=== PATIENT | female | born 1940 | race Caucasian/White ===

== ENCOUNTER → 2016-09-16 | Outpatient (CLI) | payer MEDICARE, OTHER ==
[~2016-09-16] MED LIST: AC500T PO; AGM875T PO; FLUC200T45 PO; PRD20T PO; SULF1TAB38 PO
--- OUTSIDE RECORDS SUMMARY | 2016-09-16 07:17 | XMS REPORT | Continuity of Care Document ---
Author Author [facility] Organization [facility] Address Unknown Phone Unavailable Care Team Providers Care Obgyn Hospitalist Physician Name Role Phone DIETER JACKSON MD PP Insurance Providers Payer Name Policy Number Subscriber Name Relationship s Medicare [id number] Brigid Toro Self / Same As Patient [employer] [id number] Brigid Toro Self / Same As Patient Advance Directives Directive Response Recorded Date Advance Directives N 03/24/13 3:13pm Problems No Known Problems or Medical conditions. Social History History Response Recorded Date/Time Alcohol Use Denies Use 03/24/13 3:13pm Recreational Drug Use N 03/24/13 3:13pm Recent Foreign Travel N 03/24/13 3:13pm Recent Infectious Disease Exposure N 3:13pm Hospitalization with Isolation Denies 3:13pm Allergies, Adverse Reactions, Alerts Allergen Type Severity Reaction Last Updated diphenhydramine HCl Adverse Reaction Mild HYPERACTIVITY 04/15/11 Medications Medication Dose Units Route Sig Qty Days Fluconazole (Diflucan 200 Mg Tab) 1 Each PO DAILY 10 Amoxicillin/Clavulanate Potassium (Augmentin 875-125 Tablet) 1 Tab PO BID 20 Acetaminophen (Tylenol) 500 Mg PO PRN Prednisone 40 Mg PO DAILY 6 Trimethoprim/Sulfamethoxazole (Bactrim Ds) 1 Ea PO BID 20 Response Recorded Date/Time Status not known Unknown Results No Known Relevant Diagnostic Tests, Laboratory Data and/or Discharge Summary. Encounters Encounter Location Date/Time Departed Emergency Room [facility] 3:03pm
--- NOTE | 2016-09-16 11:49 | Diagnostic Imaging Report ---
PROCEDURE: US Abdomen, limited. TECHNIQUE: Multiple realtime grayscale images were obtained over the abdomen in various projections. INDICATION: Ultrasound of the abdomen. INDICATION: Left lower quadrant mass. FINDINGS: The palpable area appears to correspond with a hernia with an abdominal wall defect measuring 9.7 x 6.6 cm that is accentuated with Valsalva maneuver. It probably contains abdominal fat and possibly small bowel loops. IMPRESSION: Findings suggestive of a relatively large ventral hernia in the left lower quadrant. Correlate clinically and with CT scan if needed. Dictated by: Dictated on workstation # [id number]
== END ==
LOC: RAD 07:14
PROVIDERS: ATTEND Nurse Practitioner Family
DX: R19.04 Left lower quadrant abdominal swelling, mass and lump (principal)
CPT/HCPCS: 76705

== ENCOUNTER → 2017-03-23 | Outpatient (CLI) | payer MEDICARE, OTHER ==
--- NOTE | 2017-03-23 13:26 | Diagnostic Imaging Report ---
CLINICAL INDICATION: Patient with sinus pressure and headache. EXAM: Axial maxillofacial CT scan performed without IV contrast with coronal reformations. COMPARISON: CT scan sinuses dated 04/30/2013. FINDINGS: PARANASAL SINUSES: FRONTAL: Unremarkable. ETHMOID: Unremarkable. MAXILLARY: Unremarkable. SPHENOID: There is mucosal thickening. 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 NASAL SEPTUM: Stable rightward nasal septal deviation. VISUALIZED TEMPORAL BONE STRUCTURES: Unremarkable. BONY STRUCTURES: Unremarkable. EXTRACRANIAL SOFT TISSUE/ ORBITS: Unremarkable. IMPRESSION: 1: There is minimal sphenoid sinus disease. 2: There is stable rightward nasal septal deviation. 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 Dictated by: Dictated on workstation # [id number]
== END ==
LOC: RAD 11:51
PROVIDERS: ATTEND Otolaryngology Otolaryngology/Facial Plastic Surgery
DX: J34.2 Deviated nasal septum (principal); J34.9 Unspecified disorder of nose and nasal sinuses
CPT/HCPCS: 70486

== ENCOUNTER → 2018-02-22 | Outpatient (CLI) | payer MEDICARE, OTHER ==
--- NOTE | 2018-02-22 18:28 | Diagnostic Imaging Report ---
INDICATION: Left ankle pain. FINDINGS: Three views of the left ankle show no fracture, dislocation or other acute abnormalities. IMPRESSION: Negative left ankle. Dictated by: Dictated on workstation # [id number]
== END ==
LOC: RAD 10:21
PROVIDERS: ATTEND Nurse Practitioner Family
DX: M25.572 Pain in left ankle and joints of left foot (principal)
CPT/HCPCS: 73610

== ENCOUNTER 2018-05-15 22:24 | Emergency (ER) | payer MEDICARE, OTHER ==
[~2018-05-15] VITALS: Ht 152.4 cm; Wt 89.4 kg
--- OUTSIDE RECORDS SUMMARY | 2018-05-15 22:28 | XMS REPORT | Clinical Summary ---
Author Author [facility] Organization [facility] Address Unknown Phone Unavailable Care Team Providers Care Excel Vba Developer Name Role Phone PCP Unavailable Source Comments Some departments are not documenting in the electronic medical record. If you do not see the information that you expected, contact Release of Information in the Health Information Management department at [phone] for further assistance in locating additional records.[facility] Allergies Not on File Current Medications Not on file Active Problems Not on file Encounters Date Type Specialty Care Team Description 04/20/2018 Ancillary Radiology Outpatient, Radiologist Diagnosis unknown Orders 02/22/2018 Hospital Radiology Encounter from Last 3 Months Social History Tobacco Use Types Packs/Day Years Used Date Never Assessed Sex Assigned at Date Recorded Not on file Last Filed Vital Signs Not on file Plan of Treatment Health Maintenance Due Date Last Done Comments PHYSICAL (COMPREHENSIVE) 1947 EXAM PERTUSSIS VACCINE 1952 TETANUS VACCINE 1958 SHINGLES RECOMBINANT 1991 VACCINE (1 of 2) OSTEOPOROSIS SCREENING 2006 PNEUMONIA (PCV13/PPSV23) 2006 VACCINES (1 of 2 - PCV13) INFLUENZA VACCINE 06/05/2018 Results * GENERAL RAD LOWER EXT EXTERNAL IMAGING (02/22/2018) Narrative Performed At This order has been auto finalized and does not contain a result. from Last 3 Months
--- OUTSIDE RECORDS SUMMARY | 2018-05-15 22:28 | XMS REPORT | Encounter Summary ---
Author Author [facility] Organization [facility] Address Unknown Phone Unavailable Care Team Providers Care Credit Risk Specialist Name Role Phone PCP Unavailable Encounter Details Date Type Department Care Team Description 02/22/2018 Hospital [facility] Encounter Hospital Radiology [facility] [address] [place] [address] Social History Tobacco Use Types Packs/Day Years Used Date Never Assessed Sex Assigned at Date Recorded Not on file as of this encounter Plan of Treatment Not on fileas of this encounter Results * GENERAL RAD LOWER EXT EXTERNAL IMAGING (02/22/2018) Narrative Performed At This order has been auto finalized and does not contain a result. in this encounter Visit Diagnoses Diagnosis Diagnosis unknown Other unknown and unspecified cause of morbidity or mortality
--- OUTSIDE RECORDS SUMMARY | 2018-05-15 22:28 | XMS REPORT | Continuity of Care Document ---
Author Author [facility] Organization [facility] Address Unknown Phone Unavailable Allergies Active Description Code Type Severity Reaction Onset Reported/Identified Relationship to Patient Clinical Status Yes diphenhydramine HCl [id number] Drug Allergy Mild HYPERACTIVITY 2010 Medications There is no data. 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 03/25/2013 CATHIE WEBSTER MD Ot 784.7 EPISTAXIS 03/25/2013 CATHIE WEBSTER MD Ot V58.69 OTH MED,LT,CURRENT USE 09/17/2016 EMERITA FARRIS ACUTE CARE ASSISTANT Ot R19.04 LEFT LOWER QUADRANT ABDOMINAL SWELLING, 10/06/2016 EMERITA FARRIS ACUTE CARE ASSISTANT Ot R19.04 LEFT LOWER QUADRANT ABDOMINAL SWELLING, 10/08/2016 EMERITA FARRIS ACUTE CARE ASSISTANT Ot R19.04 LEFT LOWER QUADRANT ABDOMINAL SWELLING, 04/14/2017 CLAUDIO FABIAN MD Ot 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 04/14/2017 CLAUDIO FABIAN MD Ot J34.9 UNSPECIFIED DISORDER OF NOSE AND NASAL S 04/30/2017 CLAUDIO FABIAN MD Ot 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 04/30/2017 CLAUDIO FABIAN MD Ot J34.9 UNSPECIFIED DISORDER OF NOSE AND NASAL S 02/23/2018 EMERITA FARRIS ACUTE CARE ASSISTANT Ot M25.572 PAIN IN LEFT ANKLE AND JOINTS OF LEFT FO 03/14/2018 EMERITA FARRIS ACUTE CARE ASSISTANT Ot M25.572 PAIN IN LEFT ANKLE AND JOINTS OF LEFT FO 03/17/2018 EMERITA FARRIS ACUTE CARE ASSISTANT Ot M25.572 PAIN IN LEFT ANKLE AND JOINTS OF LEFT FO 04/24/2018 KERRIE MORE Ot 473.9 CHRONIC SINUSITIS NOS 04/24/2018 EMERITA FARRISP Ot R19.04 LEFT LOWER QUADRANT ABDOMINAL SWELLING, 04/24/2018 RUI BENDER, CLAUDIO Wiseman Ot 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 Results There is no data. Encounters ACCT No. Visit Date/Time Discharge Status Pt. Type Provider Facility Loc./Unit Complaint [id number] 04/26/2018 08:59:00 04/26/2018 23:59:59 CLS Outpatient CLAUDIO GALLEGOS MD [facility] RAD LACERATION OF MUSCLES AND TENDONS LT LEG [id number] 02/22/2018 10:21:00 02/22/2018 23:59:59 CLS Outpatient EMERITA FARRIS [facility] RAD LEFT ANKLE PAIN [id number] 03/23/2017 11:51:00 03/23/2017 23:59:59 CLS Outpatient CLAUDIO FABIAN MD [facility] RAD CHRONIC SINUSITIS [id number] 09/16/2016 07:14:00 09/16/2016 23:59:59 CLS Outpatient EMERITA FARRISP [facility] RAD LLQ MASS [id number] 04/30/2013 08:33:00 04/30/2013 23:59:59 CLS Outpatient KERRIE MORE [facility] RAD RECURRENT SINUSITIS [id number] 03/25/2013 09:13:00 03/25/2013 12:00:00 DIS Emergency DARIN BENDER, CATHIE Shin [facility] ER BLOODY NOSE [id number] 03/24/2013 15:03:00 03/24/2013 17:45:00 DIS Emergency ANDREINA KEANE DO [facility] ER NOSE BLEED
--- OUTSIDE RECORDS SUMMARY | 2018-05-15 22:28 | XMS REPORT | Continuity of Care Document ---
Author Author [facility] Organization [facility] Address Unknown Phone Unavailable Care Team Providers Care Passenger Relations Representative Name Role Phone DIETER JACKSON MD PP Insurance Providers Payer Name Policy Number Subscriber Name Relationship s Medicare [id number] Brigid Toro Self / Same As Patient [employer] [id number] Brigid Toro Self / Same As Patient Advance Directives Directive Response Recorded Date Advance Directives N 03/25/13 9:18am Problems No Known Problems or Medical conditions. Social History History Response Recorded Date/Time Alcohol Use Denies Use 03/25/13 9:18am Recreational Drug Use N 03/25/13 9:18am Recent Foreign Travel N 03/25/13 9:18am Recent Infectious Disease Exposure N 9:18am Hospitalization with Isolation Denies 9:18am Allergies, Adverse Reactions, Alerts Allergen Type Severity [...] Encounters Encounter Location Date/Time Departed Emergency Room [facility] 9:13am
--- OUTSIDE RECORDS SUMMARY | 2018-05-15 22:28 | XMS REPORT | Encounter Summary ---
Author Author [facility] Organization [facility] Address Unknown Phone Unavailable Care Team Providers Care Hedis Review Nurse Name Role Phone PCP Unavailable Encounter Details Date Type Department Care Team Description 04/20/2018 Ancillary Rad Outpatient, Radiologist Diagnosis unknown Orders [address] [place] [address] Social History Tobacco Use Types Packs/Day Years [...]
[2018-05-15] MEDS ORDERED: LACTATED RINGERS 1,000 ML IV ONE (22:41)
[2018-05-15] MEDS ORDERED: THYR65TA5 (22:44)
[2018-05-15] MEDS ORDERED: ONDANSETRON 4 MG/2 ML (SDV) Z0FRAN IVP ONE (22:45)
[2018-05-15 22:58] LABS: BASOPHILS % (AUTO) 0 % (0-10); EOSINOPHILS % (AUTO) 0 % (0-10); HEMATOCRIT 43 % (35-52); HEMOGLOBIN 14.6 G/DL (11.5-16.0); LYMPHOCYTES # (AUTO) 0.8 X 10^3 (1.0-4.0); LYMPHOCYTES % (AUTO) 9 % (12-44); MEAN CORPUSCULAR HEMOGLOBIN 29 PG (25-34); MEAN CORPUSCULAR HGB CONC 34 G/DL (32-36); MEAN CORPUSCULAR VOLUME 85 FL (80-99); MEAN PLATELET VOLUME 9.5 FL (7.4-10.4); MONOCYTES # (AUTO) 0.4 X 10^3 (0.0-1.0); MONOCYTES % (AUTO) 4 % (0-12); NEUTROPHILS # (AUTO) 7.6 X 10^3 (1.8-7.8); NEUTROPHILS % (AUTO) 86 % (42-75); PLATELET COUNT 161 10^3/uL (130-400); RED BLOOD COUNT 5.13 10^6/uL (4.35-5.85); WHITE BLOOD COUNT 8.8 10^3/uL (4.3-11.0)
--- NOTE | 2018-05-15 23:01 | ED General ---
General Chief Complaint: Abdominal/GI Problems Stated Complaint: SOB/WEAKNESS Nursing Triage Note: pt reports starting this am she woke up with dizziness and walters. Pt reports as the day progressed she became more nauseated and weak and starting vomiting. Nursing Sepsis Screen: No Definite Risk Source of Information: Patient History of Present Illness Date Seen by Provider: May 15, 2018 Time Seen by Provider: 22:25 Initial Comments PT ARRIVES VIA POV FROM HOME STATES SHE CAME TO ER BECAUSE SHE HAS BEEN SHAKEY AND NAUSEATED ALL DAY STATES SHE WOKE UP THIS MORNING AND STATES HER "HEAD FELT TWICE BIG NORMAL " BUT NO PAIN / NO HEADACHE STATES LATER IN THE MORNING SHE STARTED FEELING A LITTLE DIZZY WAS OUTSIDE THIS AFTERNOON AND STARTED TO GET NAUSEATED HAS VOMITED X 3 THIS EVENING, IS STILL NAUSEATED, BUT HAS CONTINUED TO EAT AND DRINK TODAY NO ABDOMINAL PAIN NO DIARRHEA OR CONSTIPATION--HAD 3 SOFT BM'S TODAY NO FEVER PT STATES "I SHAKE AND I THROW UP" STATES HER EARS ARE RINGING NO CHEST PAIN SLIGHT SHORTNESS OF BREATH NO SWELLING IN LEGS/ FEET OR PAIN IN CALVES NO VISION CHANGES NO PARESTHESIAS OR MOTOR DEFICITS FEELS WEAK ALL OVER NO KNOWN SICK CONTACTS OR SUSPICIOUS FOODS NO HISTORY OF SIMILAR PCP: 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 Allergies and Home Medications Allergies Coded Allergies: diphenhydramine HCl (Unverified Adverse Reaction, Mild, HYPERACTIVITY, 07/16) Home Medications Acetaminophen 500 Mg Tablet, 500 MG PO PRN, (Reported) Amoxicillin/Clavulanate K 1 Tab Tablet, 1 TAB PO BID FOR INFECTION Prescribed by: ANDREINA KEANE on 03/24/131719 Fluconazole 200 Mg Tablet, 1 EACH PO DAILY FOR YEAST Prescribed by: ANDREINA KEANE on 03/24/131719 Ondansetron 4 Mg Tab.rapdis, 4 MG PO Q4H Prescribed by: ANDREINA KEANE on 05/16/18 0048 Patient Home Medication List Home Medication List Reviewed: Yes Review of Systems Review of Systems Constitutional: see HPI; No chills, No diaphoresis; dizziness; No fever; malaise, weakness, other (SHAKEY) EENTM: no symptoms reported Respiratory: see HPI, short of breath Cardiovascular: no symptoms reported; No edema, No palpitations, No syncope, No vascular heart diseas Gastrointestinal: see HPI; No abdominal pain, No constipation, No diarrhea, No loss of appetite; nausea, vomiting Genitourinary: no symptoms reported Musculoskeletal: no symptoms reported Skin: no symptoms reported Psychiatric/Neurological: See HPI; Denies Numbness, Denies Paresthesia, Denies Seizure, Denies Tingling, Denies Tremors, Denies Weakness Hematologic/Lymphatic: No Symptoms Reported Immunological/Allergic: no symptoms reported Past Cysxjhm-Gsetxj-Gfneur Hx Patient Social History Alcohol Use: Denies Use Recreational Drug Use: No Smoking Status: Never a Smoker Recent Foreign Travel: No Contact w/Someone Who Travel: No Recent Infectious Disease Expo: No Seasonal Allergies Seasonal Allergies: Yes Past Medical History Surgeries: Yes (HYST/BSO; THUMB SURGERY) Gallbladder, Hysterectomy, Oophorectomy, Orthopedic Respiratory: No Cardiac: No Neurological: 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 oz. 89.821405hb; BMI Method:Stated General Appearance: No Apparent Distress, Obese, Other (TALKS AT LENGTH, WITHOUT DIFFICULTY) HEENT: PERRL/EOMI Neck: Full Range of Motion, Normal Inspection, Non Tender, Supple Respiratory: Normal Breath Sounds, No Accessory Muscle Use, No Respiratory Distress Cardiovascular: Regular Rate, Rhythm, No Edema, No JVD, No Murmur, Normal Peripheral Pulses Gastrointestinal: Normal Bowel Sounds, No Organomegaly, No Pulsatile Mass, Non Tender, Soft, Hernia (VENTRAL HERNIA) Back: No CVA Tenderness Extremity: Normal Capillary Refill, Normal Inspection, Normal Range of Motion, Non Tender, No Calf Tenderness, No Pedal Edema Neurologic/Psychiatric: Alert, Oriented x3, No Motor/Sensory Deficits, Normal Mood/Affect, 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0 10^3/uL Red Blood Count 5.13 4.35-5.85 10^6/uL Hemoglobin 14.6 11.5-16.0 G/DL Hematocrit 43 35-52 % Mean Corpuscular Volume 85 80-99 FL Mean Corpuscular Hemoglobin 29 25-34 PG Mean Corpuscular Hemoglobin Concent 34 32-36 G/DL Red Cell Distribution Width 15.0 H 10.0-14.5 % Platelet Count 161 130-400 10^3/uL Mean Platelet Volume 9.5 7.4-10.4 FL Neutrophils (%) (Auto) 86 H 42-75 % Lymphocytes (%) (Auto) 9 L 12-44 % Monocytes (%) (Auto) 4 0-12 % Eosinophils (%) (Auto) 0 0-10 % Basophils (%) (Auto) 0 0-10 % Neutrophils # (Auto) 7.6 1.8-7.8 X 10^3 Lymphocytes # (Auto) 0.8 L 1.0-4.0 X 10^3 Monocytes # (Auto) 0.4 0.0-1.0 X 10^3 Eosinophils # (Auto) 0.0 0.0-0.3 10^3/uL Basophils # (Auto) 0.0 0.0-0.1 10^3/uL Prothrombin Time 13.4 12.2-14.7 SEC INR Comment 1.0 0.8-1.4 Activated Partial Thromboplast Time 28 24-35 SEC Sodium Level 136 135-145 MMOL/L Potassium Level 4.1 3.6-5.0 MMOL/L Chloride Level 104 98-107 MMOL/L Carbon Dioxide Level 17 L 21-32 MMOL/L Anion Gap 15 H 5-14 MMOL/L Blood Urea Nitrogen 18 7-18 MG/DL Creatinine 0.87 0.60-1.30 MG/DL Estimat Glomerular Filtration Rate > 60 BUN/Creatinine Ratio 21 Glucose Level 122 H 70-105 MG/DL Calcium Level 9.3 8.5-10.1 MG/DL Corrected Calcium 9.3 8.5-10.1 MG/DL Magnesium Level 1.9 1.8-2.4 MG/DL Total Bilirubin 0.4 0.1-1.0 MG/DL Aspartate Amino Transf (AST/SGOT) 28 5-34 U/L Alanine Aminotransferase (ALT/SGPT) 28 0-55 U/L Alkaline Phosphatase 88 40-136 U/L Troponin I < 0.30 <0.30 NG/ML B-Type Natriuretic Peptide 97.7 <100.0 PG/ML Total Protein 7.4 6.4-8.2 GM/DL Albumin 4.0 3.2-4.5 GM/DL Amylase Level 91 25-125 U/L Lipase 52 8-78 U/L Urine Color YELLOW Urine Clarity CLEAR Urine pH 7 5-9 Urine Specific [place] 1.010 L 1.016-1.022 Urine Protein 1+ H NEGATIVE Urine Glucose (UA) NEGATIVE NEGATIVE Urine Ketones NEGATIVE NEGATIVE Urine Nitrite NEGATIVE NEGATIVE Urine Bilirubin NEGATIVE NEGATIVE Urine Urobilinogen NORMAL NORMAL MG/DL Urine Leukocyte Esterase 1+ H NEGATIVE Urine RBC (Auto) NEGATIVE NEGATIVE Urine RBC NONE /HPF Urine WBC 0-2 /HPF Urine Squamous Epithelial Cells 10-25 H /HPF Urine Crystals NONE /LPF Urine Bacteria TRACE /HPF Urine Casts NONE /LPF Urine Mucus NEGATIVE /LPF Urine Culture Indicated NO My Orders Orders - ANDREINA KEANE DO Saline Lock/Iv-Start (05/15/18 22:41) Ekg Tracing (05/15/18 22:41) Monitor-Rhythm Ecg Trace Only (05/15/18 22:41) Ct Head Wo (05/15/18 22:41) Amylase (05/15/18 22:41) BNP (05/15/18 22:41) Cbc With Automated Diff (05/15/18 22:41) Comprehensive Metabolic Panel (05/15/18 22:41) Lipase (05/15/18 22:41) Magnesium (05/15/18 22:41) Protime With Inr (05/15/18 22:41) Partial Thromboplastin Time (05/15/18 22:41) Troponin I (05/15/18 22:41) Ua Culture If Indicated (05/15/18 22:41) Acute Abd Series (05/15/18 22:41) Saline Lock/Iv-Start (05/15/18 22:41) Lactated Ringers (Lr 1000 Ml Iv Solution (05/15/18 22:41) Ondansetron Injection (Zofran Injectio (05/15/18 22:45) Medications Given in ED Current Medications Medications Dose Ordered Sig/Hector Route Start Time Stop Time Status Last Admin Dose Admin Lactated Ringer's 1,000 ml @ 0 mls/hr Q0M ONCE IV 05/15/18 22:41 05/15/18 22:43 DC 05/15/18 23:03 0 MLS/HR Ondansetron HCl 4 mg ONCE ONCE IVP 05/15/18 22:45 05/15/18 22:46 DC 05/15/18 23:03 4 MG Vital Signs/I&O 05/15/18 05/16/18 22:31 01:03 Temp 98.5 98.5 Pulse 73 73 Resp 16 16 B/P (MAP) 186/78 (114) 163/93 (114) Pulse Ox 92 92 05/16/18 00:00 Intake Total 1000 ml Balance 1000 ml Capillary Refill : Less Than 3 Seconds Blood Pressure Mean: 114 Progress Note : Progress Note NAUSEA IMPROVED AND NO VOMITING DURING ER STAY NO SHAKING/TREMORS DURING ER STAY STATES SHE FEELS BETTER AT DISMISSAL ECG Initial ECG Impression Date: May 15, 2018 Initial ECG Impression Time: 22:59 Initial ECG Rate: 2259 Initial ECG Rhythm: Normal Sinus Diagnostic Imaging Comments ACUTE ABDOMEN XRAYS--NO ACUTE PROCESS, PENDING RADIOLOGIST REVIEW CT HEAD--NO ACUTE PROCESS, PER STAT RAD VIA FAX @ 6720 Reviewed: Reviewed by Me Departure Impression Primary Impression: Nausea & vomiting Additional Impression: POSSIBLE VIRAL SYNDROME Disposition: 01 HOME, SELF-CARE Condition: Stable Departure-Patient Inst. Referrals: EMERITA FARRIS DNP (PCP) Primary Care Physician GHANSHYAM FARRIS DO (Family) Primary Care Physician Patient Instructions: Nausea and Vomiting, Adult (DC), Viral Gastroenteritis, Adult (DC) Add. Discharge Instructions: LOTS OF CLEAR LIQUIDS--WATER, BROTH, JELLO, GATORADE BRATS DIET--BANANAS, RICE, APPLESAUCE, TOAST, SALTINES FOLLOW UP WITH YOUR DR IN 2-3 DAYS IF NO BETTER All discharge instructions reviewed with patient and/or family. Voiced understanding. Scripts Ondansetron (Zofran Odt) 4 Mg Tab.rapdis 4 MG PO Q4H for Nausea/Vomiting, #10 TAB Prov: ANDREINA KEANE DO 05/16/18 ANDREINA KEANE DO May 15, 2018 23:01
[2018-05-15 23:07] LABS: PROTHROMBIN TIME PATIENT 13.4 SEC (12.2-14.7)
[2018-05-15 23:15] LABS: ALANINE AMINOTRANSFERASE 28 U/L (0-55); ALKALINE PHOSPHATASE 88 U/L (40-136); AMYLASE 91 U/L (25-125); BILIRUBIN,TOTAL 0.4 MG/DL (0.1-1.0); BUN/CREATININE RATIO 21; CALCIUM 9.3 MG/DL (8.5-10.1); CARBON DIOXIDE 17 MMOL/L (21-32); CHLORIDE 104 MMOL/L (98-107); CREATININE SERUM 0.87 MG/DL (0.60-1.30); GFR ESTIMATED > 60; GLUCOSE 122 MG/DL (70-105); LIPASE 52 U/L (8-78); MAGNESIUM 1.9 MG/DL (1.8-2.4); POTASSIUM 4.1 MMOL/L (3.6-5.0); SODIUM 136 MMOL/L (135-145); TOTAL PROTEIN 7.4 GM/DL (6.4-8.2)
[2018-05-15 23:59] LABS: BILIRUBIN,URINE NEGATIVE (NEGATIVE); CLARITY,URINE CLEAR; COLOR,URINE YELLOW; GLUCOSE, URINE (UA) NEGATIVE (NEGATIVE); KETONES,URINE NEGATIVE (NEGATIVE); LEUKOCYTE ESTERASE ,URINE 1+ (NEGATIVE); NITRITE,URINE NEGATIVE (NEGATIVE); PH,URINE 7 (5-9); PROTEIN,URINE 1+ (NEGATIVE); UROBILINOGEN,URINE NORMAL (NORMAL)
[2018-05-16 00:07] LABS: WBC,URINE 0-2 /HPF
[2018-05-16 00:08] LABS: BACTERIA,URINE TRACE /HPF
[2018-05-16] MEDS ORDERED: ONDA4TAB8 PO (00:48)
[2018-05-16 01:03] VITALS: BP 163/93
--- NOTE | 2018-05-16 07:25 | Diagnostic Imaging Report ---
INDICATION: Fall with injury to head. Noncontrast brain CT is performed. FINDINGS: There are diffuse atrophic changes. There are low-density changes in the deep white matter compatible with chronic ischemic change. There is no acute hemorrhage or subdural or epidural collection. There is no acute appearing process. Calvarial windows were unremarkable. IMPRESSION: Atrophy and chronic changes in deep white matter. No acute intracranial abnormality. Dictated by: Dictated on workstation # [id number]
--- NOTE | 2018-05-16 07:36 | Diagnostic Imaging Report ---
INDICATION: Nausea TECHNIQUE: Single view chest with supine and upright radiographs of the abdomen. 11:51 PM CORRELATION STUDY: None FINDINGS: Heart size enlarged. Vasculature overall within normal limits. Lungs demonstrate no infiltrate. Mild severity fecal retention. No evidence for large fecal impaction. No abnormally dilated loops of bowel or findings to suggest high degree bowel obstruction. Cholecystectomy clips in the right upper quadrant. No definitive pathologic intra-abdominal calcifications. IMPRESSION: 1. Negative for acute cardiopulmonary abnormality. 2. Unremarkable appearing bowel gas pattern. Dictated by: Dictated on workstation # [id number]
== END 2018-05-16 01:03 | disposition home or self-care (01) ==
LOC: EDUNIT# 22:24 → ER 22:25
DX: R11.2 Nausea with vomiting, unspecified (principal); S09.90XA Unspecified injury of head, initial encounter; M10.9 Gout, unspecified; E66.9 Obesity, unspecified; F41.9 Anxiety disorder, unspecified; F32.9 Major depressive disorder, single episode, unspecified; K21.9 Gastro-esophageal reflux disease without esophagitis; Z88.8 Allergy status to other drugs, medicaments and biological substances; Z68.38 Body mass index [BMI] 38.0-38.9, adult; Z90.710 Acquired absence of both cervix and uterus; Z87.19 Personal history of other diseases of the digestive system; W19.XXXA Unspecified fall, initial encounter
CPT/HCPCS: 36415; 70450; 74022; 80053; 81000; 82150; 83690; 83735; 83880; 84484; 85025; 85610; 85730; 93005; 93041; 96361; 96374

== ENCOUNTER → 2020-10-31 | Outpatient (CLI) | payer MEDICARE, OTHER ==
[~2020-10-31] MED LIST changes: +ONDA4TAB8 PO; +THYR65TA5
--- NOTE | 2020-10-31 13:08 | Diagnostic Imaging Report ---
CLINICAL INDICATIONS: Patient with thoracic facet joint pain. Patient with lumbar pain and paresthesias in lower extremity. EXAM: X-ray of the lumbar spine, 3 views. COMPARISON: X-ray of the lumbar spine dated 04/02/2009. FINDINGS: There is no acute lumbar spine fracture or dislocation. There are hypertrophic spurs involving the thoracolumbar spine which has slightly progressed in the interim. The lumbar spine intervertebral disk heights are maintained. There is progression of hypertrophic spurs and facet arthropathy involving the lumbar spine. There is sclerosis of the bilateral sacroiliac joints. Surgical clips are seen overlying the right upper quadrant which could be related to cholecystectomy changes. IMPRESSION: 1: There is no acute fracture or dislocation. 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 Dictated by: Dictated on workstation # [id number]
--- NOTE | 2020-10-31 16:32 | Diagnostic Imaging Report ---
CLINICAL INDICATION: Patient with thoracic facet joint pain. Patient has lumbar pain and paresthesia in the lower extremities. EXAM: X-ray of the thoracic spine, 3 views including swimmer's view. COMPARISON: X-ray of the thoracic spine dated 04/02/2009. FINDINGS: Visualized portions of the upper thoracic spinal lateral view are partially obscured by overlapping anatomical structures. There is slight progression of hypertrophic spurs throughout the thoracic spine. There is also slight progression of loss of disc space height at multiple levels involving the mid to upper thoracic spine. There is no acute thoracic spine fracture or dislocation. Surgical clips are seen overlying the right upper quadrant which could be related to cholecystectomy changes. There are hypertrophic spurs involving the cervical spine. IMPRESSION: There is progression of thoracic spine degenerative disease with no acute fracture or dislocation. Dictated by: Dictated on workstation # [id number]
== END ==
LOC: RAD 11:55
PROVIDERS: ATTEND Nurse Practitioner Family
DX: M47.815 Spondylosis without myelopathy or radiculopathy, thoracolumbar region (principal); R20.2 Paresthesia of skin
CPT/HCPCS: 72072; 72110

== ENCOUNTER → 2022-12-02 | Outpatient (CLI) | payer MEDICARE, OTHER ==
--- NOTE | 2022-12-02 15:36 | Diagnostic Imaging Report ---
PROCEDURE: US Bilateral lower extremity arterial. TECHNIQUE: Multiple real-time grayscale images are obtained through both lower extremity arterial systems with color Doppler imaging and color Doppler spectral analysis. 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 No focal elevated velocity suggests significant stenosis. IMPRESSION: Atherosclerotic changes within the lower extremities without hemodynamically significant stenosis or occlusion. Dictated by: Dictated on workstation # [id number]
== END ==
LOC: RAD 12:16
PROVIDERS: ATTEND Nurse Practitioner Family
DX: I73.9 Peripheral vascular disease, unspecified (principal); R09.89 Other specified symptoms and signs involving the circulatory and respiratory systems; K59.09 Other constipation
CPT/HCPCS: 93925

== ENCOUNTER 2023-03-08 12:00 | Emergency (ER) | payer MEDICARE, OTHER ==
[~2023-03-08] VITALS: Ht 152 cm; Wt 86.0 kg
--- NOTE | 2023-03-08 12:30 | ED Integumentary General ---
General Chief Complaint: Bite-Animal/Human/Insect Stated Complaint: BITES OF UNKNOWN ORIGIN Nursing Triage Note: PT AMB TO RM 7 WITH C/O BUG BITES AFTER PULLING WEEDS TUESDAY. PT NOTICED BITES TUESDAY MORNING Source: patient Exam Limitations: no limitations History of Present Illness Date Seen by Provider: Mar 08, 2023 Time Seen by Provider: 12:15 Initial Comments Patient is an 82-year-old female who presents to the emergency room with a rash to her buttocks, posterior legs right forearm and one little spot on her anterior lower abdominal wall. Patient is concerned for "oak mites". She states that she was clearing brush on of last week picking up loads of clark and sticks etc. She then had a fall in the yard on Tuesday and when she stood up she was having pain which caused her to examine herself and she noticed the rash. She states last night she had intense burning over the areas of rash. She states it lasted for about 2 hours. She denies fevers or chills. No shortness of breath. No diarrhea. No other concerns. She is not a diabetic. She has no history of arthritis. She has never had a rash like this before. She has used alcohol on the rash as well as cortisone and noxema skin cream. Timing/Duration: other (5 days) Location: torso (buttocks), extremities Possible Cause: no cause identified Associated Symptoms: denies symptoms Allergies and Home Medications Allergies Coded Allergies: diphenhydramine HCl (Unverified Adverse Reaction, Mild, HYPERACTIVITY, 04/15/11) morphine (Verified Adverse Reaction, Unknown, HEADACHE, 03/08/23) Patient Home Medication List Home Medication List Reviewed: Yes Acetaminophen (Tylenol) 500 Mg Tablet, 500 MG PO PRN, (Reported) Entered as Reported by: MARTINEZ JANG on 03/24/13 1515 Amoxicillin/Clavulanate K (Augmentin 875-125 Tablet) 1 Tab Tablet, 1 TAB PO BID Prescribed by: ANDREINA KEANE on 03/24/13 172 Fluconazole (Diflucan 200 Mg Tab) 200 Mg Tablet, 1 EACH PO DAILY Prescribed by: ANDREINA KEANE on 03/24/13 172 Ondansetron (Zofran Odt) 4 Mg Tab.rapdis, 4 MG PO Q4H Prescribed by: ANDREINA KEANE on 05/16/18 0048 Thyroid,Pork (Nature-Throid) 65 Mg Tablet, (Reported) Entered as Reported by: HENRY ALANIS on 05/15/18 2244 Triamcinolone Acetonide (Triamcinolone Acetonide 0.5% Cream) 0.5 % Cream..g., 1 APPLIC TP BID Prescribed by: BRAYDON PUENTE on 03/08/23 1328 Discontinued Medications Triamcinolone Acetonide (Triamcinolone Acetonide 0.5% Cream) 0.5 % Cream..g., 1 APPLIC TP BID Prescribed by: BRAYDON PUENTE on 03/08/23 1316 Review of Systems Review of Systems Constitutional: see HPI EENTM: no symptoms reported Respiratory: no symptoms reported Cardiovascular: no symptoms reported Gastrointestinal: no symptoms reported Genitourinary: no symptoms reported Musculoskeletal: no symptoms reported Skin: No pruritus; rash All Other Systems Reviewed Negative Unless Noted: Yes Past Vnztxfh-Fikpqs-Nvgnne Hx Patient Social History Tobacco Use?: No Use of E-Cig and/or Vaping dev: No Substance use?: No Alcohol Use?: No Pt feels they are or have been: No Seasonal Allergies Seasonal Allergies: Yes Past Medical History Surgery/Hospitalization HX: HYSTO, SAURABH Surgeries: Yes (HYST/BSO; THUMB SURGERY) Gallbladder, Hysterectomy, Oophorectomy, Orthopedic Respiratory: No Cardiac: No 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, 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 Genitourinary: No Gastrointestinal: Yes Abdominal Hernia, Gastroesophageal Reflux, Hiatal Hernia Musculoskeletal: Yes Gout Endocrine: Yes (OBESITY) Cancer: No Psychosocial: Yes Anxiety, Depression Integumentary: No Blood Disorders: No Adverse Reaction/Blood Tranf: No Physical Exam Vital Signs Vital Signs - First Documented 03/08/23 12:06 Temp 36.7 Pulse 85 Resp 14 B/P (MAP) 135/83 (100) Pulse Ox 96 O2 Delivery Room Air Capillary Refill : General Appearance: WD/WN, no apparent distress, obese HEENT: PERRL/EOMI Cardiovascular: regular rate, rhythm Respiratory: lungs clear, normal breath sounds, no respiratory distress, no accessory muscle use Gastrointestinal: non tender, soft Extremities: normal range of motion, no pedal edema Neurologic/Psychiatric: alert, normal mood/affect, oriented x 3 Skin: normal color, warm/dry, rash Skin Problem Location: generalized (buttocks; back of both legs. right forearm and one area to lower anterior abdominal wall - coin shaped; clearly demarcated; some are slightly raised/eczematous) Skin Problem Character: erythema, macules Progress/Results/Core Measures Results/Orders Lab Results Laboratory Tests Test 03/08/23 12:34 Range/Units White Blood Count 6.8 4.3-11.0 10^3/uL Red Blood Count 4.93 3.80-5.11 10^6/uL Hemoglobin 14.6 11.5-16.0 g/dL Hematocrit 45 35-52 % Mean Corpuscular Volume 92 80-99 fL Mean Corpuscular Hemoglobin 30 25-34 pg Mean Corpuscular Hemoglobin Concent 32 32-36 g/dL Red Cell Distribution Width 14.8 H 10.0-14.5 % Platelet Count 159 130-400 10^3/uL Mean Platelet Volume 9.6 9.0-12.2 fL Immature Granulocyte % (Auto) 1 % Neutrophils (%) (Auto) 71 42-75 % Lymphocytes (%) (Auto) 18 12-44 % Monocytes (%) (Auto) 7 0-12 % Eosinophils (%) (Auto) 3 0-10 % Basophils (%) (Auto) 1 0-10 % Neutrophils # (Auto) 4.9 1.8-7.8 10^3/uL Lymphocytes # (Auto) 1.2 1.0-4.0 10^3/uL Monocytes # (Auto) 0.4 0.0-1.0 10^3/uL Eosinophils # (Auto) 0.2 0.0-0.3 10^3/uL Basophils # (Auto) 0.0 0.0-0.1 10^3/uL Immature Granulocyte # (Auto) 0.1 0.0-0.1 10^3/uL Sodium Level 141 135-145 MMOL/L Potassium Level 4.2 3.6-5.0 MMOL/L Chloride Level 106 98-107 MMOL/L Carbon Dioxide Level 26 21-32 MMOL/L Anion Gap 9 5-14 MMOL/L Blood Urea Nitrogen 16 7-18 MG/DL Creatinine 0.96 0.60-1.30 MG/DL Estimat Glomerular Filtration Rate 59 BUN/Creatinine Ratio 17 Glucose Level 114 H 70-105 MG/DL Calcium Level 9.0 8.5-10.1 MG/DL Corrected Calcium 9.2 8.5-10.1 MG/DL Total Bilirubin 0.5 0.1-1.0 MG/DL Aspartate Amino Transf (AST/SGOT) 29 5-34 U/L Alanine Aminotransferase (ALT/SGPT) 29 0-55 U/L Alkaline Phosphatase 70 40-136 U/L C-Reactive Protein High Sensitivity 0.58 H 0.00-0.50 MG/DL Total Protein 7.0 6.4-8.2 GM/DL Albumin 3.7 3.2-4.5 GM/DL My Orders Orders - BRAYDON PUENTE MD Cbc With Automated Diff (03/08/23 12:25) Comprehensive Metabolic Panel (03/08/23 12:25) Hs C Reactive Protein (03/08/23 12:25) Vital Signs/I&O 03/08/23 03/08/23 12:06 13:33 Temp 36.7 Pulse 85 72 Resp 14 14 B/P (MAP) 135/83 (100) 125/76 Pulse Ox 96 96 O2 Delivery Room Air Room Air Blood Pressure Mean: 100 Progress Progress Note : Time: 13:19 Progress Note Seen and evaluated by me. Evaluation today includes physical exam, CBC, Chem-12 and CRP. Pertinent physical exam findings, diffuse coin shaped macular rash to the buttocks, lower extremities with scattered patches on the right upper ext remity and one lesion on the anterior abdominal wall. Patient's vital signs are stable. She is alert and oriented with no focal neurologic deficits. She is afebrile. Lungs are clear, heart is regular. Differential diagnosis based on history and physical exam contact dermatitis versus nummular eczema Patient's labs independently reviewed and interpreted by me. CBC is normal, Chem-12 is normal, CRP is 0.58. After discussion with the patient and further delineation of history, I believe this is more of a nummular eczema as a result of her work outside. Patient is advised to use steroid cream on the areas affected over the lower body. She will need to use the triamcinolone lotion twice a day for 2 to 4 weeks. I have encouraged her to have close follow-up with her primary care physician. I have advised her that once she has had this type of outbreak she may be more prone to this in the future. Return precautions to include fever, shortness of breath, worsening rash. These return precautions have been provided in both verbal and written format. Patient and her daughter who is at the bedside verbalized understanding and agreement of the plan of care. All questions are sought and answered. Patient is stable for discharge. Departure Impression Primary Impression: Dermatitis, nummular Disposition: 01 HOME, SELF-CARE Condition: Stable Departure-Patient Inst. Decision time for Depature: 13:16 Referrals: NO,LOCAL PHYSICIAN (PCP) Primary Care Physician GHANSHYAM FARRIS DO Patient Instructions: Skin Rash ED Add. Discharge Instructions: Bathe in warm water, not hot. Use a mild/gentle fragrance free soap. Apply the steroid cream where the lesions are twice a day for 1 month. PLease call your primary care physician for a follow up appointment in a week. Return to the Emergency Department for any new, concerning or emergent complaints. Scripts Triamcinolone Acetonide (Triamcinolone Acetonide 0.5% Cream) 0.5 % Cream..g. 1 APPLIC TP BID for 30 Days, #15 GM 1 Refill apply thin layer to affected area twice a day for 1 month Prov: BRAYDON PUENTE MD 03/08/23 Copy Copies To 1: GHANSHYAM FARRIS KATHRYN M MD Mar 08, 2023 12:30
[2023-03-08 12:39] LABS: BASOPHILS % (AUTO) 1 % (0-10); EOSINOPHILS # (AUTO) 0.2 10^3/uL (0.0-0.3); EOSINOPHILS % (AUTO) 3 % (0-10); HEMATOCRIT 45 % (35-52); HEMOGLOBIN 14.6 g/dL (11.5-16.0); LYMPHOCYTES # (AUTO) 1.2 10^3/uL (1.0-4.0); LYMPHOCYTES % (AUTO) 18 % (12-44); MEAN CORPUSCULAR HEMOGLOBIN 30 pg (25-34); MEAN CORPUSCULAR HGB CONC 32 g/dL (32-36); MEAN CORPUSCULAR VOLUME 92 fL (80-99); MEAN PLATELET VOLUME 9.6 fL (9.0-12.2); MONOCYTES # (AUTO) 0.4 10^3/uL (0.0-1.0); MONOCYTES % (AUTO) 7 % (0-12); NEUTROPHILS # (AUTO) 4.9 10^3/uL (1.8-7.8); NEUTROPHILS % (AUTO) 71 % (42-75); PLATELET COUNT 159 10^3/uL (130-400); WHITE BLOOD COUNT 6.8 10^3/uL (4.3-11.0)
[2023-03-08 12:49] LABS: ALBUMIN 3.7 GM/DL (3.2-4.5)
[2023-03-08 12:50] LABS: POTASSIUM 4.2 MMOL/L (3.6-5.0)
[2023-03-08 12:54] LABS: BILIRUBIN,TOTAL 0.5 MG/DL (0.1-1.0)
[2023-03-08 12:56] LABS: CREATININE SERUM 0.96 MG/DL (0.60-1.30)
[2023-03-08] MEDS ORDERED: TRIA15CR TP ×2 (13:16→13:28)
[2023-03-08 13:33] VITALS: BP 125/76
== END 2023-03-08 13:33 | disposition home or self-care (01) ==
LOC: EDUNIT# 12:00 → ER 12:03
DX: L30.0 Nummular dermatitis (principal); E66.9 Obesity, unspecified; Z68.37 Body mass index [BMI] 37.0-37.9, adult
CPT/HCPCS: 36415; 80053; 85025; 86141

== ENCOUNTER 2023-04-19 10:18 | Emergency (ER) | payer MEDICARE, OTHER ==
[~2023-04-19] VITALS: Ht 152 cm; Wt 88.4 kg
[~2023-04-19 10:18] MED LIST changes: +TRIA15CR TP
--- NOTE | 2023-04-19 10:50 | Diagnostic Imaging Report ---
CLINICAL HISTORY: Right arm pain. Injury. COMPARISON: None. TECHNIQUE: 2 views of the right humerus. FINDINGS: Acute spiral fracture seen involving the mid diaphysis of the right humerus with mild displacement. No focal osseous lesion. The right shoulder appears well aligned. IMPRESSION: 1. Acute spiral fracture involving the mid diaphysis of the right humerus. Dictated by: Dictated on workstation # [id number]
--- NOTE | 2023-04-19 11:08 | ED Fall/Injury ---
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 SLING AND SWATH APPLIED BY EMS Source: patient Exam Limitations: no limitations History of Present Illness Date Seen by Provider: Apr 19, 2023 Allergies and Home Medications Allergies Coded Allergies: diphenhydramine HCl (Unverified Adverse Reaction, Mild, HYPERACTIVITY, 04/15/11) morphine (Verified Adverse Reaction, Unknown, HEADACHE, 03/08/23) Patient Home Medication List Acetaminophen (Tylenol) 500 Mg Tablet, 500 MG PO PRN, (Reported) Entered as Reported by: MARTINEZ JANG on 03/24/13 1515 Amoxicillin/Clavulanate K (Augmentin 875-125 Tablet) 1 Tab Tablet, 1 TAB PO BID Prescribed by: ANDREINA KEANE on 03/24/13 1720 Fluconazole (Diflucan 200 Mg Tab) 200 Mg Tablet, 1 EACH PO DAILY Prescribed by: ANDREINA KEANE on 03/24/13 1720 Ondansetron (Zofran Odt) 4 Mg Tab.rapdis, 4 MG PO Q4H Prescribed by: ANDREINA KEANE on 05/16/18 0048 Thyroid,Pork (Nature-Throid) 65 Mg Tablet, (Reported) Entered as Reported by: HENRY ALANIS on 05/15/18 2244 Triamcinolone Acetonide (Triamcinolone Acetonide 0.5% Cream) 0.5 % Cream..g., 1 APPLIC TP BID Prescribed by: BRAYDON PUENTE on 03/08/23 1328 Past Wnhkkdr-Ugtjif-Wgsivw Hx Patient Social History Tobacco Use?: No Substance use?: No Alcohol Use?: No Immunizations Up To Date First/Initial COVID19 Vaccinat: NO Seasonal Allergies Seasonal Allergies: Yes Past Medical History Surgery/Hospitalization HX: HYSTO, SAURABH Surgeries: Yes (HYST/BSO; THUMB SURGERY) Gallbladder, Hysterectomy, Oophorectomy, Orthopedic Respiratory: No Cardiac: No 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 oz. 89.667174qc; 38.00 BMI Method:Stated Progress/Results/Core Measures Results/Orders My Orders Orders - ANNY PEREA MD Humerus, Right, 2 Views (04/19/23 10:30) Hydrocodone/Apap 5/325 Tablet (Hydrocod (04/19/23 12:00) Fentanyl Injection (Fentanyl Injection (04/19/23 12:15) Medications Given in ED Current Medications Medications Dose Ordered Sig/Hector Route Start Time Stop Time Status Last Admin Dose Admin Acetaminophen/ Hydrocodone Bitart 1 ea ONCE ONCE PO 04/19/23 12:00 04/19/23 12:01 DC 04/19/23 12:16 1 EA Fentanyl Citrate 50 mcg ONCE ONCE IM 04/19/23 12:15 04/19/23 12:16 DC 04/19/23 12:17 50 MCG Vital Signs/I&O 04/19/23 04/19/23 04/19/23 10:20 12:16 12:17 Temp 36.6 36.6 36.6 Pulse 62 Resp 20 B/P (MAP) 136/82 (100) Pulse Ox 98 O2 Delivery Room Air Blood Pressure Mean: 100 Departure Impression Primary Impression: Right humeral fracture Qualified Codes: S42.321A - Displaced transverse fracture of shaft of humerus, right arm, initial encounter for closed fracture Additional Impression: Fall on same level from tripping Disposition: 01 HOME, SELF-CARE Condition: Stable Departure-Patient Inst. Decision time for Depature: 13:49 Referrals: NO,LOCAL PHYSICIAN (PCP) Primary Care Physician CLAUDIO MIRELES MD Patient Instructions: Caring for your splint, Upper Arm Fracture Add. Discharge Instructions: Follow-up with Dr. Mireles or the orthopedic provider of your choice is soon as possible. Please call today for an appointment. Dr. Mireles's contact information is below. Use hydrocodone as prescribed for pain. You may use Tylenol (acetaminophen) for more minor pain. Hydrocodone contains acetaminophen. Do not use more than a total of 1000 mg of acetaminophen every 6 hours including the acetaminophen contained in your hydrocodone. Hydrocodone may cause constipation. You may wish to use a stool softener such as Colace while on hydrocodone. Hydrocodone may also cause drowsiness. Do not drive, operate machinery, or make important decisions while taking hydrocodone. You may ice your arm in 20-minute intervals if you can do so without getting the splint wet. Keep the splint and the sling as much as possible. Keep the splint dry. Do not get the splint wet when showering or bathing. If you need your splint adjusted or removed, you may return to the emergency room or contact Dr. Mireles is office to make these adjustments or changes. Return to the ER if you have any worsening of symptoms despite following these instructions. All discharge instructions reviewed with patient and/or family. Voiced underst anding. Scripts Docusate Sodium (Colace) 100 Mg Capsule 100 MG PO DAILY PRN for CONSTIPATION, #30 CAP Prov: ANNY PEREA MD 04/19/23 Hydrocodone/Acetaminophen (Hydrocodone-Acetamin 5-325 mg) 5 Mg-325 Mg Tablet 1 TAB PO Q4H PRN for PAIN-MODERATE (5-7), #20 TAB May use to prevent constipation with hydrocodone use. Prov: ANNY PEREA MD 04/19/23 ANNY PEREA MD Apr 19, 2023 11:08
[2023-04-19] MEDS ORDERED: HYDROcodone/ACETAMINOPHEN 5 MG/325 MG TABLET PO ONE (12:00)
[2023-04-19] MEDS ORDERED: fentaNYL INJECTION 100 MCG/2 ML VIAL IM ONE (12:15)
[2023-04-19] MEDS ORDERED: DOCU-143 PO (13:53)
[2023-04-19] MEDS ORDERED: ACHD5005 PO (13:53)
[2023-04-19 14:12] VITALS: BP 136/82
== END 2023-04-19 14:12 | disposition home or self-care (01) ==
LOC: EDUNIT# 10:18 → ER 10:19
DX: S42.341A Displaced spiral fracture of shaft of humerus, right arm, initial encounter for closed fracture (principal); E66.9 Obesity, unspecified; Z68.38 Body mass index [BMI] 38.0-38.9, adult; Z28.310 Unvaccinated for COVID-19; Z88.5 Allergy status to narcotic agent; W01.0XXA Fall on same level from slipping, tripping and stumbling without subsequent striking against object, initial encounter; Y92.096 Garden or yard of other non-institutional residence as the place of occurrence of the external cause
CPT/HCPCS: 29105; 73060

== ENCOUNTER → 2023-04-27 | Outpatient (CLI) | payer MEDICARE, OTHER ==
[~2023-04-27] MED LIST changes: +ACHD5005 PO; +DOCU-143 PO
--- NOTE | 2023-04-27 16:57 | Diagnostic Imaging Report ---
EXAMINATION: Right hand 3 views. HISTORY: Fracture of the humerus, hand injury. COMPARISON: None available. 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 No acute fracture seen. Alignment is normal. There is a chronic appearing ulnar styloid process fracture. IMPRESSION: No acute fracture is seen in the right hand. Dictated by: Dictated on workstation # [id number]
== END ==
LOC: RAD 11:09
PROVIDERS: ATTEND Nurse Practitioner Family
DX: S42.341D Displaced spiral fracture of shaft of humerus, right arm, subsequent encounter for fracture with routine healing (principal); X58.XXXD Exposure to other specified factors, subsequent encounter
CPT/HCPCS: 73130

== ENCOUNTER 2023-05-02 13:45 | Observation (INO) | payer MEDICARE, OTHER ==
[~2023-05-02] VITALS: Ht 152 cm; Wt 110.0 kg
--- NOTE | 2023-05-02 14:41 | ED General ---
General Chief Complaint: Upper Extremity Stated Complaint: RT ARM INJ | FALL Nursing Triage Note: FX THAT HAS ALREADY BEEN EVALUATED NO NEW INJURY Source of Information: Patient Exam Limitations: No Limitations History of Present Illness Date Seen by Provider: May 02, 2023 Time Seen by Provider: 14:15 Initial Comments Here with complaint of significant right upper arm pain and swelling of her arm and bruising. She had a fall and has known spiral fracture of the mid humerus on the right. She was in a sling and that was very effective early on and then saw Dr. Maya who placed her in an upper arm splinting device. That keeps falling down her arm and then its catching and scraping and turning her quite a bit and she has a fair amount of bruising to her arm and flank now. She is having difficulty in maneuvering in her house because of pain and difficulty with pulling herself up. Not doing well at home because of this and is here for further evaluation. Denies fever, chills, nausea, vomiting, diarrhea or chest pain or breathing problems. Timing/Duration: 1 Week, Getting Worse Severity: Moderate Associated Systoms: No Chest Pain, No Cough, No Fever/Chills, No Nausea/Vomiting, No Shortness of Air, No Weakness Allergies and Home Medications Allergies Coded Allergies: diphenhydramine HCl (Unverified Adverse Reaction, Mild, HYPERACTIVITY, 04/15/11) morphine (Verified Adverse Reaction, Unknown, HEADACHE, 03/08/23) Patient Home Medication List Home Medication List Reviewed: Yes Acetaminophen (Tylenol) 500 Mg Tablet, 500 MG PO PRN, (Reported) Entered as Reported by: MARTINEZ JANG on 03/24/13 1515 Amoxicillin/Clavulanate K (Augmentin 875-125 Tablet) 1 Tab Tablet, 1 TAB PO BID Prescribed by: ANDREINA KEANE on 03/24/13 1720 Docusate Sodium (Colace) 100 Mg Capsule, 100 MG PO DAILY PRN for CONSTIPATION Prescribed by: ANNY GARNETT on 04/19/23 1353 Fluconazole (Diflucan 200 Mg Tab) 200 Mg Tablet, 1 EACH PO DAILY Prescribed by: ANDREINA KEANE on 03/24/13 1720 Hydrocodone/Acetaminophen (Hydrocodone-Acetamin 5-325 mg) 5 Mg-325 Mg Tablet, 1 TAB PO Q4H PRN for PAIN-MODERATE (5-7) Prescribed by: ANNY GARNETT on 04/19/23 1354 Ondansetron (Zofran Odt) 4 Mg Tab.rapdis, 4 MG PO Q4H Prescribed by: ANDREINA KEANE on 05/16/18 0048 Thyroid,Pork (Nature-Throid) 65 Mg Tablet, (Reported) Entered as Reported by: HENRY ALANIS on 05/15/18 2244 Triamcinolone Acetonide (Triamcinolone Acetonide 0.5% Cream) 0.5 % Cream..g., 1 APPLIC TP BID Prescribed by: BRAYDON PUENTE on 03/08/23 1328 Review of Systems Review of Systems Constitutional: No chills, No fever EENTM: no symptoms reported Respiratory: No cough, No short of breath Cardiovascular: No chest pain; edema (Right upper extremity) Gastrointestinal: No nausea, No vomiting Musculoskeletal: No back pain; joint pain, muscle pain Skin: change in color; No lesions Past Zufkvmf-Bgavvo-Frtttq Hx Patient Social History Tobacco Use?: No Use of E-Cig and/or Vaping dev: No Substance use?: No Alcohol Use?: No Pt feels they are or have been: No Immunizations Up To Date First/Initial COVID19 Vaccinat: NO Second COVID19 Vaccination Harjit: NO Third COVID19 Vaccination Date: NO Seasonal Allergies Seasonal Allergies: Yes Past Medical History Surgery/Hospitalization HX: HYSTO, SAURABH Surgeries: Yes (HYST/BSO; THUMB SURGERY) Gallbladder, Hysterectomy, Oophorectomy, Orthopedic Respiratory: No Cardiac: No Neurological: No 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 oz. 89.047006vv; 45.00 BMI Method:Stated General Appearance: No Apparent Distress, WD/WN Neck: Non Tender, Supple Respiratory: Lungs Clear, Normal Breath Sounds Cardiovascular: Regular Rate, Rhythm, No Murmur Gastrointestinal: Non Tender, Soft Extremity: Swelling, Other (Pain to the right upper extremity) Neurologic/Psychiatric: Alert, Oriented x3 Skin: Warm/Dry, Ecchymosis (Right upper extremity from shoulder to fingertips as well as right flank) Progress/Results/Core Measures Suspected Sepsis SIRS Temperature: Pulse: 78 Respiratory Rate: 16 Laboratory Tests 05/02/23 14:37: White Blood Count 7.3 Blood Pressure / Mean: Laboratory Tests 05/02/23 14:37: Creatinine 0.87, Platelet Count 178, Total Bilirubin 1.2H Results/Orders Lab Results Laboratory Tests Test 05/02/23 14:37 Range/Units White Blood Count 7.3 4.3-11.0 10^3/uL Red Blood Count 4.31 3.80-5.11 10^6/uL Hemoglobin 12.7 11.5-16.0 g/dL Hematocrit 39 35-52 % Mean Corpuscular Volume 90 80-99 fL Mean Corpuscular Hemoglobin 30 25-34 pg Mean Corpuscular Hemoglobin Concent 33 32-36 g/dL Red Cell Distribution Width 14.6 H 10.0-14.5 % Platelet Count 178 130-400 10^3/uL Mean Platelet Volume 8.9 L 9.0-12.2 fL Immature Granulocyte % (Auto) 1 % Neutrophils (%) (Auto) 80 H 42-75 % Lymphocytes (%) (Auto) 13 12-44 % Monocytes (%) (Auto) 6 0-12 % Eosinophils (%) (Auto) 1 0-10 % Basophils (%) (Auto) 0 0-10 % Neutrophils # (Auto) 5.8 1.8-7.8 X 10^3 Lymphocytes # (Auto) 0.9 L 1.0-4.0 X 10^3 Monocytes # (Auto) 0.4 0.0-1.0 X 10^3 Eosinophils # (Auto) 0.1 0.0-0.3 10^3/uL Basophils # (Auto) 0.0 0.0-0.1 10^3/uL Immature Granulocyte # (Auto) 0.1 0.0-0.1 10^3/uL Sodium Level 137 135-145 MMOL/L Potassium Level 3.7 3.6-5.0 MMOL/L Chloride Level 106 98-107 MMOL/L Carbon Dioxide Level 20 L 21-32 MMOL/L Anion Gap 11 5-14 MMOL/L Blood Urea Nitrogen 19 H 7-18 MG/DL Creatinine 0.87 0.60-1.30 MG/DL Estimat Glomerular Filtration Rate 67 BUN/Creatinine Ratio 22 Glucose Level 88 70-105 MG/DL Calcium Level 8.7 8.5-10.1 MG/DL Corrected Calcium 9.1 8.5-10.1 MG/DL Total Bilirubin 1.2 H 0.1-1.0 MG/DL Aspartate Amino Transf (AST/SGOT) 43 H 5-34 U/L Alanine Aminotransferase (ALT/SGPT) 38 0-55 U/L Alkaline Phosphatase 161 H 40-136 U/L Total Protein 6.3 L 6.4-8.2 GM/DL Albumin 3.5 3.2-4.5 GM/DL My Orders Orders - CATHIE WEBSTER MD Cbc With Automated Diff (05/02/23 14:31) Comprehensive Metabolic Panel (05/02/23 14:31) Vital Signs/I&O 05/02/23 13:56 Temp 37.0 Pulse 78 Resp 16 B/P (MAP) Pulse Ox 100 Capillary Refill : Less Than 3 Seconds Progress Note : Progress Note Seen and evaluated. I did review x-ray from previous visit for right humerus and do note fracture. She had outpatient x-rays of her right hand and I did review those and do not see any signs of obvious fracture on my interpretation and radiology report indicates the same. I do not have admitting criteria but patient may benefit from inpatient rehab as she is having difficulties with transfers, balance and the ability to ambulate up steps and also with activities of daily living. I did page Dr. Javed. 1429: Dr. Javed has called me back and we did discuss the case to this point and we will evaluate for inpatient rehab. She did asked me to get basic labs including CBC and CMP which were ordered. 1515: I did speak with the inpatient rehab social work and physical therapist who are evaluating the patient now. Labs have returned and CBC is grossly normal and CMP is also grossly normal or close to normal without significant adverse findings. We will see if she qualifies for inpatient rehab. Patient and caregiver very appreciative. Monitor patient. 1530: Dr. Javed has agreed to admit the patient observation status with further evaluation for inpatient rehab after orthopedic consult tomorrow. Discussed with patient and family who agree. Patient request full code. Admission orders to be written by Dr. Solis. Patient to be on MedSurg and observation status. Departure Communication (Admissions) Time/Spoke to Admitting Phy: 15:30 Impression Primary Impression: Right humeral fracture Qualified Codes: S42.341G - Displaced spiral fracture of shaft of humerus, right arm, subsequent encounter for fracture with delayed healing Additional Impression: Intractable pain Disposition: ADMITTED INPATIENT Condition: Stable Admissions Decision to Admit Reason: Admit from ER (General) Decision to Admit/Date: May 02, 2023 Time/Decision to Admit Time: 15:30 Departure-Patient Inst. Referrals: EMERITA FARRIS DNP (PCP/Family) Primary Care Physician CATHIE WEBSTER MD May 02, 2023 14:41
[2023-05-02 14:45] LABS: BASOPHILS % (AUTO) 0 % (0-10); EOSINOPHILS # (AUTO) 0.1 10^3/uL (0.0-0.3); EOSINOPHILS % (AUTO) 1 % (0-10); HEMATOCRIT 39 % (35-52); HEMOGLOBIN 12.7 g/dL (11.5-16.0); LYMPHOCYTES # (AUTO) 0.9 X 10^3 (1.0-4.0); LYMPHOCYTES % (AUTO) 13 % (12-44); MEAN CORPUSCULAR HEMOGLOBIN 30 pg (25-34); MEAN CORPUSCULAR HGB CONC 33 g/dL (32-36); MEAN CORPUSCULAR VOLUME 90 fL (80-99); MEAN PLATELET VOLUME 8.9 fL (9.0-12.2); MONOCYTES # (AUTO) 0.4 X 10^3 (0.0-1.0); MONOCYTES % (AUTO) 6 % (0-12); NEUTROPHILS # (AUTO) 5.8 X 10^3 (1.8-7.8); NEUTROPHILS % (AUTO) 80 % (42-75); PLATELET COUNT 178 10^3/uL (130-400); WHITE BLOOD COUNT 7.3 10^3/uL (4.3-11.0)
[2023-05-02 14:52] LABS: ALBUMIN 3.5 GM/DL (3.2-4.5)
[2023-05-02 14:53] LABS: POTASSIUM 3.7 MMOL/L (3.6-5.0)
[2023-05-02 14:54] LABS: CALCIUM 8.7 MG/DL (8.5-10.1)
[2023-05-02 14:55] LABS: TOTAL PROTEIN 6.3 GM/DL (6.4-8.2)
[2023-05-02 14:57] LABS: BILIRUBIN,TOTAL 1.2 MG/DL (0.1-1.0)
[2023-05-02 14:59] LABS: CREATININE SERUM 0.87 MG/DL (0.60-1.30)
[2023-05-02] MEDS ORDERED: CALCIUM CARBONATE 500 MG CHEW TABLET PO PRN (17:45)
[2023-05-02] MEDS ORDERED: ONDANSETRON 4 MG ORAL DISSOLVE TABLET PO PRN (17:45)
[2023-05-02] MEDS ORDERED: diphenhydrAMINE 25 MG TABLET PO PRN (17:45)
[2023-05-02] MEDS ORDERED: MELATONIN 3 MG TABLET PO PRN (17:45)
[2023-05-02] MEDS ORDERED: LACTULOSE SYRUP 10GM/15ML 30ML UDC PO PRN (17:45)
[2023-05-02] MEDS ORDERED: BISACODYL 10 MG SUPPOSITORY PR PRN (17:45)
[2023-05-02] MEDS ORDERED: ANTACID SUSPENSION 30 ML UDC PO PRN (17:45)
[2023-05-02] MEDS ORDERED: MILK OF MAGNESIA 400 MG/5 ML 30 ML UDC PO PRN (17:45)
[2023-05-02] MEDS ORDERED: oxyCODONE IMMEDIATE RELEASE 5 MG TABLET PO PRN (17:45)
[2023-05-02] MEDS ORDERED: ONDANSETRON INJECTION 4 MG/2 ML (SDV) IV PRN (17:45)
[2023-05-02] MEDS ORDERED: ACETAMINOPHEN 325 MG TABLET PO PRN (17:45)
[2023-05-02] MEDS ORDERED: HYDROmorphone INJECTION 2 MG/ML VIAL IV PRN (17:45)
[2023-05-02] MEDS ORDERED: diphenhydrAMINE INJ 50 MG/ML VIAL IVP PRN (17:45)
[2023-05-02] MEDS: SENNOSIDES 8.6 MG TABLET PO SCH (19:52)
[2023-05-02] MEDS: DOCUSATE SODIUM 100 MG CAPSULE PO SCH (19:52)
[2023-05-02 20:30] VITALS: BP 155/66
[2023-05-02 23:50] VITALS: BP 123/73
[2023-05-03 03:48] VITALS: BP 117/73
[2023-05-03 06:13] LABS: BASOPHILS % (AUTO) 0 % (0-10); EOSINOPHILS # (AUTO) 0.1 10^3/uL (0.0-0.3); EOSINOPHILS % (AUTO) 2 % (0-10); HEMATOCRIT 39 % (35-52); HEMOGLOBIN 12.6 g/dL (11.5-16.0); LYMPHOCYTES % (AUTO) 16 % (12-44); MEAN CORPUSCULAR HEMOGLOBIN 30 pg (25-34); MEAN CORPUSCULAR HGB CONC 33 g/dL (32-36); MEAN CORPUSCULAR VOLUME 90 fL (80-99); MEAN PLATELET VOLUME 9.2 fL (9.0-12.2); MONOCYTES # (AUTO) 0.5 10^3/uL (0.0-1.0); MONOCYTES % (AUTO) 7 % (0-12); NEUTROPHILS # (AUTO) 4.6 10^3/uL (1.8-7.8); NEUTROPHILS % (AUTO) 74 % (42-75); PLATELET COUNT 162 10^3/uL (130-400); WHITE BLOOD COUNT 6.2 10^3/uL (4.3-11.0)
[2023-05-03 06:23] LABS: ALBUMIN 3.2 GM/DL (3.2-4.5); POTASSIUM 3.9 MMOL/L (3.6-5.0)
[2023-05-03 06:24] LABS: CALCIUM 8.7 MG/DL (8.5-10.1)
[2023-05-03 06:26] LABS: TOTAL PROTEIN 5.9 GM/DL (6.4-8.2)
[2023-05-03 06:27] LABS: BILIRUBIN,TOTAL 1.1 MG/DL (0.1-1.0)
[2023-05-03 06:29] LABS: CREATININE SERUM 0.79 MG/DL (0.60-1.30)
[2023-05-03 07:51] VITALS: BP 116/57
--- NOTE | 2023-05-03 08:48 | Diagnostic Imaging Report ---
INDICATION: Right humerus fracture, follow-up TECHNIQUE: 2 views of the right humerus 6:28 AM CORRELATION STUDY: 04/19/2023 FINDINGS: Spiral fracture mid humeral diaphysis again demonstrated. There is medial displacement of the distal fracture fragment approximately the width of the bone. Slight retraction. The visualized portion of the shoulder and elbow unremarkable. Soft tissue swelling over the humerus. IMPRESSION: 1. Mildly displaced mid diaphyseal fracture right humerus. Dictated by: Dictated on workstation # [id number]
[2023-05-03] MEDS: DOCUSATE SODIUM 100 MG CAPSULE PO SCH (09:20)
[2023-05-03] MEDS: SENNOSIDES 8.6 MG TABLET PO SCH (09:20)
[2023-05-03] MEDS ORDERED: ACET-2267 PO (10:07)
--- NOTE | 2023-05-03 10:13 | Short Stay Summary ---
PAULINEGURVINDER 05/03/23 1013: History of Present Illness History of Present Illness Reason for visit/HPI HPI: 82-year-old female with a history of falls presented to the ED with upper right arm pain with bruising and swelling. Patient had a fall and has a known spiral fracture of the right mid humerus. Patient reports that she fell on the and went to the ED where she received a sling and pain medications and was told to follow-up with Dr. Mireles. On patient visit, she is still having pain in her right arm and is unable to move it. There is bruising starting at the mid- upper arm that goes down and engulfs her forearm and hand. She reports that the swelling has gone down, but there was still some swelling around the knuckles. Radial pulse was +2 on the right arm. Did receive an xray yesterday, which confirms spiral fracture of right mid humerus. Patient is alert & oriented x3. She is a very sabianism person and will talk you're ear off if you let her. Date of Admission May 02, 2023 at 16:30 Date of Discharge 05/03/23 Time Seen by Provider: 08:00 Attending Physician Kyung Britton,Sen Admitting Physician Admitting Physician: Diane Vega DO Attending Physician: Diane Vega DO Consult Allergies and Home Medications Allergies Coded Allergies: diphenhydramine HCl (Unverified Adverse Reaction, Mild, HYPERACTIVITY, 04/15/11) morphine (Verified Adverse Reaction, Unknown, HEADACHE, 03/08/23) Patient Home Medication List Home Medication List Reviewed: Yes Acetaminophen (Tylenol Extra Strength) 500 Mg Tablet, 1,000 MG PO Q8H PRN for PAIN-MILD (1-4), (Reported) Entered as Reported by: JANIS RUBIN on 05/03/23 1007 Last Action: Reviewed Discontinued Medications Acetaminophen (Tylenol) 500 Mg Tablet, 500 MG PO PRN, (Reported) Discontinued Reason: No Longer Taking Entered as Reported by: MARTINEZ JANG on 03/24/13 1515 Last Action: Discontinued Amoxicillin/Clavulanate K (Augmentin 875-125 Tablet) 1 Tab Tablet, 1 TAB PO BID Prescribed by: ANDREINA KEANE on 03/24/13 1720 Last Action: Discontinued Docusate Sodium (Colace) 100 Mg Capsule, 100 MG PO DAILY PRN for CONSTIPATION Discontinued Reason: No Longer Taking Prescribed by: ANNY GARNETT on 04/19/23 1353 Last Action: Discontinued Fluconazole (Diflucan 200 Mg Tab) 200 Mg Tablet, 1 EACH PO DAILY Prescribed by: ANDREINA KEANE on 03/24/13 1720 Last Action: Discontinued Hydrocodone/Acetaminophen (Hydrocodone-Acetamin 5-325 mg) 5 Mg-325 Mg Tablet, 1 TAB PO Q4H PRN for PAIN-MODERATE (5-7) Prescribed by: ANNY GARNETT on 04/19/23 1354 Last Action: Discontinued Ondansetron (Zofran Odt) 4 Mg Tab.rapdis, 4 MG PO Q4H Prescribed by: ANDREINA KEANE on 05/16/18 0048 Last Action: Discontinued Thyroid,Pork (Nature-Throid) 65 Mg Tablet, (Reported) Discontinued Reason: No Longer Taking Entered as Reported by: HENRY ALANIS on 05/15/18 2244 Last Action: Discontinued Triamcinolone Acetonide (Triamcinolone Acetonide 0.5% Cream) 0.5 % Cream..g., 1 APPLIC TP BID Prescribed by: BRAYDON PUENTE on 03/08/23 1328 Last Action: Discontinued Past Tnzblyl-Xsfyuy-Evfcfg Hx Patient Social History Marrital Status: Smoking Status: Never a Smoker Alcohol Use?: No Pt feels they are or have been: No Seasonal Allergies Seasonal Allergies: Yes Surgeries Yes (HYST/BSO; THUMB SURGERY) Gallbladder, Hysterectomy, Oophorectomy, Orthopedic Respiratory No Cardiovascular No Neurological 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, 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 Genitourinary No Gastrointestinal Yes Abdominal Hernia, Gastroesophageal Reflux, Hiatal Hernia Musculoskeletal Yes Gout Endocrine History of Endocrine Disorders: Yes (OBESITY) Cancer No Psychosocial History of Psychiatric Problem: Yes Behavioral Health Disorders: Anxiety, Depression Integumentary History of Skin or Integumenta: No Blood Transfusions History of Blood Disorders: No Adverse Reaction to a Blood Tr: No Review of Systems Constitutional: no symptoms reported EENTM: no symptoms reported Respiratory: no symptoms reported Cardiovascular: no symptoms reported Gastrointestinal: no symptoms reported Genitourinary: no symptoms reported Musculoskeletal: see HPI Skin: other (Bruising on right arm) Psychiatric/Neurological: No Symptoms Reported Physical Exam Vital Signs Vital Signs - First Documented 05/02/23 05/02/23 05/02/23 05/02/23 13:56 17:16 18:17 18:21 Temp 37.0 Pulse 78 Resp 16 B/P (MAP) 122/70 Pulse Ox 100 O2 Delivery Room Air FiO2 21 Capillary Refill : Less Than 3 Seconds Height, Weight, BMI Height: 5'0" Weight: 197lbs. oz. 89.393691xn; 47.61 BMI Method:Stated General Appearance: No Apparent Distress, WD/WN, Obese Eyes: Bilateral Eye Normal Inspection, Bilateral Eye PERRL, Bilateral Eye EOMI HEENT: PERRL/EOMI, Normal ENT Inspection, Pharynx Normal, Moist Mucous Membranes Respiratory: Chest Non Tender, Lungs Clear, Normal Breath Sounds, No Accessory Muscle Use, No Respiratory Distress Cardiovascular: Regular Rate, Rhythm, No Edema, No Gallop, No JVD, No Murmur, Normal Peripheral Pulses Extremity: Normal Capillary Refill, Swelling (Right arm, especially at the hand) Neurologic/Psychiatric: Alert, Oriented x3, Normal Mood/Affect Skin: Normal Color, Warm/Dry, Ecchymosis (Right arm) Lymphatic: No Adenopathy Clinical Quality Measures DVT/VTE Risk/Contraindication: Contraindications-Pharm: Other *list below* Other: possible surgery Short Stay Diagnosis Discharge Diagnosis-Short Stay Final Discharge Diagnosis: Debility, spiral fracture of right mid humerus Conclusion Labs Laboratory Tests 05/02/23 14:37: White Blood Count 7.3, Red Blood Count 4.31, Hemoglobin 12.7, Hematocrit 39, Mean Corpuscular Volume 90, Mean Corpuscular Hemoglobin 30, Mean Corpuscular Hemoglobin Concent 33, Red Cell Distribution Width 14.6H, Platelet Count 178, Mean Platelet Volume 8.9L, Immature Granulocyte % (Auto) 1, Neutrophils (%) (Auto) 80H, Lymphocytes (%) (Auto) 13, Monocytes (%) (Auto) 6, Eosinophils (%) (Auto) 1, Basophils (%) (Auto) 0, Neutrophils # (Auto) 5.8, Lymphocytes # (Auto) 0.9L, Monocytes # (Auto) 0.4, Eosinophils # (Auto) 0.1, Basophils # (Auto) 0.0, Immature Granulocyte # (Auto) 0.1, Sodium Level 137, Potassium Level 3.7, Chloride Level 106, Carbon Dioxide Level 20L, Anion Gap 11, Blood Urea Nitrogen 19H, Creatinine 0.87, Estimat Glomerular Filtration Rate 67, BUN/Creatinine Ratio 22, Glucose Level 88, Calcium Level 8.7, Corrected Calcium 9.1, Total Bilirubin 1.2H, Aspartate Amino Transf (AST/SGOT) 43H, Alanine Aminotransferase (ALT/SGPT) 38, Alkaline Phosphatase 161H, Total Protein 6.3L, Albumin 3.5 05/03/23 05:34: White Blood Count 6.2, Red Blood Count 4.27, Hemoglobin 12.6, Hematocrit 39, Mean Corpuscular Volume 90, Mean Corpuscular Hemoglobin 30, Mean Corpuscular Hemoglobin Concent 33, Red Cell Distribution Width 14.6H, Platelet Count 162, Mean Platelet Volume 9.2, Immature Granulocyte % (Auto) 1, Neutrophils (%) (Auto) 74, Lymphocytes (%) (Auto) 16, Monocytes (%) (Auto) 7, Eosinophils (%) (Auto) 2, Basophils (%) (Auto) 0, Neutrophils # (Auto) 4.6, Lymphocytes # (Auto) 1.0, Monocytes # (Auto) 0.5, Eosinophils # (Auto) 0.1, Basophils # (Auto) 0.0, Immature Granulocyte # (Auto) 0.1, Sodium Level 141, Potassium Level 3.9, Chloride Level 109H, Carbon Dioxide Level 25, Anion Gap 7, Blood Urea Nitrogen 16, Creatinine 0.79, Estimat Glomerular Filtration Rate 75, BUN/Creatinine Ratio 20, Glucose Level 85, Calcium Level 8.7, Corrected Calcium 9.3, Total Bilirubin 1.1H, Aspartate Amino Transf (AST/SGOT) 35H, Alanine Aminotransferase (ALT/SGPT) 33, Alkaline Phosphatase 153H, Total Protein 5.9L, Albumin 3.2 Conclusion/Plan Admit to rehab, ambulate DIANE VEGA DO 05/03/232006: History of Present Illness History of Present Illness Reason for visit/HPI CC: Right arm pain due to humerus fracture HPI: This is an 82yoWF clinic patient of Kyung Britton who has essentially no PMH who presents to 4th floor s/p observation in need of rehab admit due to right arm fracture and unable to manage at home. Date of Admission 05/02/23 Date of Discharge 05/03/23 Time Seen by Provider: 11:00 Allergies and Home Medications Allergies Coded Allergies: diphenhydramine HCl (Unverified Adverse Reaction, Mild, HYPERACTIVITY, 04/15/11) morphine (Verified Adverse Reaction, Unknown, HEADACHE, 03/08/23) Patient Home Medication List Acetaminophen (Tylenol Extra Strength) 500 Mg Tablet, 1,000 MG PO Q8H PRN for PAIN-MILD (1-4), (Reported) Entered as Reported by: JANIS RUBIN on 05/03/23 1007 Last Action: Reviewed Discontinued Medications Acetaminophen (Tylenol) 500 Mg Tablet, 500 MG PO PRN, (Reported) Discontinued Reason: No Longer Taking Entered as Reported by: MARTINEZ JANG on 03/24/13 1515 Last Action: Discontinued Amoxicillin/Clavulanate K (Augmentin 875-125 Tablet) 1 Tab Tablet, 1 TAB PO BID Prescribed by: ANDREINA KEANE on 03/24/13 1720 Last Action: Discontinued Docusate Sodium (Colace) 100 Mg Capsule, 100 MG PO DAILY PRN for CONSTIPATION Discontinued Reason: No Longer Taking Prescribed by: ANNY GARNETT on 04/19/23 1353 Last Action: Discontinued Fluconazole (Diflucan 200 Mg Tab) 200 Mg Tablet, 1 EACH PO DAILY Prescribed by: ANDREINA KEANE on 03/24/13 1720 Last Action: Discontinued Hydrocodone/Acetaminophen (Hydrocodone-Acetamin 5-325 mg) 5 Mg-325 Mg Tablet, 1 TAB PO Q4H PRN for PAIN-MODERATE (5-7) Prescribed by: ANNY GARNETT on 04/19/23 1354 Last Action: Discontinued Ondansetron (Zofran Odt) 4 Mg Tab.rapdis, 4 MG PO Q4H Prescribed by: ANDREINA KEANE on 05/16/18 0048 Last Action: Discontinued Thyroid,Pork (Nature-Throid) 65 Mg Tablet, (Reported) Discontinued Reason: No Longer Taking Entered as Reported by: HENRY ALANIS on 05/15/18 2244 Last Action: Discontinued Triamcinolone Acetonide (Triamcinolone Acetonide 0.5% Cream) 0.5 % Cream..g., 1 APPLIC TP BID Prescribed by: BRAYDON PUENTE on 03/08/23 1328 Last Action: Discontinued Past Ipdwtro-Nvidwx-Lprjmy Hx Patient Social History Marrital Status: single Employed/Student: retired Smoking Status: Never a Smoker Review of Systems Constitutional: see HPI Musculoskeletal: joint pain Physical Exam General Appearance: No Apparent Distress, WD/WN, Obese Eyes: Bilateral Eye Normal Inspection, Bilateral Eye PERRL, Bilateral Eye EOMI HEENT: PERRL/EOMI, Normal ENT Inspection, Pharynx Normal Neck: Full Range of Motion, Normal Inspection, Non Tender, Supple, Carotid Bruit Respiratory: Chest Non Tender, Lungs Clear, Normal Breath Sounds, No Accessory Muscle Use, No Respiratory Distress Cardiovascular: Regular Rate, Rhythm, No Edema, No Gallop, No JVD, No Murmur, Normal Peripheral Pulses Gastrointestinal: Normal Bowel Sounds, No Organomegaly, No Pulsatile Mass, Non Tender, Soft Back: Normal Inspection, No CVA Tenderness, No Vertebral Tenderness Extremity: Normal Capillary Refill, Normal Inspection, Normal Range of Motion (except right arm), Non Tender, No Calf Tenderness, No Pedal Edema Neurologic/Psychiatric: Alert, Oriented x3, No Motor/Sensory Deficits, Normal Mood/Affect Skin: Normal Color, Warm/Dry Lymphatic: No Adenopathy Short Stay Diagnosis Discharge Diagnosis-Short Stay Admission Diagnosis: Right humerus fracture proximal subacute Final Discharge Diagnosis: Right humerus fracture proximal subacute Conclusion Conclusion/Plan ARU Supervisory-Addendum Brief Verification & Attestation Participated in pt care: history, MDM, physical Personally performed: exam, history, MDM, supervision of care Care discussed with: Medical Student Procedures: n/a Results interpretation: Verified all documentation Verification and Attestation of Medical Student E/M Service A medical student performed and documented this service in my presence. I r eviewed and verified all information documented by the medical student and made modifications to such information, when appropriate. I personally performed the physical exam and medical decision making. Diane Vega May 03, 2023,20:04 GURVINDER CARPENTER May 03, 2023 10:13 DIANE VEGA DO May 03, 2023 20:07
--- NOTE | 2023-05-03 10:16 | Occupational Therapy Eval ---
OT Evaluation-General/PLF Medical Diagnosis Admission Date May 02, 2023 at 16:30 Medical Diagnosis: pain, debility Onset Date: May 02, 2023 Therapy Diagnosis Therapy Diagnosis: s/p fall w/ RUE hurerus fx Height/Weight Height (Feet): 5 Height (Inches): 0 Weight (Pounds): 197 Precautions Precautions/Isolations: Fall Prevention, Standard Precautions Safety Interventions: Bed Exit Alarm Weight Bear Status Weight Bearing Restriction: Weight Bearing/Tolerated, Non Weight Bearing WBS (Ord/Comment): This OT EVAL/TREAT w/ NWB RUE, order per Shima is WBAT, see ortho consult Referral Physician: SILVIA Referral Reason: Activity Tolerance, Self Care, Evaluation/Treatment, Strengthening/ROM Medical History Additional Medical History Here with complaint of significant right upper arm pain and swelling of her arm and significant bruising/blood pooling and distal edema. She had a fall 04/19/23 outside in yard and has known spiral fracture of the mid humerus on the right. She was in a sling and that was very effective early on and then saw Dr. Maya who placed her in an upper arm splinting device. That keeps falling down her arm and then its catching and scraping and turning her quite a bit and she has a fair amount of bruising to her arm and flank now. She is having difficulty in maneuvering in her house because of pain and difficulty with pulling herself up. Not doing well at home because of this and is here for further evaluation. Patient reports to this therapist additional falls prior to APR 19 Current History Patient is very particular in materails against her skin and position of comfort. Merrill wrap in sling folded specific to patient instruction and placed between RUE and edge of sling in axilla Reviewed History: Yes Social History Home: Single Level Current Living Status: Alone Unable to complete full interview, patient is talkative and prays over therapist 3 times during session ADL-Prior Level of Function SCALE: Activities may be completed with or without assistive devices. 1-Swlpzwdukk-kzmzdtr completes the activity by him/herself with no assistance from a helper. 5-Set-up or Clean-up Assistance-helper sets up or cleans up; patient completes activity. [place] assists only prior to or following the activity. 4-Supervision or Touching Assistance-helper provides verbal cues and/or touching/steadying and/or contact guard assistance as patient completes activity. Assistance may be provided throughout the activity or intermittently. 3-Partial/Moderate Assistance-helper does LESS THAN HALF the effort. [place] lifts, holds or supports trunk or limbs, but provides less than half the effort. 2-Substantial/Maximal Assistance-helper does MORE THAN HALF the effort. [place] lifts or holds trunk or limbs and provides more than half the effort. 3-Gstcxaymz-bhpumv does ALL the effort. Patient does none of the effort to complete the activity. Or, the assistance of 2 or more helpers is required for the patient to complete the activity. If activity was not attempted, code reason: 7-Patient Refused. 9-Not Applicable-not attempted and the patient did not perform the activity before the current illness, exacerbation or injury. 10-Not Attempted due to Environmental Limitations-(lack of equipment, weather restraints, etc.). 88-Not Attempted due to Medical Conditions or Safety Concerns. Self Care: Independent Functional Cognition: Independent DME/Equipment Comments Patient owns cane however does not use, patient reports she holds, doors, fra mes, rivero and furniture in house OT Current Status Subjective Very congregation and spiritually mindset, enjoys communicating w/ people Pain Numeric Pain Scale: 5-Moderate Pain Location: Right Location Body Site: Arm Mental Status/Objective Patient Orientation: Person, Place, Time, Situation Current Glasses/Contacts: Yes Upper Extremity ROM RUE restricted d/t pain and sling use, see ortho for further assessment. LUE W FLS, Joint approximation limited d/t excessive soft tissue. Upper Extremity Strength RUE NT, LUE -4/5 in range. Edema: RUE, positioned w/ sling and pillows ADL-Treatment ADL-Current On arrival patient sitting in recliner upright supported eating breakfast w/ left hand no set up required. Patient declined all LB ADLS with therapist.Stand from recliner mod assit, ambulatin tobathrrom min assist, Patient refused use of her cane and holds doors and sink resisting education and fall reduction strategies of OT. Patient is unable to perfomr LB gamete management and hygiene post toileting. Stands at sink to wash Left hand. Sits in recliner for OT to perform RUE axilla cleansing with threading soap wash clothe, drying performed by OT as well. Patient does wash face w/ clothe when handed supplies in recliner Eating (QC): 6 Oral Hygiene (QC): 5 Shower/Bathe Self (QC): 88 Upper Body Dressing (QC): 1 (patient declined) Lower Body Dressing (QC): 2 (declined performance, does stand for OT assistance to manage garments) On/Off Footwear (QC): 1 Toileting Hygiene (QC): 2 Education OT Patient Education: Correct positioning, Modified ADL techniques, Progress toward Goal/Update tx plan, Purpose of tx/functional activities, Reviewed precautions, Rehab process, Safety issues, Transfer techniques, Use of adapted equipment Teaching Recipient: Patient Teaching Methods: Demonstration, Discussion Response to Teaching: Reinforcement Needed OT Fci Goals Financial Recruiter Goals Time Frame: May 09, 2023 Eating (QC): 6 Oral Hygiene (QC): 6 Toileting Hygiene (QC): 5 Shower/Bathe Self (QC): 3 Upper Body Dressing (QC): 3 Lower Body Dressing (QC): 3 On/Off Footwear (QC): 3 1=Demonstrate adherence to instructed precautions during ADL tasks. 2=Patient will verbalize/demonstrate understanding of assistive devices/modifications for ADL. 3=Patient will improve strength/tolerance for activity to enable patient to p erform ADL's. OT Education/Plan Problem List/Assessment Assessment: Decreased Activ Tolerance, Decreased Safety Aware, Decreased UE Strength, Impaired Bed Mobility, Impaired Coordination, Impaired Funct Balance, Impaired I ADL's, Impaired Self-Care Skills, Restricted Funct UE ROM Discharge Recommendations Plan/Recommendations: Continue POC Therapy Discharge Recommendati: Post Acute OT Equpiment Recommendations-D/C: Hip Kit (Patient reports she owns hygiene tongs) Barriers to Progress Easily distracted w/ conversation, resistance to use ADs with ambulation and increased fall risk Treatment Plan/Plan of Care Treatment,Training & Education: Yes Patient would benefit from OT for education, treatment and training to promote independence in ADL's, mobility, safety and/or upper extremity function for ADL's. Plan of Care: ADL Retraining, Concurrent Therapy, Functional Mobility, Group Exercise/Act as Ind, Orthotic Fitting/Training, UE Funct Exercise/Act, UE Neuromus Re-Ed/Coord Treatment Duration: May 09, 2023 Frequency: 3 times per week (3-5 times per week) Estimated Hrs Per Day: .25 hour per day Agreement: Yes Rehab Potential: Guarded Time Start Time: 08:32 Stop Time: 09:10 DATE: May 03, 2023 Total Time Billed (hr/min): 38 Billed Treatment Time HAN AHMADI 38 min TERRA LEE OT May 03, 2023 10:16
--- NOTE | 2023-05-03 10:34 | Progress Note ---
PAULINEGURVINDER 05/03/23 1034: Progress Note CC: Upper extremity arm pain HPI: 82-year-old female with a history of falls presented to the ED with upper right arm pain with bruising and swelling. Patient had a fall and has a known spiral fracture of the right mid humerus. Patient reports that she fell on the and went to the ED where she received a sling and pain medications and was told to follow-up with Dr. Mireles. On patient visit, she is still having pain in her right arm and is unable to move it. There is bruising starting at the mid- upper arm that goes down and engulfs her forearm and hand. She reports that the swelling has gone down, but there was still some swelling around the knuckles. Radial pulse was +2 on the right arm. Did receive an xray yesterday, which confirms spiral fracture of right mid humerus. Patient is alert & oriented x3. She is a very scientologist person and will talk you're ear off if you let her. PMH: Menopausal, GERD, hiatal hernia, abdominal hernia, obesity, anxiety, depression PSH: Hysterectomy, cholecystectomy, oophorectomy, orthopedic (thumb surgery) ALL: Diphenhydramine HCl, morphine MED: Acetaminophen (1,000 mg PO Q8H PRN), Tumeric (did not know dosage), vitamin D3+K2 (did not know dosage), digestive enzyme (couldn't give any info about it), Gentle move stool softener (no dosage known) SH: No tobacco, no EtOH, no substance use, very scientologist (Confucianism), FH: Mother , father & may have had diabetes. Brother age 90 who is living with diabetes, sister at 86 and had diabetes & dementia. Has multiple other siblings but gave no more information. ROS: No chills, no fever, no changes in vision, no pain with swallowing, no neck pain, no cough, no SOB, no chest pain, edema (right hand), no nausea, no vomiting, joint pain, muscle pain, change in skin color, no lesions Exam: No apparent distress, WD/WN, obesity. Normal inspection on eyes bilaterally, PERRL/EOMI. Pharynx normal & moist mucous membranes. Chest is nontender, RRR with no gallop, no murmur, no JVD. Normal air movement, lungs CTAB, no wheezing or rhonchi. Alert & oriented x3. Normal mood/affect. Right arm is in pain and in a sling. Cannot move the right arm on its own. There is ecchymosis starting at the mid right upper arm that covers the whole forearm & hand. There is swelling of the knuckles and the hand. Radial pulse is +2 bilaterally. Images/Labs: X-ray on 05/03/23 showed mildly displaced mid diaphyseal fracture right humerus. Labs unremarkable. Assessment: Debility, recent fall, spiral fracture of right mid humerus, obesity, history of abdominal surgeries, GERD, anxiety, depression Plan: Admit to rehab, ambulate DIANE VEGA DO 05/03/23 2010: Supervisory-Addendum Brief Verification & Attestation Participated in pt care: history, MDM, physical Personally performed: exam, history, MDM, supervision of care Care discussed with: Medical Student Procedures: n/a Results interpretation: Verified all documentation Verification and Attestation of Medical Student E/M Service A medical student performed and documented this service in my presence. I reviewed and verified all information documented by the medical student and made modifications to such information, when appropriate. I personally performed the physical exam and medical decision making. Diane Vega, May 03, 2023,20:10 GURVINDER CARPENTER May 03, 2023 10:34 DIANE VEGA DO May 03, 2023 20:10
--- NOTE | 2023-05-03 10:59 | Physical Therapy Progress Note ---
Therapy Progress Note Patient transferring to ARU on this date. PT will evaluate patient on that unit. CRIS VENCES PT May 03, 2023 10:59
== END 2023-05-03 11:05 ==
LOC: EDUNIT# 13:45 → ER 13:48 → 4TH 16:30 → UNDOADMOB 16:30 → 4TH 17:35 → UNDODISOB 05-03 11:05
PROVIDERS: ADMIT Internal Medicine; ATTEND Internal Medicine
DX: S42.341A Displaced spiral fracture of shaft of humerus, right arm, initial encounter for closed fracture (principal); R53.81 Other malaise; E66.9 Obesity, unspecified; W19.XXXA Unspecified fall, initial encounter; Z28.310 Unvaccinated for COVID-19
CPT/HCPCS: 73060; 80053 ×2; 85025 ×2; 97167; 97535; 99283; L3650; 36415; G0378

== ENCOUNTER 2023-05-03 10:35 | Inpatient (IN) | payer MEDICARE, OTHER ==
[~2023-05-03] VITALS: Ht 152.4 cm; Wt 110.0 kg
[~2023-05-03 10:35] MED LIST changes: +ACET-2267 PO
[2023-05-03 11:25] VITALS: BP 127/60
--- NOTE | 2023-05-03 13:15 | Occupational Therapy Eval ---
OT Evaluation-General/PLF Medical Diagnosis Admission Date May 03, 2023 at 11:05 Medical Diagnosis: R humerus fx Onset Date: Apr 19, 2023 Therapy Diagnosis Therapy Diagnosis: decreased ADL status, weakness Height/Weight Height (Feet): 5 Height (Inches): 0 Weight (Pounds): 197 Precautions Precautions/Isolations: Fall Prevention, Standard Precautions Comments NWB RUE, sling Weight Bear Status Weight Bearing Restriction: Non Weight Bearing Location Restriction: R UE Referral Physician: Tello Referral Reason: Evaluation/Treatment Medical History Additional Medical History gout, hysto, [place], GERD, anxiety/depression Current History Pt fell on 04/19/23 while doing yard work, fracturing R humerus. Pt returned to ED 05/02/23 due to significant RUE swelling and pain. Social History Home: Multilevel Current Living Status: Alone Pt has a toilet and sink on main level, along with a place to sleep. Her shower, laundry and her regular bedroom are upstairs. She has been unable to go upstairs for at least a couple of months ADL-Prior Level of Function SCALE: Activities may be completed with or without assistive devices. 0-Gxjeprwsva-vmffyoq completes the activity by him/herself with no assistance from a helper. 5-Set-up or Clean-up Assistance-helper sets up or cleans up; patient completes activity. [place] assists only prior to or following the activity. 4-Supervision or Touching Assistance-helper provides verbal cues and/or touching/steadying and/or contact guard assistance as patient completes activity. Assistance may be provided throughout the activity or intermittently. 3-Partial/Moderate Assistance-helper does LESS THAN HALF the effort. [place] lifts, holds or supports trunk or limbs, but provides less than half the effort. 2-Substantial/Maximal Assistance-helper does MORE THAN HALF the effort. [place] lifts or holds trunk or limbs and provides more than half the effort. 4-Stvwiyjps-govuqc does ALL the effort. Patient does none of the effort to complete the activity. Or, the assistance of 2 or more helpers is required for the patient to complete the activity. If activity was not attempted, code reason: 7-Patient Refused. 9-Not Applicable-not attempted and the patient did not perform the activity before the current illness, exacerbation or injury. 10-Not Attempted due to Environmental Limitations-(lack of equipment, weather restraints, etc.). 88-Not Attempted due to Medical Conditions or Safety Concerns. ADL PLOF Comments Pt lives in a multilevel house with laundry, shower and bedroom upstairs. Pt has had increased difficulty going upstairs due to knee pain, and has been unable to go upstairs at all over the last couple of months. Pt has a toilet, sink, and a place to sleep on the main level. Pt has been completing sponge baths for some time due to difficulty getting upstairs. Pt has a "hurrycane" that she uses when see feels like she needs it prior, but she was also able to get around without. Pt has a 5 gallon bucket with a toilet seat on it that she keeps beside her bed and uses of a night due to urgency. Her upstairs shower is a tub/shower combination, no SC Self Care: Independent Functional Cognition: Independent DME/Equipment: Tub/Shower DME/Equipment Comments hurrycane, 5 gallon bucket with toilet lid attached beside bed. OT Current Status Subjective Pt agreeable to OT evaluation. 6/10 pain in R arm. Pt requires frequent redirection to conversation as she tends to be hyperverbal. Mental Status/Objective Patient Orientation: Person, Place, Time, Situation, Normal For Age Attachments: Other-See Comments (RUE Sling.) Current Glasses/Contacts: Yes Hearing Aids: No Dentures/Partials: No Hand Dominance: Right Upper Extremity ROM RUE not tested due to R humerus fx and arm being placed in sling. WFL at wri st/fingers. LUE WFL Upper Extremity Coordination WFL, pt able to oppose b/l thumbs to each finger. Pt reports difficulty writing with R hand, she has had some swelling the last few days and has difficulty due to sling. Upper Extremity Sensation WFL per pt report. Upper Extremity Strength RUE not tested. LUE WFL, decreased strength wrist/hand due to prior injury when pt was 7 y/o ADL-Treatment Eating (QC): 5 (assist with cutting food and opening containers.) Oral Hygiene (QC): 5 Shower/Bathe Self (QC): 3 (Assist with washing/drying abdominal pannus, LUE, BLE feet) Upper Body Dressing (QC): 3 (Assist with threading RUE and managing down trunk) Lower Body Dressing (QC): 4 (SBA, increased time required) On/Off Footwear (QC): 3 (Mod A. Pt able to doff, assist to don gripper socks. ) Toileting Hygiene (QC): 4 (SBA, increased time required with pant hike on R side.) Other Treatments Pt in recliner, agreeable to OT evaluation. Pt provided information about PLOF and home set up and participated in UE Screen. RUE shoulder and elbow not assessed due to R humerus fx. Pt hyperverbal, requiring frequent redirection to conversation. Post tx, pt in recliner, call light in reach and all needs met, pt positioned to comfort. Education OT Patient Education: Correct positioning, Energy conservation, Modified ADL techniques, Progress toward Goal/Update tx plan, Purpose of tx/functional activities, Rehab process Teaching Recipient: Patient Teaching Methods: Discussion Response to Teaching: Verbalize Understanding BIMS CAM BIMS Expression of Ideas and Wants: Without Difficulty Understanding Verbal Content: Understands Brief Interview/Mental Status: Yes IRF DEBRA BIMS: IRF DEBRA BIMS Response (Comments) Value Repitition of Three Words Three 3 Recalls Socks No, Could Not Recall 0 Recalls Blue Yes, No Cue Required 2 Recalls Bed Yes, No Cue Required 2 Year Correct 3 Month Accurate Within 5 Days 2 Day Correct 1 Total 13 Should Staff Asses. Mental St.: No CAM Mental Status Change/Baseline: 0 Inattention: 1 Disorganized thinkin Altered level of consciousness: 0 OT Tree Topper Goals Tree Topper Goals Time Frame: May 27, 2023 Eating (QC): 6 Oral Hygiene (QC): 6 Toileting Hygiene (QC): 6 Shower/Bathe Self (QC): 6 Upper Body Dressing (QC): 6 Lower Body Dressing (QC): 6 On/Off Footwear (QC): 6 Additional Goals: 1-Demonstrate ADL Tasks, 2-Verbalize Understanding, 3- ImproveStrength/Malika 1=Demonstrate adherence to instructed precautions during ADL tasks. 2=Patient will verbalize/demonstrate understanding of assistive devices/modifications for ADL. 3=Patient will improve strength/tolerance for activity to enable patient to perform ADL's. OT Education/Plan Problem List/Assessment Assessment: Decreased Activ Tolerance, Decreased UE Strength, Impaired Funct Balance, Impaired I ADL's, Impaired Self-Care Skills, Restricted Funct UE ROM Discharge Recommendations Plan/Recommendations: Continue POC Treatment Plan/Plan of Care Patient would benefit from OT for education, treatment and training to promote independence in ADL's, mobility, safety and/or upper extremity function for ADL's. Plan of Care: ADL Retraining, Functional Mobility, Group Exercise/Act as Ind, UE Funct Exercise/Act, UE Neuromus Re-Ed/Coord Treatment Duration: May 27, 2023 Frequency: At least 5 of 7 days/Wk (IRF) Estimated Hrs Per Day: 1.5 hours per day Agreement: Yes Rehab Potential: Good Time Start Time: 11:15 Stop Time: 11:55 DATE: May 03, 2023 Total Time Billed (hr/min): 40 Billed Treatment Time 1, PAUL PADILLA OT May 03, 2023 13:15
[2023-05-03] MEDS ORDERED: MELATONIN 3 MG TABLET PO PRN (13:30)
[2023-05-03] MEDS ORDERED: NALOXONE 0.4 MG/ML 1 ML VIAL IV PRN (13:30)
[2023-05-03] MEDS ORDERED: LOPERAMIDE 2 MG CAPSULE PO PRN (13:30)
[2023-05-03] MEDS ORDERED: LACTULOSE SYRUP 10GM/15ML 30ML UDC PO PRN (13:30)
[2023-05-03] MEDS ORDERED: ALPRAZolam 0.25 MG TABLET PO PRN (13:30)
[2023-05-03] MEDS ORDERED: BISACODYL 10 MG SUPPOSITORY PR PRN (13:30)
[2023-05-03] MEDS ORDERED: DOCUSATE SODIUM 100 MG CAPSULE PO PRN (13:30)
[2023-05-03] MEDS ORDERED: oxyCODONE IMMEDIATE RELEASE 5 MG TABLET PO PRN (13:30)
[2023-05-03] MEDS ORDERED: ONDANSETRON 4 MG ORAL DISSOLVE TABLET PO PRN (13:30)
[2023-05-03] MEDS ORDERED: ENOXAPARIN 40 MG/0.4 ML SYRINGE SC SCH (13:30)
[2023-05-03] MEDS ORDERED: diphenhydrAMINE 25 MG TABLET PO PRN (13:30)
[2023-05-03] MEDS ORDERED: guaiFENesin/CODEINE 10ML UDC PO PRN (13:30)
[2023-05-03] MEDS ORDERED: CALCIUM CARBONATE 500 MG CHEW TABLET PO PRN (13:30)
[2023-05-03] MEDS ORDERED: Sodium Phosphate/Sodium Biphosphate ADULT enema PR PRN (13:30)
--- NOTE | 2023-05-03 13:30 | PM&R Post Admission Assessment ---
PM&R HP Date of Visit: May 03, 2023 Time of Visit: 11:15 History of Present Illness CC: Right humerus fracture HPI: This is an 82yoWF clinic patient of Candida Britton who has no significant PMH who presented to ARU after worsened pain from right humerus fracture sustained in a fall 2 weeks ago. Her pain is improved but she is having difficulty managing at home due to dominant arm compromised. Dr Mireles has been consulted and a brace has been modified to help with the pain. Labs remain stable. Bowels are slow but moving. She lives at home along but [facility]. CC: Upper extremity arm pain HPI: 82-year-old female with a history of falls presented to the ED with upper right arm pain with bruising and swelling. Patient had a fall and has a known spiral fracture of the right mid humerus. Patient reports that she fell on the and went to the ED where she received a sling and pain medications and was told to follow-up with Dr. Mireles. On patient visit, she is still having pain in her right arm and is unable to move it. There is bruising starting at the mid- upper arm that goes down and engulfs her forearm and hand. She reports that the swelling has gone down, but there was still some swelling around the knuckles. Radial pulse was +2 on the right arm. Did receive an xray yesterday, which confi dionicio spiral fracture of right mid humerus. Patient is alert & oriented x3. She is a very christianity person and converse a lot. PMH: Menopausal, GERD, hiatal hernia, abdominal hernia, obesity, anxiety, depression PSH: Hysterectomy, cholecystectomy, oophorectomy, orthopedic (thumb surgery) ALL: Diphenhydramine HCl, morphine MED: Acetaminophen (1,000 mg PO Q8H PRN), Tumeric (did not know dosage), vitamin D3+K2 (did not know dosage), digestive enzyme (couldn't give any info about it), Gentle move stool softener (no dosage known) SH: No tobacco, no EtOH, no substance use, very christianity (Buddhist), FH: Mother , father & may have had diabetes. Brother age 90 who is living with diabetes, sister at 86 and had diabetes & dementia. Has mu ltiple other siblings but gave no more information. ROS: No chills, no fever, no changes in vision, no pain with swallowing, no neck pain, no cough, no SOB, no chest pain, edema (right hand), no nausea, no vomiting, joint pain, muscle pain, change in skin color, no lesions Exam: No apparent distress, WD/WN, obesity. Normal inspection on eyes bilaterally, PERRL/EOMI. Pharynx normal & moist mucous membranes. Chest is nontender, RRR with no gallop, no murmur, no JVD. Normal air movement, lungs CTAB, no wheezing or rhonchi. Alert & oriented x3. Normal mood/affect. Right arm is in pain and in a sling. Cannot move the right arm on its own. There is ecchymosis starting at the mid right upper arm that covers the whole forearm & hand. There is swelling of the knuckles and the hand. Radial pulse is +2 bilaterally. Images/Labs: X-ray on 05/03/23 showed mildly displaced mid diaphyseal fracture right humerus. Labs unremarkable. Assessment: Debility, recent fall, spiral fracture of right mid humerus, obesity, history of abdominal surgeries, GERD, anxiety, depression Plan: Admit to rehab, ambulate Past Giuukqh-Wmzglq-Dtkizi Hx Past Med/Social Hx: Reviewed Nursing Past Med/Soc Hx, Reviewed and Corrections made Patient Social History Marrital Status: single Employed/Student: retired Alcohol Use: Denies Use Smoking Status: Never a Smoker Seasonal Allergies Seasonal Allergies: Yes Past Medical History Surgeries: Gallbladder, Hysterectomy, Oophorectomy, Orthopedic Hysterectomy, Menopausal Gastrointestinal: Abdominal Hernia, Gastroesophageal Reflux, Hiatal Hernia Musculoskeletal: Gout Psychosocial: Anxiety, Depression History of Blood Disorders: No Adverse Reaction to Blood More: No Self Care: Independent Functional Cognition: Independent Eatin (assist with cutting food and opening containers.) Oral Hygiene: 5 PM&R Allergy/Meds/Data Review Allergies Coded Allergies: diphenhydramine HCl (Unverified Adverse Reaction, Mild, HYPERACTIVITY, 04/15/11) morphine (Verified Adverse Reaction, Unknown, HEADACHE, 03/08/23) Home Medications Scheduled PRN Acetaminophen (Tylenol Extra Strength), 1,000 MG PO Q8H PRN for PAIN-MILD (1-4), (Reported) Discontinued Medications Acetaminophen (Tylenol), 500 MG PO PRN, (Reported) Discontinued Reason: No Longer Taking Amoxicillin/Clavulanate K (Augmentin 875-125 Tablet), 1 TAB PO BID Docusate Sodium (Colace), 100 MG PO DAILY PRN for CONSTIPATION Discontinued Reason: No Longer Taking Fluconazole (Diflucan 200 Mg Tab), 1 EACH PO DAILY Hydrocodone/Acetaminophen (Hydrocodone-Acetamin 5-325 mg), 1 TAB PO Q4H PRN for PAIN-MODERATE (5-7) Ondansetron (Zofran Odt), 4 MG PO Q4H Thyroid,Pork (Nature-Throid), (Reported) Discontinued Reason: No Longer Taking Triamcinolone Acetonide (Triamcinolone Acetonide 0.5% Cream), 1 APPLIC TP BID Current Medications Current Medications Reviewed Review of Systems Constitutional: see HPI, dizziness, malaise, weakness EENTM: no symptoms reported Respiratory: no symptoms reported Cardiovascular: no symptoms reported Gastrointestinal: constipation Genitourinary: no symptoms reported Musculoskeletal: joint pain Skin: no symptoms reported Psychiatric/Neurological: No Symptoms Reported All Other Systems Reviewed Negative Unless Noted: Yes Physical Exam Physical Exam Vital Signs Vital Signs - First Documented 05/03/23 11:25 Temp 36.5 Pulse 71 Resp 18 B/P (MAP) 127/60 (82) Pulse Ox 98 O2 Delivery Room Air Capillary Refill : Height, Weight, BMI Height: 5'0" Weight: 197lbs. oz. [id number]; 47.36 BMI Method:Stated General Appearance: No Apparent Distress, WD/WN, Obese Eyes: Bilateral Eye Normal Inspection, Bilateral Eye PERRL HEENT: PERRL/EOMI, Normal ENT Inspection, Pharynx Normal Neck: Full Range of Motion, Normal Inspection, Non Tender, Supple, Carotid Bruit Respiratory: Chest Non Tender, Lungs Clear, Normal Breath Sounds, No Accessory Muscle Use, No Respiratory Distress Cardiovascular: Regular Rate, Rhythm, No Edema, No Gallop, No JVD, No Murmur, Normal Peripheral Pulses Gastrointestinal: Normal Bowel Sounds, No Organomegaly, No Pulsatile Mass, Non Tender, Soft Back: Normal Inspection, No CVA Tenderness, No Vertebral Tenderness Extremity: Normal Capillary Refill, Normal Inspection, Normal Range of Motion (except right arm in sling), Non Tender, No Calf Tenderness, No Pedal Edema Neurologic/Psychiatric: Alert, Oriented x3, Normal Mood/Affect, bull driver II-XII Norm as Tested, Motor Weakness (right arm and hand due to pain of fracture) Skin: Normal Color, Warm/Dry Lymphatic: No Adenopathy PM&R Medical Assessment & Plan REHAB/MEDICAL ASSESSMENT AND PLAN: REHAB IMPAIRMENT GROUP: Orthopedic other: Right humerus fracture ETIOLOGIC DIAGNOSIS: Right humerus fracture The comorbidities that impact the patients function and/or functional outcome by: advanced age, dominant hand restriction, fall risk REHAB PLAN: The patient is being admitted to our comprehensive inpatient rehabilitation facility and can tolerate the intensity of service consisting of at least: 180 minutes of therapy a day, 5 out of 7 days a week Rehab treatment will consist of: PT OT will focus on regaining function with the use of modified AD in order to regain function until right humerus fracture heals The patient/family has a good understanding of our discharge process and will benefit from an interdisciplinary inpatient rehabilitation program. The patient has potential to make improvement and is in need of at least two of the following multidisciplinary therapies including but not limited to physical, occupational, speech, and prosthetics and orthotics. Additionally the patient will need services from respiratory, nutritional services, wound care, psychology, etc. (Customize this to each patient). Given the patients complex condition and risk of further medical complications, rehabilitation services cannot be safely or effectively provided at a lower level of care such as a residential facility. BARRIERS TO DISCHARGE: advanced age ESTIMATED LOS: 7 days DISPOSITION: Home vs AL RELEVANT CHANGES SINCE PREADMISSION SCREENING: I have compared the patients medical and functional status at the time of the preadmission screening and there are: no changes PROGNOSIS: Good REHABILITATION GOALS: 1. PT OT will focus on regaining function with the use of modified AD in order to regain function until right humerus fracture heals All the above goals were reviewed with the patient and he/she is in agreement. By signing this document, I acknowledge that I have personally performed a full physical examination on this patient within 24 hours of admission to this inpatient rehabilitation facility and have determined the patient to be able to tolerate the above course of treatment at an intensive level for a reasonable period of time. I will be completing a detailed individualized Plan of Care for this patient by day #4 of the patients stay based upon the Preadmission Screen, the Post-Admission Evaluation, and the therapy evaluations. Admission Dx/Comorbidities: (1) Right humeral fracture Status: Acute ICD Codes: S42.301A - Unspecified fracture of shaft of humerus, right arm, initial encounter for closed fracture (2) Intractable pain ICD Codes: R52 - Pain, unspecified (3) Fall on same level from tripping Status: Acute ICD Codes: W01.0XXA - Fall on same level from slipping, tripping and stumbling without subsequent striking against object,initial encounter Assessment/Plan Assessment and Plan Assess & Plan/Chief Complaint Assessment: Right humerus fracture affecting dominant arm and hand Obesity Advanced age Falls Plan: PT OT AD use Monitor pain BERKLEY VEGA DO May 03, 2023 13:30
--- NOTE | 2023-05-03 14:28 | Physical Therapy Evaluation ---
PT Evaluation-General Medical Diagnosis Admission Date May 03, 2023 at 11:05 Medical Diagnosis: R humerus fx Onset Date: Apr 19, 2023 Therapy Diagnosis Therapy Diagnosis: fx humerus, displaced, no surgical intervention. Impaired mobility. Height/Weight Height (Feet): 5 Height (Inches): 0 Weight (Pounds): 197 Precautions Precautions/Isolations: Fall Prevention, Standard Precautions NWB (R) UE. 4 falls in past 3 months per patient (3 in yard, 1 in home - missed the step into living room). Weight Bear Status Weight Bearing/Tolerated Weight Bearing/Tolerated Referral Physician: Tello Reason for Referral: Evaluation/Treatment Medical History Additional Medical History See H&P Current History Patient fell in yard 04/19 and fractured (R) humerus. It was placed in a sulley brace by GP. Patient came to ER due to intractable pain on 05/02/23. Admitted under observation. Dr. Mireles consulted and intially ordered no intervention, however his executive administrative assistant placed a splint on the arm after patient's arrival on the ARU. Patient is NWB (R) UE. Social History Home: Multilevel Current Living Status: Alone Other Obstacles: Full flight to 2nd level (Laundry and shower).1 step kitchen to living room Prior Prior Level of Function SCALE: Activities may be completed with or without assistive devices. 8-Jgunboytqe-pvxviax completes the activity by him/herself with no assistance from a helper. 5-Set-up or Clean-up Assistance-helper sets up or cleans up; patient completes activity. [place] assists only prior to or following the activity. 4-Supervision or Touching Assistance-helper provides verbal cues and/or touching/steadying and/or contact guard assistance as patient completes activity. Assistance may be provided throughout the activity or intermittently. 3-Partial/Moderate Assistance-helper does LESS THAN HALF the effort. [place] lifts, holds or supports trunk or limbs, but provides less than half the effort. 2-Substantial/Maximal Assistance-helper does MORE THAN HALF the effort. [place] lifts or holds trunk or limbs and provides more than half the effort. 3-Fitqlddwm-dvcqwf does ALL the effort. Patient does none of the effort to complete the activity. Or, the assistance of 2 or more helpers is required for the patient to complete the activity. If activity was not attempted, code reason: 7-Patient Refused. 9-Not Applicable-not attempted and the patient did not perform the activity before the current illness, exacerbation or injury. 10-Not Attempted due to Environmental Limitations-(lack of equipment, weather restraints, etc.). 88-Not Attempted due to Medical Conditions or Safety Concerns. Bed Mobility: 6 (Has been sleeping on a cot for 2 years on lower level of home.) Transfers (B,C,W/C): 6 Gait: 6 (states she does not use her cane, but cruises on furniture.) Stairs: 6 (states she has continued to do laundry on 2nd level, dragging bag of laundry up/down. Stated to OT that she has not been upstairs for 2 months.) Wheelchair Mobility: 9 Indoor Mobility (Ambulation): Independent Stairs: Independent Prior Devices Use: Other-see list below cane prn only. Using a bucket as a bedside commode. PT Evaluation-Current Subjective pain 8/10 (R) arm. Splint just placed by PA/ortho. Pain Section J - Health Conditions 1. Rarely or not at all 2. Occasionally 3. Frequently 4. Almost constantly 8. Unable to answer Pain Effect on Sleep: 4 Pain Interference with Therapy: 4 Pain Interference w/Day-to-Day: 4 Pt/Family Goals to return to her home. Objective Patient Orientation: Person, Place, Time, Situation sling (R) arm. extensive bruising (R) UE and hand. Edematous (R) hand. ROM/Strength ROM Upper Extremities deferred to OT ROM Lower Extremities WFL ankles/knees in sitting. Decreased hip flexion actively - hip flexor weakness and body habitus.. Strength Upper Extremities deferred to OT Strength Lower Extremities (B) ankles 5/5 DF/PF. knee extension 4+/5 (B), knee flexion 4/5 (B), hip flexion 3-/5 (B), hip adduction 4+5, hip abduction 3+/5. (B). Sensory Hand Dominance: Right Sensation Right Lower Extremit: Intact Sensation Left Lower Extremity: Intact Transfers Roll Left & Right (QC): 88 (NWB (R) shoulder/UE) Sit to Lying (QC): 4 (CGA to brace hip while patient lifted legs up onto bed.) Lying to Sitting/Side of Bed(Q: 3 (Min (A) to lift trunk) Sit to Stand (QC): 4 (CGA with cues for hand placement) Chair/Sly-te-Hebgm Xfer(QC): 3 (Min (A) with hemiwalker) Toilet Transfer (QC): 3 (Min (A) with grab bar/hemiwalker.) Car Transfer (QC): 3 (Min (A) to lift (L) LE into vehicle. Mod (A) to guard patient as she stood up from car with 1 foot still in car - discussed safety concern.) Poor safety awareness with car transfers. Gait Does the Patient Walk?: Yes Mode of Locomotion: Walk Anticipated Mode of Locomotion: Walk Walk 10 feet (QC): 3 (min (A) with hemiwalker) Walk 50 ft with 2 Turns(QC): 3 (min (A) with hemiwalker) Walk 150 ft (QC): 88 (unable due to endurance deficit) Walking 10ft/uneven surface-QC: 3 (min (A) with hemiwalker) Distance: 60'. States her (L) knee "gives out" sometimes. Comments/Gait Description Hemiwalker Wheelchair Training Does the Pt Use a Wheelchair?: No Wheel 50 ft with 2 turns (QC): 9 Wheel 150 ft (QC): 9 Stairs 1 Step (curb) (QC): 3 (mod (A) with hemiwalker and max encouragement to attempt) 4 Steps (QC): 88 12 Steps (QC): 88 Balance Sitting Static: Normal Sitting Dynamic: Fair Standing Static: Fair Standing Dynamic: Fair Picking up an Object (QC): 88 (NT - fear of falling) Special Test Comments KU sitting balance: 4/5 KU standing balance: 1+/5 Assessment/Needs 82 year old female s/p fall at home with fracture to (R) humerus. Pain prevents patient from caring for herself adequately at home. Rehab Potential: Fair Post Rehab Potential-Barriers: multiple level home, frequent falls prior to this fracture Equipment Needs hemiwalker PT Longterm Goals [place] Goals PT Longterm Goals Time Frame: May 17, 2023 Roll Left to Right (QC): 88 (due to NWB (R) UE/humerus fracture) Sit to Lying (QC): 6 Lying-Sitting on Side/Bed(QC): 6 Sit to Stand (QC): 6 Chair/Xeo-pg-Jzhsb Xfer(QC): 6 Toilet/Commode Transfer (QC): 6 Car Transfer (QC): 5 Does the Patient Walk: Yes Walk 10 feet (QC): 6 (/c hemiwalker or cane) Walk 10ft-Uneven Surface(QC): 6 Walk 50ft with 2 Turns (QC): 6 Walk 150 ft (QC): 6 Does the Pt use WC or Scooter?: No Wheel 50 feet with 2 turns (QC: 9 Type: N/A Wheel 150 feet: 9 Type: N/A 1 Step (curb) (QC): 4 4 Steps (QC): 4 12 Steps (QC): 4 Picking up an Object (QC): 5 with senior information systems architect PT Plan Problem List Problem List: Activity Tolerance, Functional Strength, Safety, Balance, Gait, Transfer, Bed Mobility, ROM Treatment/Plan Treatment Plan: Continue Plan of Care Treatment Plan: Bed Mobility, Education, Functional Activity Malika, Functional Strength, Group Therapy, Gait, Safety, Therapeutic Exercise, Transfers Treatment Duration: May 17, 2023 Frequency: At least 5 of 7 days/Wk (IRF) Estimated Hrs Per Day: 1.5 hours per day Patient and/or Family Agrees t: Yes Safety Risks/Education Safety Risk Comments: Fall risk - 4 falls past 3 months, impaired safety awareness Patient Education: Gait Training, Transfer Techniques, Correct Positioning Teaching Recipient: Patient Teaching Methods: Demonstration, Discussion Response to Teaching: Reinforcement Needed Discharge Recommendations Plan JAVON vs home alone Therapy Discharge Recommendati: Assisted Living, Meals on Wheels, Bath Aide, Homemaker Support, Post Acute PT Equpiment Recommendations-D/C: Other, Please Explain (Hemiwalker) Time Time In: 1345 Time Out: 1415 DATE: May 03, 2023 Total Billed Treatment Time: 30 Total Billed Treatment EVM 30' Felicia Garcia PT May 03, 2023 14:28
--- NOTE | 2023-05-03 14:55 | Physical Therapy Daily Note ---
PT Daily Note-Current Subjective Pt found seated in recliner upon entry. Agreed to PT/OT co-treatment. No reports of pain throughout visit. Pain Section J - Health Conditions 1. Rarely or not at all 2. Occasionally 3. Frequently 4. Almost constantly 8. Unable to answer Pain Effect on Sleep: 4 Pain Interference with Therapy: 4 Pain Interference w/Day-to-Day: 4 Mental Status Patient Orientation: Person, Place Transfers SCALE: Activities may be completed with or without assistive devices. 9-Zieprqaisn-bwixqow completes the activity by him/herself with no assistance from a helper. 5-Set-up or Clean-up Assistance-helper sets up or cleans up; patient completes activity. [place] assists only prior to or following the activity. 4-Supervision or Touching Assistance-helper provides verbal cues and/or touching/steadying and/or contact guard assistance as patient completes activity. Assistance may be provided throughout the activity or intermittently. 3-Partial/Moderate Assistance-helper does LESS THAN HALF the effort. [place] lifts, holds or supports trunk or limbs, but provides less than half the effort. 2-Substantial/Maximal Assistance-helper does MORE THAN HALF the effort. [place] lifts or holds trunk or limbs and provides more than half the effort. 7-Fppklkwzi-pprqyz does ALL the effort. Patient does none of the effort to complete the activity. Or, the assistance of 2 or more helpers is required for the patient to complete the activity. If activity was not attempted, code reason: 7-Patient Refused. 9-Not Applicable-not attempted and the patient did not perform the activity before the current illness, exacerbation or injury. 10-Not Attempted due to Environmental Limitations-(lack of equipment, weather restraints, etc.). 88-Not Attempted due to Medical Conditions or Safety Concerns. Sit to Stand (QC): 4 Pt performs sit to stand transfer from recliner /c use of L armrests for push off. SBA required for completion due to strength and balance deficits. Weight Bearing Weight Bearing/Tolerated Weight Bearing/Tolerated Gait Training Does the Patient Walk?: Yes Distance: 10 feet Walk 10 feet (QC): 4 Gait Persons Needed: 1 Gait Assistive Device: Walker Robin Pt ambulates /c use of robin walker 10 feet x 2 during treatment. SBA required due to strength and balance deficits. Displays decent step length and slow gait pattern. No loss of balance demonstrated. Assessment Current Status: Fair Progress Pt displays good tolerance to therapeutic interventions. Ambulates 10 feet /c use of robin walker to bathroom before completing shower and dressing /c OT. Demonstrates decent step lengths during ambulation. After shower pt ambulates 10 feet back to recliner. Call light in place /c all needs met post-treatment. Continue to progress pt per POC. PT Soft Work Cigar Machine Operator Goals Soft Work Cigar Machine Operator Goals Roll Left & Right (QC): 88 Sit to Lying (QC): 6 Lying-Sitting on Side/Bed(QC): 6 Sit to Stand (QC): 6 Chair/Yso-ki-Pwpen Xfer(QC): 6 Toilet Transfer (QC): 6 Car Transfer (QC): 5 Does the Patient Walk: Yes Walk 10 feet (QC): 6 Walk 50ft with 2 Turns (QC): 6 Walk 150 ft (QC): 6 Walking 10ft on Uneven Surface: 6 1 Step (curb) (QC): 4 4 Steps (QC): 4 12 Steps (QC): 4 Picking up an Object (QC): 5 Does the Pt use WC or Scooter?: No Wheel 50 feet with 2 turns (QC: 9 Wheel 150 feet: 9 PT Plan Treatment/Plan Treatment Plan: Continue Plan of Care Treatment Duration: May 17, 2023 Frequency: 5 times per week Estimated Hrs Per Day: 1.5 hours per day Time Time In: 1415 Time Out: 1515 DATE: May 03, 2023 Total Billed Treatment Time: 60 Total Billed Treatment 1 visit GT x 1 FA x 3 KELLY POLLOCK AUTOMATION ENGINEERING TECHNICIAN May 03, 2023 14:55
--- NOTE | 2023-05-03 15:54 | Occupational Ther Daily Note ---
OT Current Status-Daily Note Subjective Pt agreeable to therapy tx with focus on showering. Mental Status/Objective Patient Orientation: Person, Place, Time, Situation Attachments: Other-See Comments (CHIDI wilks) ADL-Treatment Therapy Code Descriptions/Definitions Functional [place] Measure: 0=Not Assessed/NA 4=Minimal Assistance 1=Total Assistance 5=Supervision or Setup 2=Maximal Assistance 6=Modified [place] 3=Moderate Assistance 7=Complete IndependenceSCALE: Activities may be completed with or without assistive devices. 4-Efvmabqerz-yztqayl completes the activity by him/herself with no assistance from a helper. 5-Set-up or Clean-up Assistance-helper sets up or cleans up; patient completes activity. [place] assists only prior to or following the activity. 4-Supervision or Touching Assistance-helper provides verbal cues and/or touching/steadying and/or contact guard assistance as patient completes activity. Assistance may be provided throughout the activity or intermittently. 3-Partial/Moderate Assistance-helper does LESS THAN HALF the effort. [place] lifts, holds or supports trunk or limbs, but provides less than half the effort. 2-Substantial/Maximal Assistance-helper does MORE THAN HALF the effort. [place] lifts or holds trunk or limbs and provides more than half the effort. 2-Zicjvywba-kopocc does ALL the effort. Patient does none of the effort to complete the activity. Or, the assistance of 2 or more helpers is required for the patient to complete the activity. If activity was not attempted, code reason: 7-Patient Refused. 9-Not Applicable-not attempted and the patient did not perform the activity before the current illness, exacerbation or injury. 10-Not Attempted due to Environmental Limitations-(lack of equipment, weather restraints, etc.). 88-Not Attempted due to Medical Conditions or Safety Concerns. Other Treatment OT/PT cotreat due to skill of 2 clinicians required which a fire protection equipment technician could not perform in order to coordinate UE/LES, decrease fall risk, and due to pt's limitations in strength, activity tolerance, mobility and pain. OT focused on UE placement, cues for sequencing and safety and ADLs, PT focused on LE placement, gross overall movement, transfers and mobility. Pt used hemiwalker to transfer into bathroom and onto ID, SBA. Pt doffed clothes, completed shower (RUE covered prior to shower and remained dry post shower). Pt then donned clothes. Pt required increased time with tasks, as she was problem solving ways to complete tasks herself. After shower, pt transferred to recliner using hemwalker SBA. OT attempted to position RUE elevated slightly on pillow to decrease RUE swelling, but pt stated it was too uncomfortable and refused pillow. OT attempted education on importance of elevation, but pt continued to decline further positioning. Post tx, pt in recliner, call light in reach and all needs met. Shower/Bathe Self (QC): 3 (Assist with washing/drying abdominal pannus, LUE, BLE feet) Upper Body Dressing (QC): 3 (Assist with threading RUE and managing down trunk) Lower Body Dressing (QC): 4 (SBA, increased time required) On/Off Footwear (QC): 3 (Mod A. Pt able to doff, assist to don gripper socks. ) OT Usp Goals Court Recorder Goals Time Frame: May 27, 2023 Acute change in mental status: 0 Inattention: 1 Disorganized thinkin Altered level of consciousness: 0 Eating (QC): 6 Oral Hygiene (QC): 6 Toileting Hygiene (QC): 6 Shower/Bathe Self (QC): 6 Upper Body Dressing (QC): 6 Lower Body Dressing (QC): 6 On/Off Footwear (QC): 6 Additional Goals: 1-Demonstrate ADL Tasks, 2-Verbalize Understanding, 3- ImproveStrength/Malika 1=Demonstrate adherence to instructed precautions during ADL tasks. 2=Patient will verbalize/demonstrate understanding of assistive devices/modifications for ADL. 3=Patient will improve strength/tolerance for activity to enable patient to perform ADL's. OT Education/Plan Problem List/Assessment Assessment: Decreased Activ Tolerance, Decreased UE Strength, Impaired Funct Balance, Impaired I ADL's, Impaired Self-Care Skills Discharge Recommendations Plan/Recommendations: Continue POC Treatment Plan/Plan of Care Patient would benefit from OT for education, treatment and training to promote independence in ADL's, mobility, safety and/or upper extremity function for ADL's. Plan of Care: ADL Retraining, Functional Mobility, Group Exercise/Act as Ind, UE Funct Exercise/Act, UE Neuromus Re-Ed/Coord Treatment Duration: May 27, 2023 Frequency: At least 5 of 7 days/Wk (IRF) Estimated Hrs Per Day: 1.5 hours per day Agreement: Yes Rehab Potential: Good Time Start Time: 14:15 Stop Time: 15:15 DATE: May 03, 2023 Total Time Billed (hr/min): 60 Billed Treatment Time cotreat x60' 1, ADL 4 PAUL BARBER OT May 03, 2023 15:54
[2023-05-03] MEDS: ENOXAPARIN 40 MG/0.4 ML SYRINGE SC SCH (16:40)
--- NOTE | 2023-05-03 17:36 | CONSULTATION REPORT ---
DATE OF SERVICE: 05/03/2023 Room 230. CHIEF COMPLAINT: Right humerus fracture. SERVICE: Orthopedic Surgery. HISTORY OF PRESENT ILLNESS: This 82-year-old female currently admitted to the rehab unit. She is now approximately 2 weeks status post right humerus fracture, which was being treated on an outpatient basis by Dr. Alexander. The patient was recently fitted for a plastic clamshell orthosis and she reports that she has not tolerated the brace well. Due to admission to inpatient care, Orthopedics was then consulted. The patient reports today that she is having minimal pain in her right arm at rest, but does report significant pain with attempted motion. She currently is utilizing a sling, but reports comfort letting the right arm hang downward at her side. CURRENT MEDICATIONS: Joint Health supplement, calcium with D, and vitamin K supplement, turmeric, doxycycline, baclofen, and tramadol. PAST MEDICAL HISTORY: Hypothyroidism, abdominal hernia, varicose veins, menopause, shingles, and vitamin D deficiency. PAST SURGICAL HISTORY: Hysterectomy, appendectomy, cholecystectomy and right thumb surgery. PRIMARY CARE PROVIDER: Kyung Britton, nurse practitioner. MEDICATION ALLERGIES: BENADRYL, MORPHINE, LEVAQUIN, AND BACTRIM. SOCIAL HISTORY: She does not smoke or use alcohol or illicit drugs. REVIEW OF X-RAYS: Two views of the right humerus from [facility] dated 05/03/2023 showed a well-aligned midshaft spiral humerus fracture. This did demonstrate significant displacement, but no significant shortening was noted and no significant angulation was noted. PHYSICAL EXAMINATION: Today, the right upper extremity demonstrates diffuse swelling and ecchymosis. This does extend into the fingers. Sensation was otherwise grossly intact to light touch, ulnar, radial and median nerve distribution. She was nontender throughout the wrist, forearm and elbow, but did have tenderness throughout the mid shaft humerus nontender throughout the shoulder. IMPRESSION: Displaced right midshaft humerus fracture. PLAN: This was discussed with the patient and we have elected to proceed with a different form of splinting. She was placed into a sugar tong humerus splint today using 4-inch Orthoglass. She tolerated the splint very well. She can remove the splint as needed for bathing. We will plan to recheck her again in 2 weeks on an outpatient basis with Dr. Alexander with new x-rays on arrival. They will call sooner if needed. Thank you for the consult. Job ID: [id number] DocumentID: [id number] Dictated Date: 05/03/2023 16:30:39 Vice President Compliance Date: 05/03/2023 17:11:00 Dictated By: RON GUTIÉRREZ
[2023-05-03] MEDS: ACETAMINOPHEN 325 MG TABLET PO PRN (19:00)
[2023-05-03] MEDS: SENNA W/DOCUSATE TABLET PO SCH (20:36)
[2023-05-03] MEDS: NYSTATIN CREAM 30 GM TUBE TP SCH (20:36)
[2023-05-03] MEDS: DOCUSATE SODIUM 100 MG CAPSULE PO SCH (20:36)
[2023-05-03] MEDS: MICONAZOLE 2% POWDER 90 GM TOP SCH (20:36)
[2023-05-03 21:31] VITALS: BP 125/78
[2023-05-04] MEDS: ACETAMINOPHEN 325 MG TABLET PO PRN ×3 (02:46→21:23)
[2023-05-04] MEDS: ENOXAPARIN 40 MG/0.4 ML SYRINGE SC SCH ×2 (04:54→15:59)
[2023-05-04 05:55] LABS: BASOPHILS % (AUTO) 1 % (0-10); EOSINOPHILS # (AUTO) 0.1 10^3/uL (0.0-0.3); EOSINOPHILS % (AUTO) 2 % (0-10); HEMATOCRIT 38 % (35-52); HEMOGLOBIN 12.2 g/dL (11.5-16.0); LYMPHOCYTES # (AUTO) 1.1 10^3/uL (1.0-4.0); LYMPHOCYTES % (AUTO) 19 % (12-44); MEAN CORPUSCULAR HEMOGLOBIN 30 pg (25-34); MEAN CORPUSCULAR HGB CONC 33 g/dL (32-36); MEAN CORPUSCULAR VOLUME 91 fL (80-99); MEAN PLATELET VOLUME 9.2 fL (9.0-12.2); MONOCYTES # (AUTO) 0.4 10^3/uL (0.0-1.0); MONOCYTES % (AUTO) 8 % (0-12); NEUTROPHILS # (AUTO) 4.1 10^3/uL (1.8-7.8); NEUTROPHILS % (AUTO) 71 % (42-75); PLATELET COUNT 152 10^3/uL (130-400); WHITE BLOOD COUNT 5.9 10^3/uL (4.3-11.0)
[2023-05-04 06:26] LABS: ALBUMIN 3.2 GM/DL (3.2-4.5); CALCIUM 8.4 MG/DL (8.5-10.1); CREATININE SERUM 0.81 MG/DL (0.60-1.30); POTASSIUM 3.8 MMOL/L (3.6-5.0); TOTAL PROTEIN 5.6 GM/DL (6.4-8.2)
[2023-05-04 08:00] VITALS: BP 108/61
[2023-05-04] MEDS: SENNA W/DOCUSATE TABLET PO SCH ×2 (08:46→21:23)
[2023-05-04] MEDS: DOCUSATE SODIUM 100 MG CAPSULE PO SCH ×2 (08:46→21:23)
[2023-05-04] MEDS: MICONAZOLE 2% POWDER 90 GM TOP SCH ×2 (08:48→21:23)
[2023-05-04] MEDS: NYSTATIN CREAM 30 GM TUBE TP SCH ×3 (08:48→21:25)
--- NOTE | 2023-05-04 10:04 | PM&R Progress Note ---
Subjective HPI/CC On Admission Date Seen by Provider: May 04, 2023 Time Seen by Provider: 12:30 Subjective/Events-last exam 05/04/2023: Patient declined the splint ortho had provided her Not satisfied with the quad cane and refuses to use it Just wants to go to detention so she can be "taken care of" Review of Systems General: Fatigue, Malaise Musculoskeletal: arm pain Neurological: Weakness Objective Exam Vital Signs Vital Signs Date Time Temp Pulse Resp B/P (MAP) Pulse Ox O2 Delivery O2 Flow Rate FiO2 05/04/23 09:00 98 Room Air 05/04/23 08:00 36.5 68 14 108/61 (77) Capillary Refill : General Appearance: No Apparent Distress, WD/WN, Obese HEENT: PERRL/EOMI, Normal ENT Inspection, Pharynx Normal Neck: Full Range of Motion, Normal Inspection, Non Tender, Supple, Carotid Bruit Respiratory: Chest Non Tender, Lungs Clear, Normal Breath Sounds, No Accessory Muscle Use, No Respiratory Distress Cardiovascular: Regular Rate, Rhythm, No Edema, No Gallop, No JVD, No Murmur, Normal Peripheral Pulses Gastrointestinal: Normal Bowel Sounds, No Organomegaly, No Pulsatile Mass, Non Tender, Soft Back: Normal Inspection, No CVA Tenderness, No Vertebral Tenderness Extremity: Normal Capillary Refill, Normal Inspection, Normal Range of Motion (except right arm in sling), Non Tender, No Calf Tenderness, No Pedal Edema Neurologic/Psychiatric: Alert, Oriented x3, Normal Mood/Affect, electrical & instrumentation supervisor II-XII Norm as Tested, Motor Weakness (right arm and hand due to pain of fracture) Skin: Normal Color, Warm/Dry Lymphatic: No Adenopathy Results/Procedures Lab Laboratory Tests 05/04/23 05:40 05/04/23 05:43 Patient resulted labs reviewed. FIM Transfers Therapy Code Descriptions/Definitions Functional [place] Measure: 0=Not Assessed/NA 4=Minimal Assistance 1=Total Assistance 5=Supervision or Setup 2=Maximal Assistance 6=Modified [place] 3=Moderate Assistance 7=Complete IndependenceSCALE: Activities may be completed with or without assistive devices. 4-Bnezpbpeer-qtfddwi completes the activity by him/herself with no assistance from a helper. 5-Set-up or Clean-up Assistance-helper sets up or cleans up; patient completes activity. [place] assists only prior to or following the activity. 4-Supervision or Touching Assistance-helper provides verbal cues and/or touching/steadying and/or contact guard assistance as patient completes activity. Assistance may be provided throughout the activity or intermittently. 3-Partial/Moderate Assistance-helper does LESS THAN HALF the effort. [place] lifts, holds or supports trunk or limbs, but provides less than half the effort. 2-Substantial/Maximal Assistance-helper does MORE THAN HALF the effort. [place] lifts or holds trunk or limbs and provides more than half the effort. 9-Ojdgffxvy-jwltqd does ALL the effort. Patient does none of the effort to complete the activity. Or, the assistance of 2 or more helpers is required for the patient to complete the activity. If activity was not attempted, code reason: 7-Patient Refused. 9-Not Applicable-not attempted and the patient did not perform the activity before the current illness, exacerbation or injury. 10-Not Attempted due to Environmental Limitations-(lack of equipment, weather restraints, etc.). 88-Not Attempted due to Medical Conditions or Safety Concerns. Roll Left to Right (QC): 88 (NWB (R) shoulder/UE) Sit to Lying (QC): 4 (CGA to brace hip while patient lifted legs up onto bed.) Sit to Stand (QC): 4 Chair/Nln-tu-Mzhbf Xfer(QC): 3 (Min (A) with hemiwalker) Car Transfer (QC): 3 (Min (A) to lift (L) LE into vehicle. Mod (A) to guard patient as she stood up from car with 1 foot still in car - discussed safety concern.) Gait Training Does the Patient Walk?: Yes Distance: 10 feet Walk 10 feet (QC): 4 Walk 50 ft with 2 Turns(QC): 3 (min (A) with hemiwalker) Walk 150 ft (QC): 88 (unable due to endurance deficit) Walking 10ft/uneven surface-QC: 3 (min (A) with hemiwalker) Gait Persons Needed: 1 Gait Assistive Device: Walker Robin Wheelchair Training Does the Pt Use a Wheelchair?: No Wheel 50 ft with 2 turns (QC): 9 Wheel 150 ft (QC): 9 Stair Training 1 Step (curb) (QC): 3 (mod (A) with hemiwalker and max encouragement to attempt) 4 Steps (QC): 88 12 Steps (QC): 88 Balance Picking up an Object (QC): 88 (NT - fear of falling) ADL-Treatment Eating (QC): 5 (assist with cutting food and opening containers.) Oral Hygiene (QC): 5 Shower/Bathe Self (QC): 3 (Assist with washing/drying abdominal pannus, LUE, BLE feet) Upper Body Dressing (QC): 3 (Assist with threading RUE and managing down trunk) Lower Body Dressing (QC): 4 (SBA, increased time required) On/Off Footwear (QC): 3 (Mod A. Pt able to doff, assist to don gripper socks. ) Toileting Hygiene (QC): 4 (SBA, increased time required with pant hike on R side.) Assessment/Plan Assessment and Plan Assess & Plan/Chief Complaint Assessment: Right humerus fracture affecting dominant arm and hand Obesity Advanced age Falls Plan: PT OT AD use Monitor pain 05/04/2023: Refuses AD Refuses splint (1) Right humeral fracture Status: Acute (2) Intractable pain (3) Fall on same level from tripping Status: Acute BERKLEY VEGA DO May 04, 2023 10:04
--- NOTE | 2023-05-04 10:06 | Physical Therapy Daily Note ---
PT Daily Note-Current Subjective Pt sitting in recliner completing facial care upon arrival. Pt agrees to PT. Pt is very talkative and needs VC to stay on task. Pain Location: Right Location Body Site: Arm Pain Description: Burning Section J - Health Conditions 1. Rarely or not at all 2. Occasionally 3. Frequently 4. Almost constantly 8. Unable to answer Pain Effect on Sleep: 3 Pain Interference with Therapy: 3 Pain Interference w/Day-to-Day: 3 Mental Status Patient Orientation: Person, Place, Situation Attachments: Other-See Comments (Sling for R UE) Transfers SCALE: Activities may be completed with or without assistive devices. 1-Dlwkudezos-srhyyaa completes the activity by him/herself with no assistance from a helper. 5-Set-up or Clean-up Assistance-helper sets up or cleans up; patient completes activity. [place] assists only prior to or following the activity. 4-Supervision or Touching Assistance-helper provides verbal cues and/or touching/steadying and/or contact guard assistance as patient completes activity. Assistance may be provided throughout the activity or intermittently. 3-Partial/Moderate Assistance-helper does LESS THAN HALF the effort. [place] lifts, holds or supports trunk or limbs, but provides less than half the effort. 2-Substantial/Maximal Assistance-helper does MORE THAN HALF the effort. [place] lifts or holds trunk or limbs and provides more than half the effort. 5-Dqmecdfpy-dognsx does ALL the effort. Patient does none of the effort to complete the activity. Or, the assistance of 2 or more helpers is required for the patient to complete the activity. If activity was not attempted, code reason: 7-Patient Refused. 9-Not Applicable-not attempted and the patient did not perform the activity bef ore the current illness, exacerbation or injury. 10-Not Attempted due to Environmental Limitations-(lack of equipment, weather r estraints, etc.). 88-Not Attempted due to Medical Conditions or Safety Concerns. Sit to Stand (QC): 4 Weight Bearing Weight Bearing/Tolerated Weight Bearing/Tolerated Gait Training Does the Patient Walk?: Yes Distance: 75' x2 Walk 10 feet (QC): 4 Walk 50 ft with 2 Turns(QC): 4 Walk 150 ft (QC): 4 Gait Persons Needed: 1 Gait Assistive Device: Handheld Assist Exercises Seated Therapy Exercises: Ankle pumps, Long arc quads, Hip flexion, Hip abd/add, Glut set Seated Reps: 15 Treatments Pt completes Seated EX before TF to standing and amb to BR. Pt amb in hallway, taking RB as needed due to reported Sciatic pain and fatigue. Pt returns to room to rest in recliner at end of tx. All needs met, call light in hand. Assessment Current Status: Fair Progress Pt gets distracted easily and needs VC to stay on task. Pt reports pain that limits movement at times but also not constantly. PT Housekeeping Attendant Goals [facility] Goals PT [facility]it[facility]iary Goals Time Frame: May 17, 2023 Roll Left & Right (QC): 88 (due to NWB (R) UE/humerus fracture) Sit to Lying (QC): 6 Lying-Sitting on Side/Bed(QC): 6 Sit to Stand (QC): 6 Chair/Qbp-sl-Zfqnu Xfer(QC): 6 Toilet Transfer (QC): 6 Car Transfer (QC): 5 Does the Patient Walk: Yes Walk 10 feet (QC): 6 (/c hemiwalker or cane) Walk 50ft with 2 Turns (QC): 6 Walk 150 ft (QC): 6 Walking 10ft on Uneven Surface: 6 1 Step (curb) (QC): 4 4 Steps (QC): 4 12 Steps (QC): 4 Picking up an Object (QC): 5 Does the Pt use WC or Scooter?: No Wheel 50 feet with 2 turns (QC: 9 Type: N/A Wheel 150 feet: 9 Type: N/A PT Plan Problem List Problem List: Activity Tolerance, Functional Strength, Gait Treatment/Plan Treatment Plan: Continue Plan of Care Treatment Plan: Bed Mobility, Education, Functional Activity Malika, Functional Strength, Group Therapy, Gait, Safety, Therapeutic Exercise, Transfers Treatment Duration: May 17, 2023 Frequency: At least 5 of 7 days/Wk (IRF) Estimated Hrs Per Day: 1.5 hours per day Patient and/or Family Agrees t: Yes Safety Risks/Education Patient Education: Gait Training, Correct Positioning, Safety Issues Teaching Recipient: Patient Teaching Methods: Discussion Response to Teaching: Verbalize Understanding, Reinforcement Needed Time Time In: 800 Time Out: 900 DATE: May 04, 2023 Total Billed Treatment Time: 60 Total Billed Treatment 1, FA x2 (25m), GT (20m) & EX (15m) KATE CHRISTENSEN POWER MULE OPERATOR May 04, 2023 10:06
--- NOTE | 2023-05-04 10:06 | Individualized Plan of Care ---
Individualized Plan of Care Rehab Nursing IPOC Order Admission Date May 03, 2023 at 11:05 Current Orders Orders Admission Arrival Bed Request (05/03/23 11:16) General/Regular (05/03/23 Lunch) Admission Order(Inpt,Obs,Sdc) (05/03/23 13:24) Vital Signs: Per Unit Policy ( 08,16,00 (05/03/23 13:24) [place] Hose 09,21 (05/03/23 13:24) Sequential Compression Device [id number] (05/03/23 13:24) Enterprise Analyst-Inpt Rehab Con (05/03/23 13:24) Rehab Nursing Orders-Ipoc (05/03/23 13:24) Physical Therapy Rehab Orders (05/03/23 13:24) Occupational Therapy Rehab Ord (05/03/23 13:24) Speech Therapy Rehab Orders (05/03/23 13:24) Cbc With Automated Diff (05/04/23 06:00) Comprehensive Metabolic Panel (05/04/23 06:00) Precautions (Aru) (05/03/23 13:24) Weekly Weight WEEK (05/03/23 13:24) Rehab-Intensity Of Therapy (05/03/23 13:24) Initiate Admission Nursing Pro .admission (05/03/23 13:24) Alprazolam Tablet (Alprazolam Tablet) (05/03/23 13:30) Calcium Carbonate Chew Tablet (Calcium C (05/03/23 13:30) Diphenhydramine Tablet (Diphenhydramine (05/03/23 13:30) Docusate Sodium Capsule (Docusate Sodium (05/03/23 21:00) Docusate Sodium Capsule (Docusate Sodium (05/03/23 13:30) Bisacodyl Suppository (Bisacodyl Supposi (05/03/23 13:30) Lactulose Oral Solution (Enulose Oral So (05/03/23 13:30) Na Phos/Na Biphos Adult Enema (Na Phos/N (05/03/23 13:30) Guaifenesin/Codeine Syrup (Guaifenesin/C (05/03/23 13:30) Loperamide Capsule (Loperamide Capsule) (05/03/23 13:30) Enoxaparin Injection (Enoxaparin Injecti (05/03/23 13:30) Melatonin Tablet (Melatonin Tablet) (05/03/23 13:30) Polyethylene Glycol Powder (Polyethylen (05/03/23 21:00) Ondansetron Oral Dissolve Tab (Ondanset (05/03/23 13:30) Senna W/Docusate Tablet (Senna W/Docusat (05/03/23 21:00) Acetaminophen Tablet (Acetaminophen Ta (05/03/23 13:30) Therapeutic Activity Goals: .PRN (05/03/23 13:24) Nursing Communication (Order) (05/03/23 ) Oxycodone Immediate Rel Tablet (Oxycodon (05/03/23 13:30) Naloxone Injection (Naloxone Injection) (05/03/23 13:30) Code/Resuscitation (05/03/23 13:24) Initiate Admission Nursing Pro .admission (05/03/23 13:24) Enoxaparin Injection (Enoxaparin Injecti (05/03/23 16:00) Patient Visit (05/03/23 ) Pt Eval Moderate Complexity (05/03/23 ) Patient Visit (05/03/23 ) Gait Training, Ea 15 Min (05/03/23 ) Functional Activities, Ea 15 (05/03/23 ) Nystatin Cream (Nystatin Cream) (05/03/23 21:00) Miconazole 2% Powder (Miconazole 2% Powd (05/03/23 21:00) Patient Visit (05/04/23 ) Functional Activities, Ea 15 (05/04/23 ) Gait Training, Ea 15 Min (05/04/23 ) Exercise Therap, Ea 15 Min (05/04/23 ) Patient Visit (05/04/23 ) Functional Activities, Ea 15 (05/04/23 ) Rehab Nursing Orders: Ongoing Assess. of Cognitive Status, Ongoing Assess. of Function Status, Bladder Management, Bladder Scan, Bladder Training, Bowel Management, Bowel Training, Disease Management & Educaiton, DVT Prophylaxis, Fall Prevention, Fluid/Electrolyte/Nutrition Mgmt, Infection Prevention, Medication Management & Education, Management of Risks & Complications, Management of Skin Intergrity, Nutrition Management, Pain Management, Patient/Family Support, Safety Management Intensity of Therapy to be met Patient to be seen: Min.3h per day/5 of 7d PT IPOC Problem List: Activity Tolerance, Functional Strength, Safety, Balance, Gait, Transfer, Bed Mobility, ROM Treatment Plan: Continue Plan of Care Bed Mobility, Education, Functional Activity Malika, Functional Strength, Group Therapy, Gait, Safety, Therapeutic Exercise, Transfers Treatment Duration: May 17, 2023 Frequency: At least 5 of 7 days/Wk (IRF) Estimated Hrs Per Day: 1.5 hours per day OT IPOC Problems: Decreased Activ Tolerance, Decreased UE Strength, Impaired Funct Balance, Impaired I ADL's, Impaired Self-Care Skills OT Treatment, Training and Edu: Yes Plan of Care: ADL Retraining, Functional Mobility, Group Exercise/Act as Ind, UE Funct Exercise/Act, UE Neuromus Re-Ed/Coord Treatment Duration: May 27, 2023 Frequency: At least 5 of 7 days/Wk (IRF) Estimated Hrs Per Day: 1.[address] IPOC Speech Therapy Treatment Plan: Discontinue ST Treatment Duration: May 04, 2023 Frequency: Modified Program (IRF) Estimated Hrs Per Day: Other Enterprise Analyst/Case Mgmt Enterprise Analyst/Case Managemen: Discharge Planning Dietitian/Computer Support Analyst Dietitian/Computer Support Analyst to monitor nutritional status and make changes and/or recommendations as needed and work with speech pathology on dietary upgrades as the occur. Physician IPOC Medical Issues being managed closely and that require the 24 hour availability of a physician: Recent fall with high risk for more falls and right arm pain with further disability along with elevated BP without dx of HTN will need close monitoring in order to prevent further decline Medical Issues: Bowel/Bladder Function, DVT Prophylaxis, Falls Precautions, Fluid/Electrolyte/Nutrition Balance, Infection Protection, Pain Management, Weight Bearing Precautions Brief Synthesis of Preadmission Screen, Post-Admission Evaluation, and Therapy Evaluations: PT OT will focus on regaining function with the use of hemiwalker and quad cane in order to provide stability while increasing independence in ADL's and supporting injured dominant arm Medical Prognosis: Good Anticipated Length of Stay: 7 days BERKLEY VEGA DO May 04, 2023 10:06
--- NOTE | 2023-05-04 13:32 | Occupational Ther Daily Note ---
OT Current Status-Daily Note Subjective Pt agreeable to OT tx. ADL-Treatment Therapy Code Descriptions/Definitions Functional [place] Measure: 0=Not Assessed/NA 4=Minimal Assistance 1=Total Assistance 5=Supervision or Setup 2=Maximal Assistance 6=Modified [place] 3=Moderate Assistance 7=Complete IndependenceSCALE: Activities may be completed with or without assistive devices. 9-Plktrumspu-rfbypdw completes the activity by him/herself with no assistance from a helper. 5-Set-up or Clean-up Assistance-helper sets up or cleans up; patient completes activity. [place] assists only prior to or following the activity. 4-Supervision or Touching Assistance-helper provides verbal cues and/or touching/steadying and/or contact guard assistance as patient completes activity. Assistance may be provided throughout the activity or intermittently. 3-Partial/Moderate Assistance-helper does LESS THAN HALF the effort. [place] lifts, holds or supports trunk or limbs, but provides less than half the effort. 2-Substantial/Maximal Assistance-helper does MORE THAN HALF the effort. [place] lifts or holds trunk or limbs and provides more than half the effort. 2-Ypgnttsee-syqsef does ALL the effort. Patient does none of the effort to complete the activity. Or, the assistance of 2 or more helpers is required for the patient to complete the activity. If activity was not attempted, code reason: 7-Patient Refused. 9-Not Applicable-not attempted and the patient did not perform the activity before the current illness, exacerbation or injury. 10-Not Attempted due to Environmental Limitations-(lack of equipment, weather restraints, etc.). 88-Not Attempted due to Medical Conditions or Safety Concerns. Eating (QC): 5 Oral Hygiene (QC): 4 (SBA standing at sink) Upper Body Dressing (QC): 3 (mod A donning/doffing shirt. Total assist with sling.) Toileting Hygiene (QC): 4 (SBA) Toilet Transfer (QC): 4 (SBA) Other Treatment Pt in recliner, agreeable to OT Tx. Pt doffed shirt and education provided on techniques for donning/doffing overhead shirt. OT educated pt on proper positioning of sling and assisted pt with positioning sling to comfort. Education provided on importance of using hemiwalker for stability, pt then agreeable to using hemiwalker. Pt used hemiwalker to transfer into bathroom and onto toilet. Pt completed toileting with SBA. Pt stood at sink to complete grooming tasks, SBA. Pt used hemiwalker to perform functional mobility to therapy gym, SBA. Pt required VCs to keep AD to L side as pt had a tendency to place walker in front of her and ended up kicking device. Pt provided with heavy resistance (green) therapy sponge. Pt completed x15 reps BUEs groutman squeezes, and thumb opposition to each finger. Pt returned to room using dimas walker, SBA, transferring to recliner. Pt positioned to comfort. Post tx, pt in recliner, call light in reach and all needs met. Education OT Patient Education: Correct positioning, Energy conservation, Modified ADL techniques, Progress toward Goal/Update tx plan, Purpose of tx/functional activities, Rehab process Teaching Recipient: Patient Teaching Methods: Discussion Response to Teaching: Verbalize Understanding OT Director Consumer Affairs Goals Halfway Goals Time Frame: May 27, 2023 Acute change in mental status: 0 Inattention: 1 Disorganized thinkin Altered level of consciousness: 0 Eating (QC): 6 Oral Hygiene (QC): 6 Toileting Hygiene (QC): 6 Shower/Bathe Self (QC): 6 Upper Body Dressing (QC): 6 Lower Body Dressing (QC): 6 On/Off Footwear (QC): 6 Additional Goals: 1-Demonstrate ADL Tasks, 2-Verbalize Understanding, 3- ImproveStrength/Malika 1=Demonstrate adherence to instructed precautions during ADL tasks. 2=Patient will verbalize/demonstrate understanding of assistive devices/modifications for ADL. 3=Patient will improve strength/tolerance for activity to enable patient to perform ADL's. OT Education/Plan Problem List/Assessment Assessment: Decreased Activ Tolerance, Decreased UE Strength, Impaired Funct Balance, Impaired I ADL's, Impaired Self-Care Skills Discharge Recommendations Plan/Recommendations: Continue POC Treatment Plan/Plan of Care Patient would benefit from OT for education, treatment and training to promote independence in ADL's, mobility, safety and/or upper extremity function for ADL's. Plan of Care: ADL Retraining, Functional Mobility, Group Exercise/Act as Ind, UE Funct Exercise/Act, UE Neuromus Re-Ed/Coord Treatment Duration: May 27, 2023 Frequency: At least 5 of 7 days/Wk (IRF) Estimated Hrs Per Day: 1.5 hours per day Agreement: Yes Rehab Potential: Fair Time Start Time: 10:25 Stop Time: 11:30 DATE: May 04, 2023 Total Time Billed (hr/min): 65 Billed Treatment Time 1, ADL 3 (45'), EX (20') PAUL BARBER OT May 04, 2023 13:32
--- NOTE | 2023-05-04 13:33 | Occupational Ther Daily Note ---
OT Current Status-Daily Note Subjective Pt agreeable to OT tx. ADL-Treatment Therapy Code Descriptions/Definitions Functional [place] Measure: 0=Not Assessed/NA 4=Minimal Assistance 1=Total Assistance 5=Supervision or Setup 2=Maximal Assistance 6=Modified [place] 3=Moderate Assistance 7=Complete IndependenceSCALE: Activities may be completed with or without assistive devices. 4-Ikvzgkqxnd-znnmtpy completes the activity by him/herself with no assistance from a helper. 5-Set-up or Clean-up Assistance-helper sets up or cleans up; patient completes activity. [place] assists only prior to or following the activity. 4-Supervision or Touching Assistance-helper provides verbal cues and/or touching/steadying and/or contact guard assistance as patient completes activity. Assistance may be provided throughout the activity or intermittently. 3-Partial/Moderate Assistance-helper does LESS THAN HALF the effort. [place] lifts, holds or supports trunk or limbs, but provides less than half the effort. 2-Substantial/Maximal Assistance-helper does MORE THAN HALF the effort. [place] lifts or holds trunk or limbs and provides more than half the effort. 8-Fptsudmuc-ldgfkv does ALL the effort. Patient does none of the effort to complete the activity. Or, the assistance of 2 or more helpers is required for the patient to complete the activity. If activity was not attempted, code reason: 7-Patient Refused. 9-Not Applicable-not attempted and the patient did not perform the activity before the current illness, exacerbation or injury. 10-Not Attempted due to Environmental Limitations-(lack of equipment, weather restraints, etc.). 88-Not Attempted due to Medical Conditions or Safety Concerns. Eating (QC): 5 Toileting Hygiene (QC): 4 (sba) Toilet Transfer (QC): 4 Other Treatment Pt in recliner, agreeable to tx. Pt used hemiwalker to transfer into bathroom and onto toilet. Pt required VCs for proper technique with hemiwalker. Pt completed toileting with SBA, increased time required. Pt returned to recliner. OT provided pt with written HEP for RUE wrist/fingers, pt completed x15 reps wrist circles, wrist flexion/extension, and finger pumps. Pt asking about exercises to complete at elbow. OT to get further clarifications on protocol from orthopedic workday consultant prior to issuing elbow exercises to pt, she verbalized understanding. Copy of wrist/hand exercises left with pt. Post tx, pt in recliner, call light in reach and all needs met. Education OT Patient Education: Correct positioning, Energy conservation, Exercise program, Modified ADL techniques, Progress toward Goal/Update tx plan, Rehab process Teaching Recipient: Patient Teaching Methods: Discussion Response to Teaching: Verbalize Understanding OT Retirement Goals Retirement Goals Time Frame: May 27, 2023 Acute change in mental status: 0 Inattention: 1 Disorganized thinkin Altered level of consciousness: 0 Eating (QC): 6 Oral Hygiene (QC): 6 Toileting Hygiene (QC): 6 Shower/Bathe Self (QC): 6 Upper Body Dressing (QC): 6 Lower Body Dressing (QC): 6 On/Off Footwear (QC): 6 Additional Goals: 1-Demonstrate ADL Tasks, 2-Verbalize Understanding, 3- ImproveStrength/Malika 1=Demonstrate adherence to instructed precautions during ADL tasks. 2=Patient will verbalize/demonstrate understanding of assistive devices/modifications for ADL. 3=Patient will improve strength/tolerance for activity to enable patient to perform ADL's. OT Education/Plan Problem List/Assessment Assessment: Decreased Activ Tolerance, Decreased UE Strength, Impaired Funct Balance, Impaired I ADL's, Impaired Self-Care Skills, Restricted Funct UE ROM Discharge Recommendations Plan/Recommendations: Continue POC Treatment Plan/Plan of Care Patient would benefit from OT for education, treatment and training to promote independence in ADL's, mobility, safety and/or upper extremity function for ADL's. Plan of Care: ADL Retraining, Functional Mobility, Group Exercise/Act as Ind, UE Funct Exercise/Act, UE Neuromus Re-Ed/Coord Treatment Duration: May 27, 2023 Frequency: At least 5 of 7 days/Wk (IRF) Estimated Hrs Per Day: 1.5 hours per day Agreement: Yes Rehab Potential: Fair Time Start Time: 13:00 Stop Time: 13:30 DATE: May 04, 2023 Total Time Billed (hr/min): 30 Billed Treatment Time 1, ADL (15'), EX (15') PAUL BARBER OT May 04, 2023 13:33
--- NOTE | 2023-05-04 16:37 | Physical Therapy Daily Note ---
PT Daily Note-Current Subjective Pt sitting in recliner visiting w/friend upon arrival. Pt agrees to PT. Pain Numeric Pain Scale: 6 Location: Right Location Body Site: Arm Pain Description: Burning Section J - Health Conditions 1. Rarely or not at all 2. Occasionally 3. Frequently 4. Almost constantly 8. Unable to answer Pain Effect on Sleep: 3 Pain Interference with Therapy: 3 Pain Interference w/Day-to-Day: 3 Mental Status Patient Orientation: Person, Confused, Place Attachments: Other-See Comments (Sling for R UE) Transfers SCALE: Activities may be completed with or without assistive devices. 9-Hkaeihprvm-ywlubew completes the activity by him/herself with no assistance from a helper. 5-Set-up or Clean-up Assistance-helper sets up or cleans up; patient completes activity. [place] assists only prior to or following the activity. 4-Supervision or Touching Assistance-helper provides verbal cues and/or touching/steadying and/or contact guard assistance as patient completes activity. Assistance may be provided throughout the activity or intermittently. 3-Partial/Moderate Assistance-helper does LESS THAN HALF the effort. [place] lifts, holds or supports trunk or limbs, but provides less than half the effort. 2-Substantial/Maximal Assistance-helper does MORE THAN HALF the effort. [place] lifts or holds trunk or limbs and provides more than half the effort. 9-Quifqlrup-qtngpd does ALL the effort. Patient does none of the effort to complete the activity. Or, the assistance of 2 or more helpers is required for the patient to complete the activity. If activity was not attempted, code reason: 7-Patient Refused. 9-Not Applicable-not attempted and the patient did not perform the activity before the current illness, exacerbation or injury. 10-Not Attempted due to Environmental Limitations-(lack of equipment, weather restraints, etc.). 88-Not Attempted due to Medical Conditions or Safety Concerns. Weight Bearing Weight Bearing/Tolerated Weight Bearing/Tolerated Treatments Pt and friend had questions over HEP, progress being made, SNF vs home, Durable Power of National Account Manager & how it can be obtained so friend can assist w/decisions being made. Pt resting and both visiting at end of tx. All needs met, call light in hand. Assessment Current Status: Fair Progress Pt felt more at ease after tx finished. PT Correction Goals Cap And Stud Machine Operator Goals PT Cap And Stud Machine Operator Goals Time Frame: May 17, 2023 Roll Left & Right (QC): 88 Sit to Lying (QC): 6 Lying-Sitting on Side/Bed(QC): 6 Sit to Stand (QC): 6 Chair/Iae-vd-Ufaen Xfer(QC): 6 Toilet Transfer (QC): 6 Car Transfer (QC): 5 Does the Patient Walk: Yes Walk 10 feet (QC): 6 Walk 50ft with 2 Turns (QC): 6 Walk 150 ft (QC): 6 Walking 10ft on Uneven Surface: 6 1 Step (curb) (QC): 4 4 Steps (QC): 4 12 Steps (QC): 4 Picking up an Object (QC): 5 Does the Pt use WC or Scooter?: No Wheel 50 feet with 2 turns (QC: 9 Type: N/A Wheel 150 feet: 9 Type: N/A PT Plan Problem List Problem List: Activity Tolerance, Functional Strength, Gait Treatment/Plan Treatment Plan: Continue Plan of Care Treatment Plan: Bed Mobility, Education, Functional Activity Malika, Functional Strength, Group Therapy, Gait, Safety, Therapeutic Exercise, Transfers Treatment Duration: May 17, 2023 Frequency: 5 times per week Estimated Hrs Per Day: 1.5 hours per day Patient and/or Family Agrees t: Yes Safety Risks/Education Patient Education: Issued Written HEP, Correct Positioning, Safety Issues Teaching Recipient: Patient, Friend Teaching Methods: Discussion Response to Teaching: Verbalize Understanding Time Time In: 1400 Time Out: 1430 DATE: May 04, 2023 Total Billed Treatment Time: 30 Total Billed Treatment 1, FA x2 (30m) KATE CHRISTENSEN STRATEGY DIRECTOR May 04, 2023 16:37
[2023-05-04 20:20] VITALS: BP 127/67
[2023-05-05] MEDS: ACETAMINOPHEN 325 MG TABLET PO PRN ×2 (04:42→16:00)
[2023-05-05] MEDS: ENOXAPARIN 40 MG/0.4 ML SYRINGE SC SCH ×2 (04:42→16:00)
--- NOTE | 2023-05-05 07:44 | PM&R Progress Note ---
Subjective HPI/CC On Admission Date Seen by Provider: May 05, 2023 Time Seen by Provider: 12:00 Subjective/Events-last exam 05/05/2023: No major issues Pain is controlled No falls No pain when not moving 05/04/2023: Patient declined the splint ortho had provided her Not satisfied with the quad cane and refuses to use it Just wants to go to custodial so she can be "taken care of Review of Systems General: Fatigue, Malaise Objective Exam Vital Signs Vital Signs Date Time Temp Pulse Resp B/P (MAP) Pulse Ox O2 Delivery O2 Flow Rate FiO2 05/05/23 21:45 97 Room Air 05/05/23 20:15 36.5 65 16 122/77 (92) Capillary Refill : General Appearance: No Apparent Distress, WD/WN, Obese HEENT: PERRL/EOMI, Normal ENT Inspection, Pharynx Normal Neck: Full Range of Motion, Normal Inspection, Non Tender, Supple, Carotid Bruit Respiratory: Chest Non Tender, Lungs Clear, Normal Breath Sounds, No Accessory Muscle Use, No Respiratory Distress Cardiovascular: Regular Rate, Rhythm, No Edema, No Gallop, No JVD, No Murmur, Normal Peripheral Pulses Gastrointestinal: Normal Bowel Sounds, No Organomegaly, No Pulsatile Mass, Non Tender, Soft Back: Normal Inspection, No CVA Tenderness, No Vertebral Tenderness Extremity: Normal Capillary Refill, Normal Inspection, Normal Range of Motion (except right arm in sling), Non Tender, No Calf Tenderness, No Pedal Edema Neurologic/Psychiatric: Alert, Oriented x3, Normal Mood/Affect, missile pad mechanic 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 FIM Transfers Therapy Code Descriptions/Definitions Functional [place] Measure: 0=Not Assessed/NA 4=Minimal Assistance 1=Total Assistance 5=Supervision or Setup 2=Maximal Assistance 6=Modified [place] 3=Moderate Assistance 7=Complete IndependenceSCALE: Activities may be completed with or without assistive devices. 3-Itwnlfnwed-zlaxkcm completes the activity by him/herself with no assistance from a helper. 5-Set-up or Clean-up Assistance-helper sets up or cleans up; patient completes activity. [place] assists only prior to or following the activity. 4-Supervision or Touching Assistance-helper provides verbal cues and/or touching/steadying and/or contact guard assistance as patient completes activity. Assistance may be provided throughout the activity or intermittently. 3-Partial/Moderate Assistance-helper does LESS THAN HALF the effort. [place] lifts, holds or supports trunk or limbs, but provides less than half the effort. 2-Substantial/Maximal Assistance-helper does MORE THAN HALF the effort. [place] lifts or holds trunk or limbs and provides more than half the effort. 9-Wjngidytb-lvlift does ALL the effort. Patient does none of the effort to complete the activity. Or, the assistance of 2 or more helpers is required for the patient to complete the activity. If activity was not attempted, code reason: 7-Patient Refused. 9-Not Applicable-not attempted and the patient did not perform the activity before the current illness, exacerbation or injury. 10-Not Attempted due to Environmental Limitations-(lack of equipment, weather restraints, etc.). 88-Not Attempted due to Medical Conditions or Safety Concerns. Roll Left to Right (QC): 88 (NWB (R) shoulder/UE) Sit to Lying (QC): 4 (CGA to brace hip while patient lifted legs up onto bed.) Sit to Stand (QC): 4 Chair/Hdv-re-Nksyb Xfer(QC): 3 (Min (A) with hemiwalker) Car Transfer (QC): 3 (Min (A) to lift (L) LE into vehicle. Mod (A) to guard patient as she stood up from car with 1 foot still in car - discussed safety concern.) Gait Training Does the Patient Walk?: Yes Distance: 75' x2 Walk 10 feet (QC): 4 Walk 50 ft with 2 Turns(QC): 4 Walk 150 ft (QC): 4 Walking 10ft/uneven surface-QC: 3 (min (A) with hemiwalker) Gait Persons Needed: 1 Gait Assistive Device: Handheld Assist Wheelchair Training Does the Pt Use a Wheelchair?: No Wheel 50 ft with 2 turns (QC): 9 Wheel 150 ft (QC): 9 Stair Training 1 Step (curb) (QC): 3 (mod (A) with hemiwalker and max encouragement to attempt) 4 Steps (QC): 88 12 Steps (QC): 88 Balance Picking up an Object (QC): 88 (NT - fear of falling) ADL-Treatment Eating (QC): 5 Oral Hygiene (QC): 4 (SBA standing at sink) Shower/Bathe Self (QC): 3 (Assist with washing/drying abdominal pannus, LUE, BLE feet) Upper Body Dressing (QC): 3 (mod A donning/doffing shirt. Total assist with sling.) Lower Body Dressing (QC): 4 (SBA, increased time required) On/Off Footwear (QC): 3 (Mod A. Pt able to doff, assist to don gripper socks. ) Toileting Hygiene (QC): 4 (sba) Toilet Transfer (QC): 4 Assessment/Plan Assessment and Plan Assess & Plan/Chief Complaint Assessment: Right humerus fracture affecting dominant arm and hand Obesity Advanced age Falls Plan: PT OT AD use Monitor pain 05/04/2023: Refuses AD Refuses splint 05/05/2023: Monitor pain Pursue dispo (1) Right humeral fracture Status: Acute (2) Intractable pain (3) Fall on same level from tripping Status: Acute BERKLEY VEGA DO May 05, 2023 07:44
[2023-05-05 08:00] VITALS: BP 156/81
[2023-05-05] MEDS: DOCUSATE SODIUM 100 MG CAPSULE PO SCH ×2 (08:07→21:00)
[2023-05-05] MEDS: MICONAZOLE 2% POWDER 90 GM TOP SCH ×2 (08:07→21:00)
[2023-05-05] MEDS: SENNA W/DOCUSATE TABLET PO SCH ×2 (08:07→21:00)
[2023-05-05] MEDS: NYSTATIN CREAM 30 GM TUBE TP SCH ×3 (09:54→21:00)
[2023-05-05] MEDS ORDERED: HYDROCORTISONE 25 MG SUPPOSITORY PR PRN (11:00)
--- NOTE | 2023-05-05 11:55 | Physical Therapy Daily Note ---
PT Daily Note-Current Subjective Pt sitting in recliner upon arrival. Pt visiting w/Med Student. Pt agrees to PT for tx. Pain Section J - Health Conditions 1. Rarely or not at all 2. Occasionally 3. Frequently 4. Almost constantly 8. Unable to answer Pain Effect on Sleep: 3 Pain Interference with Therapy: 3 Pain Interference w/Day-to-Day: 3 Mental Status Patient Orientation: Person, Place, Situation Attachments: Other-See Comments (Sling for R UE) Transfers SCALE: Activities may be completed with or without assistive devices. 5-Gebvihsfut-ilqubyh completes the activity by him/herself with no assistance from a helper. 5-Set-up or Clean-up Assistance-helper sets up or cleans up; patient completes activity. [place] assists only prior to or following the activity. 4-Supervision or Touching Assistance-helper provides verbal cues and/or touching/steadying and/or contact guard assistance as patient completes activity. Assistance may be provided throughout the activity or intermittently. 3-Partial/Moderate Assistance-helper does LESS THAN HALF the effort. [place] lifts, holds or supports trunk or limbs, but provides less than half the effort. 2-Substantial/Maximal Assistance-helper does MORE THAN HALF the effort. [place] lifts or holds trunk or limbs and provides more than half the effort. 0-Paqmnwzed-mysrxn does ALL the effort. Patient does none of the effort to complete the activity. Or, the assistance of 2 or more helpers is required for the patient to complete the activity. If activity was not attempted, code reason: 7-Patient Refused. 9-Not Applicable-not attempted and the patient did not perform the activity before the current illness, exacerbation or injury. 10-Not Attempted due to Environmental Limitations-(lack of equipment, weather restraints, etc.). 88-Not Attempted due to Medical Conditions or Safety Concerns. Sit to Stand (QC): 4 Toilet Transfer (QC): 4 Weight Bearing Weight Bearing/Tolerated Weight Bearing/Tolerated Gait Training Does the Patient Walk?: Yes Distance: 150' Walk 10 feet (QC): 4 Walk 50 ft with 2 Turns(QC): 4 Walk 150 ft (QC): 4 Gait Assistive Device: Walker Robin Balance Picking up an Object (QC): 4 Exercises Seated Therapy Exercises: Ankle pumps, Long arc quads, Hip flexion, Hamstring Curls, Hip abd/add, Glut set Seated Reps: 10 Treatments [id number]: Pt completes Seated EX then TF to Standing. Pt toilets using UPSETTER HELPER but is instructed that she needs to use Robin Walker for safety. OT arrives at this point. [id number] OT/PT co-treat due to skill of 2 clinicians required which a rehabilitation team lead could not perform in order to coordinate UE/LEs, decrease fall risk and to focus on higher level balance challenges. OT focused on UE placement and cues for sequencing and safety. PT focused on LE placement, gross overall movement, transfer and mobility. Pt educated on proper use and importance of AD while performing mobility. Staff report pt not wanting to use recommended AD in her room, and preferring to transfer with hand held assistance. Pt educated that she lives home alone, so it is important to use recommended device for safety and to get used to device prior to discharging, she agreed to using Robin Walker throughout tx. Pt used Robin Walker to perform functional mobility to therapy gym. Pt stood at EOB, participating in "ladder golf" task, tossing balls with L UE, then retrieving the tossed balls using Robin Walker. CGA-SBA throughout task and retrieval. Assessment Current Status: Fair Progress Pt intentionally tries to to lose balance after stating "I don't like using this Walker (Robin Walker)". Pt needs occasional RB. PT Network Account Manager Goals Network Account Manager Goals PT Skilled Nursing Goals Time Frame: May 17, 2023 Roll Left & Right (QC): 88 Sit to Lying (QC): 6 Lying-Sitting on Side/Bed(QC): 6 Sit to Stand (QC): 6 Chair/Mgt-fa-Lflxp Xfer(QC): 6 Toilet Transfer (QC): 6 Car Transfer (QC): 5 Does the Patient Walk: Yes Walk 10 feet (QC): 6 Walk 50ft with 2 Turns (QC): 6 Walk 150 ft (QC): 6 Walking 10ft on Uneven Surface: 6 1 Step (curb) (QC): 4 4 Steps (QC): 4 12 Steps (QC): 4 Picking up an Object (QC): 5 Does the Pt use WC or Scooter?: No Wheel 50 feet with 2 turns (QC: 9 Type: N/A Wheel 150 feet: 9 Type: N/A PT Plan Problem List Problem List: Activity Tolerance, Safety Treatment/Plan Treatment Plan: Continue Plan of Care Treatment Plan: Bed Mobility, Education, Functional Activity Malika, Functional Strength, Group Therapy, Gait, Safety, Therapeutic Exercise, Transfers Treatment Duration: May 17, 2023 Frequency: 5 times per week Estimated Hrs Per Day: 1.5 hours per day Patient and/or Family Agrees t: Yes Safety Risks/Education Patient Education: Gait Training, Correct Positioning, Safety Issues Teaching Recipient: Patient Teaching Methods: Discussion Response to Teaching: Reinforcement Needed Time Time In: 1000 Time Out: 1100 DATE: May 05, 2023 Total Billed Treatment Time: 60 Total Billed Treatment Co-treat w/OT for 30m ([id number]) 1, EX x2 (25m) & FA x2 (35m) KATE CHRISTENSEN PTA May 05, 2023 11:55
--- NOTE | 2023-05-05 14:28 | Occupational Ther Daily Note ---
OT Current Status-Daily Note Subjective Pt agreeable to therapy tx. Did not verbalize pain rating during tx Mental Status/Objective Patient Orientation: Normal For Age Attachments: Other-See Comments (R UE sling) ADL-Treatment Therapy Code Descriptions/Definitions Functional [place] Measure: 0=Not Assessed/NA 4=Minimal Assistance 1=Total Assistance 5=Supervision or Setup 2=Maximal Assistance 6=Modified [place] 3=Moderate Assistance 7=Complete IndependenceSCALE: Activities may be completed with or without assistive devices. 4-Jnnwfammnu-ldjkeme completes the activity by him/herself with no assistance from a helper. 5-Set-up or Clean-up Assistance-helper sets up or cleans up; patient completes activity. [place] assists only prior to or following the activity. 4-Supervision or Touching Assistance-helper provides verbal cues and/or touching/steadying and/or contact guard assistance as patient completes activity. Assistance may be provided throughout the activity or intermittently. 3-Partial/Moderate Assistance-helper does LESS THAN HALF the effort. [place] lifts, holds or supports trunk or limbs, but provides less than half the effort. 2-Substantial/Maximal Assistance-helper does MORE THAN HALF the effort. [place] lifts or holds trunk or limbs and provides more than half the effort. 8-Tyebnatqo-iqjusy does ALL the effort. Patient does none of the effort to complete the activity. Or, the assistance of 2 or more helpers is required for the patient to complete the activity. If activity was not attempted, code reason: 7-Patient Refused. 9-Not Applicable-not attempted and the patient did not perform the activity before the current illness, exacerbation or injury. 10-Not Attempted due to Environmental Limitations-(lack of equipment, weather restraints, etc.). 88-Not Attempted due to Medical Conditions or Safety Concerns. Eating (QC): 5 (set up) Oral Hygiene (QC): 4 (Supervision standing at sink.) On/Off Footwear: 6 (IND with slip on shoes.) Toileting Hygiene (QC): 4 (Supervision) Toilet Transfer (QC): 4 (Supervision) Other Treatment [id number] OT/PT cotreat due to skill of 2 clinicians required which a rehabilitation worker could not perform in order to coordinate UE/LEs, decrease fall risk and to focus on higher level balance challenges. OT focused on UE placement and cues for sequencing and safety. PT focused on LE placement, gross overall movement, transfer and mobility. Pt educated on proper use and importance of AD while performing mobility. Staff report pt not wanting to use recommended AD in her room, and preferring to transfer with hand held assistance. Pt educated that she lives home alone, so it is important to use recommended device for safety and to get used to device prior to discharging, she agreed to using hemiwalker throughout tx. Pt used hemiwalker to perform functional mobility to therapy gym. Pt stood at EOB, participating in "ladder golf" task, tossing balls with LUE, then retrieving the tossed balls using hemiwalker. SBA throughout task and retrieval, min-mod VCs for safety. [id number] OT Tx: OT provided education on AE for LE dressing. Pt states she has a senior account executive at home but it is too long, she trialed ~25" senior account executive with LE Dressing and was able to thread BLEs into pants and doff pants over feet with SBA (min VCs). Pt demonstrated ability to doff/don slip on shoes without AE. Pt educated on LH sponge and adaptive techniques to wash RUE and between her toes, she demonstrated understanding. Pt shown dressing stick, LH shoe horn and sock aide that comes in standard hip kit, pt verbalized understanding of these devices but indicates she wouldn't benefit from these at this time. Pt used hemiwalker to return to her room, SBA. Pt completed grooming tasks standing at sink with supervision, then used hemiwalker to navigate room to gather clothes from tomorrow and perform various home management tasks. Pt often left hemiwalker behind requiring close SBA and VCs to keep using walker. Pt returned to recliner, ice pack applied to R wrist and shoulder and pt positioned to comfort. Phone number to local DME provided to pt in order for pt to acquire hip kit. Pos t tx, pt in recliner, call light in reach and all needs met. Education OT Patient Education: Correct positioning, Energy conservation, Exercise program, Modified ADL techniques, Progress toward Goal/Update tx plan, Purpose of tx/functional activities, Rehab process, Safety issues, Transfer techniques, Use of adapted equipment Teaching Recipient: Patient Teaching Methods: Discussion Response to Teaching: Verbalize Understanding, Reinforcement Needed OT Jail Goals Jail Goals Time Frame: May 27, 2023 Acute change in mental status: 0 Inattention: 1 Disorganized thinkin Altered level of consciousness: 0 Eating (QC): 6 Oral Hygiene (QC): 6 Toileting Hygiene (QC): 6 Shower/Bathe Self (QC): 6 Upper Body Dressing (QC): 6 Lower Body Dressing (QC): 6 On/Off Footwear (QC): 6 Additional Goals: 1-Demonstrate ADL Tasks, 2-Verbalize Understanding, 3-ImproveStrength/Malika 1=Demonstrate adherence to instructed precautions during ADL tasks. 2=Patient will verbalize/demonstrate understanding of assistive devices/modifications for ADL. 3=Patient will improve strength/tolerance for activity to enable patient to perform ADL's. OT Education/Plan Problem List/Assessment Assessment: Decreased Activ Tolerance, Decreased Safety Aware, Decreased UE Strength, Impaired Funct Balance, Impaired I ADL's, Impaired Self-Care Skills, Restricted Funct UE ROM Discharge Recommendations Plan/Recommendations: Continue POC Treatment Plan/Plan of Care Patient would benefit from OT for education, treatment and training to promote independence in ADL's, mobility, safety and/or upper extremity function for ADL's. Plan of Care: ADL Retraining, Functional Mobility, Group Exercise/Act as Ind, UE Funct Exercise/Act, UE Neuromus Re-Ed/Coord Treatment Duration: May 27, 2023 Frequency: At least 5 of 7 days/Wk (IRF) Estimated Hrs Per Day: 1.5 hours per day Agreement: Yes Rehab Potential: Fair Time Start Time: 10:30 Stop Time: 12:00 DATE: May 05, 2023 Total Time Billed (hr/min): 90 Billed Treatment Time cotreat x30', OT tx x60' 1, FA 2 (30'), ADL 4 (60') PAUL BARBER OT May 05, 2023 14:28
--- NOTE | 2023-05-05 16:10 | Physical Therapy Daily Note ---
PT Daily Note-Current Subjective Patient had multiple questions re. AD. Her "guardian"/friend was present for this conversation. Discussed (as at eval) that patient is much more stable with hemiwalker than SPC/Hurrycane. Demonstrated that it offers much more support, especially with her difficulty with stepping over objects(cause of 1 fall at fela e) and stepping up/down 1 step(cause of 1 fall at home with step from living room to kitchen). Patient states she has had a weak left wrist since she was a child - educated that using the cane requires more strength due to less stability provided by the device compared to hemiwalker. Friend/guardian understands and agrees with hemiwalker use. Pain Section J - Health Conditions 1. Rarely or not at all 2. Occasionally 3. Frequently 4. Almost constantly 8. Unable to answer Pain Effect on Sleep: 3 Pain Interference with Therapy: 3 Pain Interference w/Day-to-Day: 3 Transfers SCALE: Activities may be completed with or without assistive devices. 8-Jmvbeggaey-rmjjhov completes the activity by him/herself with no assistance from a helper. 5-Set-up or Clean-up Assistance-helper sets up or cleans up; patient completes activity. [place] assists only prior to or following the activity. 4-Supervision or Touching Assistance-helper provides verbal cues and/or touching/steadying and/or contact guard assistance as patient completes activity. Assistance may be provided throughout the activity or intermittently. 3-Partial/Moderate Assistance-helper does LESS THAN HALF the effort. [place] lifts, holds or supports trunk or limbs, but provides less than half the effort. 2-Substantial/Maximal Assistance-helper does MORE THAN HALF the effort. [place] lifts or holds trunk or limbs and provides more than half the effort. 2-Zpocyhuxn-yuxhln does ALL the effort. Patient does none of the effort to complete the activity. Or, the assistance of 2 or more helpers is required for the patient to complete the activity. If activity was not attempted, code reason: 7-Patient Refused. 9-Not Applicable-not attempted and the patient did not perform the activity before the current illness, exacerbation or injury. 10-Not Attempted due to Environmental Limitations-(lack of equipment, weather restraints, etc.). 88-Not Attempted due to Medical Conditions or Safety Concerns. Weight Bearing Weight Bearing/Tolerated Weight Bearing/Tolerated Exercises HEP created and provided to patient to LE exercise in sitting: DF/PF alternating with feet on floor x 10 (B) LAQ x :05 sec holds, x 10 (B) Ham curls with YTB x 10 (B) (YTB left with patient) Hip flexion (marches) alternating legs with equal height demonstrated (L)vs (R), x 10 (B) Hip abd/add with sustained LAQ x 10 (B) Isometric hip abduction/blanket roll squeeze x 10. Patient stated multiple times that she could not move her (L) LE, however demonstrated equal ROM/strength on (L) LE vs (R). Assessment Patient continues to argue against hemiwalker. Therapist continues to recommend HW over SPC/Hurrycane due to her upright mobility/safety issues and frequent falls at home. PT [place] Goals [place]us[place] Goals PT [place]usher Goals Time Frame: May 17, 2023 Roll Left & Right (QC): 88 Sit to Lying (QC): 6 Lying-Sitting on Side/Bed(QC): 6 Sit to Stand (QC): 6 Chair/Hnc-zm-Bbdhq Xfer(QC): 6 Toilet Transfer (QC): 6 Car Transfer (QC): 5 Does the Patient Walk: Yes Walk 10 feet (QC): 6 Walk 50ft with 2 Turns (QC): 6 Walk 150 ft (QC): 6 Walking 10ft on Uneven Surface: 6 1 Step (curb) (QC): 4 4 Steps (QC): 4 12 Steps (QC): 4 Picking up an Object (QC): 5 Does the Pt use WC or Scooter?: No Wheel 50 feet with 2 turns (QC: 9 Type: N/A Wheel 150 feet: 9 Type: N/A PT Plan Problem List Problem List: Activity Tolerance, Functional Strength, Safety, Balance, Gait, Transfer Treatment/Plan Treatment Plan: Continue Plan of Care Treatment Plan: Bed Mobility, Education, Functional Activity Malika, Functional Strength, Group Therapy, Gait, Safety, Therapeutic Exercise, Transfers Treatment Duration: May 17, 2023 Frequency: 5 times per week Estimated Hrs Per Day: 1.5 hours per day Patient and/or Family Agrees t: Yes Discharge Recommendations Equpiment Recommendations-D/C: Other, Please Explain (Hemiwalker) Time Time In: 1400 Time Out: 1430 DATE: May 05, 2023 Total Billed Treatment Time: 30 Total Billed Treatment Ex 2 Felicia Garcia PT May 05, 2023 16:10
[2023-05-05 20:15] VITALS: BP 122/77
[2023-05-06] MEDS: ENOXAPARIN 40 MG/0.4 ML SYRINGE SC SCH ×2 (04:30→16:14)
[2023-05-06] MEDS: ACETAMINOPHEN 325 MG TABLET PO PRN (06:40)
[2023-05-06 08:00] VITALS: BP 119/74
[2023-05-06] MEDS: DOCUSATE SODIUM 100 MG CAPSULE PO SCH ×2 (09:02→21:10)
[2023-05-06] MEDS: SENNA W/DOCUSATE TABLET PO SCH ×2 (09:02→21:10)
[2023-05-06] MEDS: MICONAZOLE 2% POWDER 90 GM TOP SCH ×2 (09:08→21:10)
[2023-05-06] MEDS: NYSTATIN CREAM 30 GM TUBE TP SCH ×3 (09:08→21:09)
--- NOTE | 2023-05-06 10:42 | PM&R Progress Note ---
Subjective HPI/CC On Admission Date Seen by Provider: May 06, 2023 Time Seen by Provider: 10:45 Subjective/Events-last exam 05/06/2023: Patient doing a lot better Pain medication is requested Lozenges will be ordered No other falls 05/05/2023: No major issues Pain is controlled No falls No pain when not moving 05/04/2023: Patient declined the splint ortho had provided her Not satisfied with the quad cane and refuses to use it Just wants to go to [facility] so she can be "taken care of Review of Systems General: Fatigue, Malaise Objective Exam Vital Signs Vital Signs Date Time Temp Pulse Resp B/P (MAP) Pulse Ox O2 Delivery O2 Flow Rate FiO2 05/06/23 21:00 98 Room Air 05/06/23 20:00 37.2 78 20 135/60 (85) Capillary Refill : General Appearance: No Apparent Distress, WD/WN, Obese HEENT: PERRL/EOMI, Normal ENT Inspection, Pharynx Normal Neck: Full Range of Motion, Normal Inspection, Non Tender, Supple, Carotid Bruit Respiratory: Chest Non Tender, Lungs Clear, Normal Breath Sounds, No Accessory Muscle Use, No Respiratory Distress Cardiovascular: Regular Rate, Rhythm, No Edema, No Gallop, No JVD, No Murmur, Normal Peripheral Pulses Gastrointestinal: Normal Bowel Sounds, No Organomegaly, No Pulsatile Mass, Non Tender, Soft Back: Normal Inspection, No CVA Tenderness, No Vertebral Tenderness Extremity: Normal Capillary Refill, Normal Inspection, Normal Range of Motion (except right arm in sling), Non Tender, No Calf Tenderness, No Pedal Edema Neurologic/Psychiatric: Alert, Oriented x3, Normal Mood/Affect, textile screen maker 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 [facility] Transfers Therapy Code Descriptions/Definitions Functional [place] Measure: 0=Not Assessed/NA 4=Minimal Assistance 1=Total Assistance 5=Supervision or Setup 2=Maximal Assistance 6=Modified [place] 3=Moderate Assistance 7=Complete IndependenceSCALE: Activities may be completed with or without assistive devices. 9-Ouxzthlfxd-cumjarm completes the activity by him/herself with no assistance from a helper. 5-Set-up or Clean-up Assistance-helper sets up or cleans up; patient completes activity. [place] assists only prior to or following the activity. 4-Supervision or Touching Assistance-helper provides verbal cues and/or touching/steadying and/or contact guard assistance as patient completes activity. Assistance may be provided throughout the activity or intermittently. 3-Partial/Moderate Assistance-helper does LESS THAN HALF the effort. [place] lifts, holds or supports trunk or limbs, but provides less than half the effort. 2-Substantial/Maximal Assistance-helper does MORE THAN HALF the effort. [place] lifts or holds trunk or limbs and provides more than half the effort. 9-Ktzvjtvta-mafcok does ALL the effort. Patient does none of the effort to complete the activity. Or, the assistance of 2 or more helpers is required for the patient to complete the activity. If activity was not attempted, code reason: 7-Patient Refused. 9-Not Applicable-not attempted and the patient did not perform the activity before the current illness, exacerbation or injury. 10-Not Attempted due to Environmental Limitations-(lack of equipment, weather restraints, etc.). 88-Not Attempted due to Medical Conditions or Safety Concerns. Roll Left to Right (QC): 88 (NWB (R) shoulder/UE) Sit to Lying (QC): 4 (CGA to brace hip while patient lifted legs up onto bed.) Sit to Stand (QC): 4 Chair/Bgx-pq-Bpwaw Xfer(QC): 3 (Min (A) with hemiwalker) Car Transfer (QC): 3 (Min (A) to lift (L) LE into vehicle. Mod (A) to guard patient as she stood up from car with 1 foot still in car - discussed safety concern.) Gait Training Does the Patient Walk?: Yes Distance: 150' Walk 10 feet (QC): 4 Walk 50 ft with 2 Turns(QC): 4 Walk 150 ft (QC): 4 Walking 10ft/uneven surface-QC: 3 (min (A) with hemiwalker) Gait Persons Needed: 1 Gait Assistive Device: Walker Robin Wheelchair Training Does the Pt Use a Wheelchair?: No Wheel 50 ft with 2 turns (QC): 9 Wheel 150 ft (QC): 9 Stair Training 1 Step (curb) (QC): 3 (mod (A) with hemiwalker and max encouragement to attempt) 4 Steps (QC): 88 12 Steps (QC): 88 Balance Picking up an Object (QC): 4 ADL-Treatment Eating (QC): 5 (set up) Oral Hygiene (QC): 4 (Supervision standing at sink.) Shower/Bathe Self (QC): 3 (Assist with washing/drying abdominal pannus, LUE, BLE feet) Upper Body Dressing (QC): 3 (mod A donning/doffing shirt. Total assist with sling.) Lower Body Dressing (QC): 4 (SBA, increased time required) On/Off Footwear (QC): 6 (IND with slip on shoes.) Toileting Hygiene (QC): 4 (Supervision) Toilet Transfer (QC): 4 (Supervision) Assessment/Plan Assessment and Plan Assess & Plan/Chief Complaint Assessment: Right humerus fracture affecting dominant arm and hand Obesity Advanced age Falls Plan: PT OT AD use Monitor pain 05/04/2023: Refuses AD Refuses splint 05/05/2023: Monitor pain Pursue dispo 05/06/2023: Add pain medication Add lozenges (1) Right humeral fracture Status: Acute (2) Intractable pain (3) Fall on same level from tripping Status: Acute BERKLEY VEGA DO May 06, 2023 10:42
[2023-05-06] MEDS ORDERED: HYDROcodone/ACETAMINOPHEN 5 MG/325 MG TABLET PO NR (11:00)
--- NOTE | 2023-05-06 13:51 | Occupational Ther Daily Note ---
OT Current Status-Daily Note Subjective Pt agreeable to OT Tx, did not verbalize pain during tx. Mental Status/Objective Patient Orientation: Normal For Age Attachments: Other-See Comments (CHIDI sling) ADL-Treatment Therapy Code Descriptions/Definitions Functional [place] Measure: 0=Not Assessed/NA 4=Minimal Assistance 1=Total Assistance 5=Supervision or Setup 2=Maximal Assistance 6=Modified [place] 3=Moderate Assistance 7=Complete IndependenceSCALE: Activities may be completed with or without assistive devices. 2-Tlwcjzosdh-tcywvxb completes the activity by him/herself with no assistance from a helper. 5-Set-up or Clean-up Assistance-helper sets up or cleans up; patient completes activity. [place] assists only prior to or following the activity. 4-Supervision or Touching Assistance-helper provides verbal cues and/or touching/steadying and/or contact guard assistance as patient completes activity. Assistance may be provided throughout the activity or intermittently. 3-Partial/Moderate Assistance-helper does LESS THAN HALF the effort. [place] l ifts, holds or supports trunk or limbs, but provides less than half the effort. 2-Substantial/Maximal Assistance-helper does MORE THAN HALF the effort. [place] lifts or holds trunk or limbs and provides more than half the effort. 5-Azrzirnap-fosyeb does ALL the effort. Patient does none of the effort to complete the activity. Or, the assistance of 2 or more helpers is required for t he patient to complete the activity. If activity was not attempted, code reason: 7-Patient Refused. 9-Not Applicable-not attempted and the patient did not perform the activity before the current illness, exacerbation or injury. 10-Not Attempted due to Environmental Limitations-(lack of equipment, weather restraints, etc.). 88-Not Attempted due to Medical Conditions or Safety Concerns. Upper Body Dressing (QC): 3 (Mod A ) On/Off Footwear: 5 (Pt able to doff gripper socks and don slip on shoes afer set up) Toileting Hygiene (QC): 4 (SBA) Toilet Transfer (QC): 4 (SBA) Other Treatment Pt in recliner, agreeable to OT Tx. Pt declined showering on this date. Pt agreeable to donning shirt correctly with some encouragement (pt had shirt over LUE and head but didn't want to put it over RUE due to pain, pt's R side of chest/abdomen exposed due to RUE not being threaded through shirt). Pt educated on importance of hemiwalker due to her stating she doesn't want to use device. Pt used HW around room to tidy clothing and perform home management tasks, SBA with min VCs to continue use of hemiwalker. Pt transferred into bathroom, SBA, completed toileting, then washed hands at sink, SBA. Pt performed functional mobility to therapy gym, SBA. OT tx focused on increasing LUE fine motor coordi nation and strength. Pt used tongs to grasp small marbles, and place in tube in her R hand, following printed pattern. Pt able to follow patterns, self correcting errors as needed. Pt then removed beads from moderate resistance (red) theraputty, able to locate all beads without cues. Pt returned to her room, SBA using HW. OT provided education on LE swelling, encouraging pt to elev ate her legs to decrease the swelling. Pt trialed leg elevation via recliner but requests to have legs back on floor as soon as leg rest was raised. OT educated pt on benefits of tedhose, pt agreeable to trialing, OT informed nursing staff that pt would agree to tedhose. Pt required increased time to position to comfort, with OT assistance. Post tx, pt in recliner, call light in reach and all needs met. Education OT Patient Education: Correct positioning, Energy conservation, Modified ADL techniques, Progress toward Goal/Update tx plan, Purpose of tx/functional activities, Rehab process, Transfer techniques Teaching Recipient: Patient Teaching Methods: Discussion Response to Teaching: Verbalize Understanding, Reinforcement Needed OT Relationship Mgr Goals Relationship Mgr Goals Time Frame: May 27, 2023 Acute change in mental status: 0 Inattention: 1 Disorganized thinkin Altered level of consciousness: 0 Eating (QC): 6 Oral Hygiene (QC): 6 Toileting Hygiene (QC): 6 Shower/Bathe Self (QC): 6 Upper Body Dressing (QC): 6 Lower Body Dressing (QC): 6 On/Off Footwear (QC): 6 Additional Goals: 1-Demonstrate ADL Tasks, 2-Verbalize Understanding, 3- ImproveStrength/Malika 1=Demonstrate adherence to instructed precautions during ADL tasks. 2=Patient will verbalize/demonstrate understanding of assistive devices/modifications for ADL. 3=Patient will improve strength/tolerance for activity to enable patient to perform ADL's. OT Education/Plan Problem List/Assessment Assessment: Decreased Activ Tolerance, Decreased Safety Aware, Decreased UE Strength, Impaired Funct Balance, Impaired I ADL's, Impaired Self-Care Skills, Restricted Funct UE ROM Discharge Recommendations Plan/Recommendations: Continue POC Treatment Plan/Plan of Care Patient would benefit from OT for education, treatment and training to promote independence in ADL's, mobility, safety and/or upper extremity function for ADL's. Plan of Care: ADL Retraining, Functional Mobility, Group Exercise/Act as Ind, UE Funct Exercise/Act, UE Neuromus Re-Ed/Coord Treatment Duration: May 27, 2023 Frequency: At least 5 of 7 days/Wk (IRF) Estimated Hrs Per Day: 1.5 hours per day Agreement: Yes Rehab Potential: Fair Time Start Time: 10:30 Stop Time: 12:00 DATE: May 06, 2023 Total Time Billed (hr/min): 90 Billed Treatment Time 1, ADL 3 (45'), FA 3 (45') PAUL BARBER OT May 06, 2023 13:51
--- NOTE | 2023-05-06 15:56 | Physical Therapy Daily Note ---
PT Daily Note-Current Subjective Patient sitting in recliner with legs down when PT enters room. Patient pleasant and agreeable to session with reports of mild pain. Pain Section J - Health Conditions 1. Rarely or not at all 2. Occasionally 3. Frequently 4. Almost constantly 8. Unable to answer Pain Effect on Sleep: 3 Pain Interference with Therapy: 3 Pain Interference w/Day-to-Day: 3 Mental Status Patient Orientation: Person, Place, Time, Situation Transfers SCALE: Activities may be completed with or without assistive devices. 2-Ojvgiqfvfr-wfscvnm completes the activity by him/herself with no assistance from a helper. 5-Set-up or Clean-up Assistance-helper sets up or cleans up; patient completes a ctivity. [place] assists only prior to or following the activity. 4-Supervision or Touching Assistance-helper provides verbal cues and/or touching/steadying and/or contact guard assistance as patient completes activity. Assistance may be provided throughout the activity or intermittently. 3-Partial/Moderate Assistance-helper does LESS THAN HALF the effort. [place] lifts, holds or supports trunk or limbs, but provides less than half the effort. 2-Substantial/Maximal Assistance-helper does MORE THAN HALF the effort. [place] lifts or holds trunk or limbs and provides more than half the effort. 2-Wkbbpeirh-rowqvy does ALL the effort. Patient does none of the effort to complete the activity. Or, the assistance of 2 or more helpers is required for the patient to complete the activity. If activity was not attempted, code reason: 7-Patient Refused. 9-Not Applicable-not attempted and the patient did not perform the activity before the current illness, exacerbation or injury. 10-Not Attempted due to Environmental Limitations-(lack of equipment, weather restraints, etc.). 88-Not Attempted due to Medical Conditions or Safety Concerns. Patient participated in functional transfer practice with use of robin-walker focusing on improving performance, sequence, and safety with use of hemiwalker as AD. Patient educated on RUE positioning and maintaining NWB status at this time. Patient educated on therapeutic progression and intervention and purpose of performed interventions. Weight Bearing Weight Bearing/Tolerated Weight Bearing/Tolerated Gait Training Does the Patient Walk?: Yes Distance: 75' Walk 10 feet (QC): 4 Walk 50 ft with 2 Turns(QC): 3 Walk 150 ft (QC): 88 Walking 10ft/uneven surface-QC: 88 Gait Assistive Device: Walker Robin Patient participated in functional gait training with use of hemiwalker in LUE focusing on improving stepping mechanics, maintaining COG/FCO, amb stability and postural control and management of AD. Patient achieve 50ft, 60ft, 75ft, 25ft, hemiwalker CGA-[place] Wheelchair Training Does the Pt Use a Wheelchair?: No Type of Wheelchair: N/A Exercises Patient rode NuStep for 15 minutes on WL4 with LUE and BLE for improved functional strength, endurance and mobility. PT assist in positioning and monitoring of RUE for safety during therEx. Patient perform seated AROM of BLE at hip, knee and ankles including alternating march, LAQ, hip ABD/ADD march and ankle DF/PF x3 sets of 15 ea. Neuromuscular Patient progressed to unsupported standing balance, progressed to dynamic weight shifting followed by reaching in all functional planes with LUE as progressive dynamic balance challenge. Patient perform progressive static, unsupported standing balance challenge of unsupported standing with narrowing FCO - Normal >heels together >semi-tandem. Patient perform alternating 4" step tapping with forefoot progressed to heel x3 sets of 10 without UE support. Performed for improved functional balance, stability and reactive control. PT Correction Goals Skip Operator Goals PT Skip Operator Goals Time Frame: May 17, 2023 Roll Left & Right (QC): 88 Sit to Lying (QC): 6 Lying-Sitting on Side/Bed(QC): 6 Sit to Stand (QC): 6 Chair/Nho-id-Cknif Xfer(QC): 6 Toilet Transfer (QC): 6 Car Transfer (QC): 5 Does the Patient Walk: Yes Walk 10 feet (QC): 6 Walk 50ft with 2 Turns (QC): 6 Walk 150 ft (QC): 6 Walking 10ft on Uneven Surface: 6 1 Step (curb) (QC): 4 4 Steps (QC): 4 12 Steps (QC): 4 Picking up an Object (QC): 5 Does the Pt use WC or Scooter?: No Wheel 50 feet with 2 turns (QC: 9 Type: N/A Wheel 150 feet: 9 Type: N/A PT Plan Treatment/Plan Treatment Plan: Continue Plan of Care Treatment Plan: Bed Mobility, Education, Functional Activity Malika, Functional Strength, Group Therapy, Gait, Safety, Therapeutic Exercise, Transfers Treatment Duration: May 17, 2023 Frequency: 5 times per week Estimated Hrs Per Day: 1.5 hours per day Patient and/or Family Agrees t: Yes Time Time In: 1315 Time Out: 1445 DATE: May 06, 2023 Total Billed Treatment Time: 95 Total Billed Treatment 95 minute treatment 2 EX (30) 1 GT (20) 1 FA (20) 2 NM (25) LACIE BARNES PT May 06, 2023 15:56
[2023-05-06] MEDS: BENZOCAINE LOZENGES 1 EACH PO PRN (16:14)
[2023-05-06 20:00] VITALS: BP 135/60
[2023-05-06] MEDS: HYDROcodone/ACETAMINOPHEN 5 MG/325 MG TABLET PO PRN (21:19)
[2023-05-07] MEDS: ENOXAPARIN 40 MG/0.4 ML SYRINGE SC SCH ×2 (03:30→16:42)
--- NOTE | 2023-05-07 06:15 | PM&R Progress Note ---
Subjective HPI/CC On Admission Date Seen by Provider: May 07, 2023 Time Seen by Provider: 09:00 Subjective/Events-last exam 05/07/2023: Patient in a good mood Ready for [facility] discharge Moving around well 05/06/2023: Patient doing a lot better Pain medication is requested Lozenges will be ordered No other falls 05/05/2023: No major issues Pain is controlled No falls No pain when not moving 05/04/2023: Patient declined the splint ortho had provided her Not satisfied with the quad cane and refuses to use it Just wants to go to care home so she can be "taken care of Review of Systems General: Fatigue, Malaise Musculoskeletal: arm pain Objective Exam Vital Signs Vital Signs Date Time Temp Pulse Resp B/P (MAP) Pulse Ox O2 Delivery O2 Flow Rate FiO2 05/07/23 19:40 37.2 73 18 128/58 (81) 95 Room Air Capillary Refill : General Appearance: No Apparent Distress, WD/WN, Obese HEENT: PERRL/EOMI, Normal ENT Inspection, Pharynx Normal Neck: Full Range of Motion, Normal Inspection, Non Tender, Supple, Carotid Bruit Respiratory: Chest Non Tender, Lungs Clear, Normal Breath Sounds, No Accessory Muscle Use, No Respiratory Distress Cardiovascular: Regular Rate, Rhythm, No Edema, No Gallop, No JVD, No Murmur, Normal Peripheral Pulses Gastrointestinal: Normal Bowel Sounds, No Organomegaly, No Pulsatile Mass, Non Tender, Soft Back: Normal Inspection, No CVA Tenderness, No Vertebral Tenderness Extremity: Normal Capillary Refill, Normal Inspection, Normal Range of Motion (except right arm in sling), Non Tender, No Calf Tenderness, No Pedal Edema Neurologic/Psychiatric: Alert, Oriented x3, Normal Mood/Affect, 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 FIM Transfers Therapy Code Descriptions/Definitions Functional [place] Measure: 0=Not Assessed/NA 4=Minimal Assistance 1=Total Assistance 5=Supervision or Setup 2=Maximal Assistance 6=Modified [place] 3=Moderate Assistance 7=Complete IndependenceSCALE: Activities may be completed with or without assistive devices. 3-Vwctuuvugr-jkkghxe completes the activity by him/herself with no assistance from a helper. 5-Set-up or Clean-up Assistance-helper sets up or cleans up; patient completes activity. [place] assists only prior to or following the activity. 4-Supervision or Touching Assistance-helper provides verbal cues and/or touching/steadying and/or contact guard assistance as patient completes activity. Assistance may be provided throughout the activity or intermittently. 3-Partial/Moderate Assistance-helper does LESS THAN HALF the effort. [place] lifts, holds or supports trunk or limbs, but provides less than half the effort. 2-Substantial/Maximal Assistance-helper does MORE THAN HALF the effort. [place] lifts or holds trunk or limbs and provides more than half the effort. 1-Lpwvnqlor-rcmmke does ALL the effort. Patient does none of the effort to complete the activity. Or, the assistance of 2 or more helpers is required for the patient to complete the activity. If activity was not attempted, code reason: 7-Patient Refused. 9-Not Applicable-not attempted and the patient did not perform the activity before the current illness, exacerbation or injury. 10-Not Attempted due to Environmental Limitations-(lack of equipment, weather restraints, etc.). 88-Not Attempted due to Medical Conditions or Safety Concerns. Roll Left to Right (QC): 88 (NWB (R) shoulder/UE) Sit to Lying (QC): 4 (CGA to brace hip while patient lifted legs up onto bed.) Sit to Stand (QC): 4 Chair/Nax-ec-Yzwxi Xfer(QC): 3 (Min (A) with hemiwalker) Car Transfer (QC): 3 (Min (A) to lift (L) LE into vehicle. Mod (A) to guard patient as she stood up from car with 1 foot still in car - discussed safety concern.) Gait Training Does the Patient Walk?: Yes Distance: 75' Walk 10 feet (QC): 4 Walk 50 ft with 2 Turns(QC): 3 Walk 150 ft (QC): 88 Walking 10ft/uneven surface-QC: 88 Gait Persons Needed: 1 Gait Assistive Device: Walker Robin Wheelchair Training Does the Pt Use a Wheelchair?: No Wheel 50 ft with 2 turns (QC): 9 Wheel 150 ft (QC): 9 Type of Wheelchair: N/A Stair Training 1 Step (curb) (QC): 3 (mod (A) with hemiwalker and max encouragement to attempt) 4 Steps (QC): 88 12 Steps (QC): 88 Balance Picking up an Object (QC): 4 ADL-Treatment Eating (QC): 5 (set up) Oral Hygiene (QC): 4 (Supervision standing at sink.) Shower/Bathe Self (QC): 3 (Assist with washing/drying abdominal pannus, LUE, BLE feet) Upper Body Dressing (QC): 3 (Mod A ) Lower Body Dressing (QC): 4 (SBA, increased time required) On/Off Footwear (QC): 5 (Pt able to doff gripper socks and don slip on shoes afer set up) Toileting Hygiene (QC): 4 (SBA) Toilet Transfer (QC): 4 (SBA) Assessment/Plan Assessment and Plan Assess & Plan/Chief Complaint Assessment: Right humerus fracture affecting dominant arm and hand Obesity Advanced age Falls Plan: PT OT AD use Monitor pain 05/04/2023: Refuses AD Refuses splint 05/05/2023: Monitor pain Pursue dispo 05/06/2023: Add pain medication Add lozenges 05/07/2023: Pain medication as needed (1) Right humeral fracture Status: Acute (2) Intractable pain (3) Fall on same level from tripping Status: Acute BERKLEY VEGA DO May 07, 2023 06:15
[2023-05-07] MEDS: HYDROcodone/ACETAMINOPHEN 5 MG/325 MG TABLET PO PRN ×4 (07:49→21:52)
[2023-05-07] MEDS: BENZOCAINE LOZENGES 1 EACH PO PRN ×2 (07:49→21:51)
[2023-05-07 07:50] VITALS: BP 134/64
[2023-05-07] MEDS: MICONAZOLE 2% POWDER 90 GM TOP SCH ×2 (07:50→21:52)
[2023-05-07] MEDS: NYSTATIN CREAM 30 GM TUBE TP SCH ×3 (07:50→21:52)
[2023-05-07] MEDS: DOCUSATE SODIUM 100 MG CAPSULE PO SCH ×2 (08:28→21:51)
[2023-05-07] MEDS: SENNA W/DOCUSATE TABLET PO SCH ×2 (08:29→21:51)
[2023-05-07 19:40] VITALS: BP 128/58
[2023-05-08] MEDS: ENOXAPARIN 40 MG/0.4 ML SYRINGE SC SCH ×2 (04:23→17:27)
[2023-05-08] MEDS: HYDROcodone/ACETAMINOPHEN 5 MG/325 MG TABLET PO PRN ×4 (04:33→22:11)
--- NOTE | 2023-05-08 07:16 | PM&R Progress Note ---
Subjective HPI/CC On Admission Date Seen by Provider: May 08, 2023 Time Seen by Provider: 12:00 Subjective/Events-last exam 05/08/2023: Patient doing really well Right hand is painful so we will initiate diclofenac gel Heating pad to lower back pain will be trialed 05/07/2023: Patient in a good mood [facility] for [facility] discharge Moving around well 05/06/2023: Patient doing a lot better Pain medication is requested Lozenges will be ordered No other falls 05/05/2023: No major issues Pain is controlled No falls No pain when not moving 05/04/2023: Patient declined the splint ortho had provided her Not satisfied with the quad cane and refuses to use it Just wants to go to alf so she can be "taken care of Review of Systems General: Fatigue, Malaise Objective Exam Vital Signs Vital Signs Date Time Temp Pulse Resp B/P (MAP) Pulse Ox O2 Delivery O2 Flow Rate FiO2 05/08/23 09:00 98 Room Air 05/08/23 08:07 36.9 82 18 130/60 (83) Capillary Refill : General Appearance: No Apparent Distress, WD/WN, Obese HEENT: PERRL/EOMI, Normal ENT Inspection, Pharynx Normal Neck: Full Range of Motion, Normal Inspection, Non Tender, Supple, Carotid Bruit Respiratory: Chest Non Tender, Lungs Clear, Normal Breath Sounds, No Accessory Muscle Use, No Respiratory Distress Cardiovascular: Regular Rate, Rhythm, No Edema, No Gallop, No JVD, No Murmur, Normal Peripheral Pulses Gastrointestinal: Normal Bowel Sounds, No Organomegaly, No Pulsatile Mass, Non Tender, Soft Back: Normal Inspection, No CVA Tenderness, No Vertebral Tenderness Extremity: Normal Capillary Refill, Normal Inspection, Normal Range of Motion (except right arm in sling), Non Tender, No Calf Tenderness, No Pedal Edema Neurologic/Psychiatric: Alert, Oriented x3, Normal Mood/Affect, 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 FIM Transfers Therapy Code Descriptions/Definitions Functional [place] Measure: 0=Not Assessed/NA 4=Minimal Assistance 1=Total Assistance 5=Supervision or Setup 2=Maximal Assistance 6=Modified [place] 3=Moderate Assistance 7=Complete IndependenceSCALE: Activities may be completed with or without assistive devices. 8-Pggiepdbmz-chpvhgc completes the activity by him/herself with no assistance from a helper. 5-Set-up or Clean-up Assistance-helper sets up or cleans up; patient completes activity. [place] assists only prior to or following the activity. 4-Supervision or Touching Assistance-helper provides verbal cues and/or t ouching/steadying and/or contact guard assistance as patient completes activity. Assistance may be provided throughout the activity or intermittently. 3-Partial/Moderate Assistance-helper does LESS THAN HALF the effort. [place] lifts, holds or supports trunk or limbs, but provides less than half the effort. 2-Substantial/Maximal Assistance-helper does MORE THAN HALF the effort. [place] lifts or holds trunk or limbs and provides more than half the effort. 4-Rfchmlhbi-sudsgu does ALL the effort. Patient does none of the effort to complete the activity. Or, the assistance of 2 or more helpers is required for the patient to complete the activity. If activity was not attempted, code reason: 7-Patient Refused. 9-Not Applicable-not attempted and the patient did not perform the activity before the current illness, exacerbation or injury. 10-Not Attempted due to Environmental Limitations-(lack of equipment, weather restraints, etc.). 88-Not Attempted due to Medical Conditions or Safety Concerns. Roll Left to Right (QC): 88 (NWB (R) shoulder/UE) Sit to Lying (QC): 4 (CGA to brace hip while patient lifted legs up onto bed.) Sit to Stand (QC): 4 Chair/Xam-fb-Atavt Xfer(QC): 3 (Min (A) with hemiwalker) Car Transfer (QC): 3 (Min (A) to lift (L) LE into vehicle. Mod (A) to guard p atient as she stood up from car with 1 foot still in car - discussed safety concern.) Gait Training Does the Patient Walk?: Yes Distance: 75' Walk 10 feet (QC): 4 Walk 50 ft with 2 Turns(QC): 3 Walk 150 ft (QC): 88 Walking 10ft/uneven surface-QC: 88 Gait Persons Needed: 1 Gait Assistive Device: Walker Robin Wheelchair Training Does the Pt Use a Wheelchair?: No Wheel 50 ft with 2 turns (QC): 9 Wheel 150 ft (QC): 9 Type of Wheelchair: N/A Stair Training 1 Step (curb) (QC): 3 (mod (A) with hemiwalker and max encouragement to attempt) 4 Steps (QC): 88 12 Steps (QC): 88 Balance Picking up an Object (QC): 4 ADL-Treatment Eating (QC): 5 (set up) Oral Hygiene (QC): 4 (Supervision standing at sink.) Shower/Bathe Self (QC): 3 (Assist with washing/drying abdominal pannus, LUE, BLE feet) Upper Body Dressing (QC): 3 (Mod A ) Lower Body Dressing (QC): 4 (SBA, increased time required) On/Off Footwear (QC): 5 (Pt able to doff gripper socks and don slip on shoes afer set up) Toileting Hygiene (QC): 4 (SBA) Toilet Transfer (QC): 4 (SBA) Assessment/Plan Assessment and Plan Assess & Plan/Chief Complaint Assessment: Right humerus fracture affecting dominant arm and hand Obesity Advanced age Falls Plan: PT OT AD use Monitor pain 05/04/2023: Refuses AD Refuses splint 05/05/2023: Monitor pain Pursue dispo 05/06/2023: Add pain medication Add lozenges 05/07/2023: Pain medication as needed 05/08/2023: Supportive care Monitor closely (1) Right humeral fracture Status: Acute (2) Intractable pain (3) Fall on same level from tripping Status: Acute BERKLEY VEGA DO May 08, 2023 07:16
[2023-05-08 08:07] VITALS: BP 130/60
[2023-05-08] MEDS: MICONAZOLE 2% POWDER 90 GM TOP SCH ×2 (08:08→20:21)
[2023-05-08] MEDS: NYSTATIN CREAM 30 GM TUBE TP SCH ×3 (08:08→20:20)
[2023-05-08] MEDS: SENNA W/DOCUSATE TABLET PO SCH ×2 (08:08→20:20)
[2023-05-08] MEDS: DOCUSATE SODIUM 100 MG CAPSULE PO SCH ×2 (08:08→20:20)
[2023-05-08] MEDS: DICLOFENAC 1% GEL 50 GM TUBE TOP PRN (14:04)
[2023-05-08 20:32] VITALS: BP 138/60
[2023-05-09] MEDS: ENOXAPARIN 40 MG/0.4 ML SYRINGE SC SCH ×2 (03:42→16:52)
[2023-05-09] MEDS: DICLOFENAC 1% GEL 50 GM TUBE TOP PRN ×3 (06:00→18:34)
[2023-05-09 06:16] LABS: EOSINOPHILS % (AUTO) 1 % (0-10); HEMOGLOBIN 13.6 g/dL (11.5-16.0)
[2023-05-09 06:18] LABS: BASOPHILS % (AUTO) 1 % (0-10); HEMATOCRIT 43 % (35-52); LYMPHOCYTES # (AUTO) 0.7 10^3/uL (1.0-4.0); LYMPHOCYTES % (AUTO) 29 % (12-44); MEAN CORPUSCULAR HEMOGLOBIN 29 pg (25-34); MEAN CORPUSCULAR HGB CONC 32 g/dL (32-36); MEAN CORPUSCULAR VOLUME 93 fL (80-99); MEAN PLATELET VOLUME 9.2 fL (9.0-12.2); MONOCYTES # (AUTO) 0.2 10^3/uL (0.0-1.0); MONOCYTES % (AUTO) 10 % (0-12); NEUTROPHILS # (AUTO) 1.3 10^3/uL (1.8-7.8); NEUTROPHILS % (AUTO) 56 % (42-75); PLATELET COUNT 109 10^3/uL (130-400); WHITE BLOOD COUNT 2.3 10^3/uL (4.3-11.0)
[2023-05-09 06:39] LABS: ALBUMIN 3.4 GM/DL (3.2-4.5); BILIRUBIN,TOTAL 0.7 MG/DL (0.1-1.0); CALCIUM 8.5 MG/DL (8.5-10.1); CREATININE SERUM 0.84 MG/DL (0.60-1.30); TOTAL PROTEIN 6.4 GM/DL (6.4-8.2)
[2023-05-09 07:03] LABS: SMEAR SCAN COMMENT YES
--- NOTE | 2023-05-09 07:13 | PM&R Progress Note ---
Subjective HPI/CC On Admission Date Seen by Provider: May 09, 2023 Time Seen by Provider: 10:00 Subjective/Events-last exam 05/09/2023: Multiple issues Wants to soak feet in ice water to help swelling and I approved No report of liver disease but elevated LFT's prompting acute viral hepatitis panel added to labs and will obtain USG of liver due to suspicion she has ESLD due to fatty liver [place] 05/08/2023: Patient doing really well Right hand is painful so we will initiate diclofenac gel Heating pad to lower back pain will be trialed 05/07/2023: Patient in a good mood Ready for group home facility discharge Moving around well 05/06/2023: Patient doing a lot better Pain medication is requested Lozenges will be ordered No other falls 05/05/2023: No major issues Pain is controlled No falls No pain when not moving 05/04/2023: Patient declined the splint ortho had provided her Not satisfied with the quad cane and refuses to use it Just wants to go to care home so she can be "taken care of Review of Systems General: Fatigue, Malaise Objective Exam Vital Signs Vital Signs Date Time Temp Pulse Resp B/P (MAP) Pulse Ox O2 Delivery O2 Flow Rate FiO2 05/09/23 11:06 Room Air 05/09/23 08:00 36.6 71 14 127/77 (94) 99 Capillary Refill : General Appearance: No Apparent Distress, WD/WN, Obese HEENT: PERRL/EOMI, Normal ENT Inspection, Pharynx Normal Neck: Full Range of Motion, Normal Inspection, Non Tender, Supple, Carotid Bru it Respiratory: Chest Non Tender, Lungs Clear, Normal Breath Sounds, No Accessory Muscle Use, No Respiratory Distress Cardiovascular: Regular Rate, Rhythm, No Edema, No Gallop, No JVD, No Murmur, Normal Peripheral Pulses Gastrointestinal: Normal Bowel Sounds, No Organomegaly, No Pulsatile Mass, Non Tender, Soft Back: Normal Inspection, No CVA Tenderness, No Vertebral Tenderness Extremity: Normal Capillary Refill, Normal Inspection, Normal Range of Motion (except right arm in sling), Non Tender, No Calf Tenderness, No Pedal Edema Neurologic/Psychiatric: Alert, Oriented x3, Normal Mood/Affect, baby nurse II-XII Norm as Tested, Motor Weakness (right arm and hand due to pain of fracture) Skin: Normal Color, Warm/Dry Lymphatic: No Adenopathy Results/Procedures Lab Laboratory Tests 05/09/23 06:00 Patient resulted labs reviewed. FIM Transfers Therapy Code Descriptions/Definitions Functional [place] Measure: 0=Not Assessed/NA 4=Minimal Assistance 1=Total Assistance 5=Supervision or Setup 2=Maximal Assistance 6=Modified [place] 3=Moderate Assistance 7=Complete IndependenceSCALE: Activities may be completed with or without assistive devices. 9-Imwkduapvm-hxdsgzq completes the activity by him/herself with no assistance from a helper. 5-Set-up or Clean-up Assistance-helper sets up or cleans up; patient completes activity. [place] assists only prior to or following the activity. 4-Supervision or Touching Assistance-helper provides verbal cues and/or touching/steadying and/or contact guard assistance as patient completes activity. Assistance may be provided throughout the activity or intermittently. 3-Partial/Moderate Assistance-helper does LESS THAN HALF the effort. [place] lifts, holds or supports trunk or limbs, but provides less than half the effort. 2-Substantial/Maximal Assistance-helper does MORE THAN HALF the effort. [place] lifts or holds trunk or limbs and provides more than half the effort. 9-Sncxmfigi-irimsa does ALL the effort. Patient does none of the effort to complete the activity. Or, the assistance of 2 or more helpers is required for the patient to complete the activity. If activity was not attempted, code reason: 7-Patient Refused. 9-Not Applicable-not attempted and the patient did not perform the activity before the current illness, exacerbation or injury. 10-Not Attempted due to Environmental Limitations-(lack of equipment, weather restraints, etc.). 88-Not Attempted due to Medical Conditions or Safety Concerns. Roll Left to Right (QC): 88 (NWB (R) shoulder/UE) Sit to Lying (QC): 4 (CGA to brace hip while patient lifted legs up onto bed.) Sit to Stand (QC): 4 Chair/Xgc-vv-Gagtj Xfer(QC): 3 (Min (A) with hemiwalker) Car Transfer (QC): 3 (Min (A) to lift (L) LE into vehicle. Mod (A) to guard patient as she stood up from car with 1 foot still in car - discussed safety c oncern.) Gait Training Does the Patient Walk?: Yes Distance: 75' Walk 10 feet (QC): 4 Walk 50 ft with 2 Turns(QC): 3 Walk 150 ft (QC): 88 Walking 10ft/uneven surface-QC: 88 Gait Persons Needed: 1 Gait Assistive Device: Walker Robin Wheelchair Training Does the Pt Use a Wheelchair?: No Wheel 50 ft with 2 turns (QC): 9 Wheel 150 ft (QC): 9 Type of Wheelchair: N/A Stair Training 1 Step (curb) (QC): 3 (mod (A) with hemiwalker and max encouragement to attempt) 4 Steps (QC): 88 12 Steps (QC): 88 Balance Picking up an Object (QC): 4 ADL-Treatment Eating (QC): 5 (set up) Oral Hygiene (QC): 4 (Supervision standing at sink.) Shower/Bathe Self (QC): 3 (Assist with washing/drying abdominal pannus, LUE, BLE feet) Upper Body Dressing (QC): 3 (Mod A ) Lower Body Dressing (QC): 4 (SBA, increased time required) On/Off Footwear (QC): 5 (Pt able to doff gripper socks and don slip on shoes afer set up) Toileting Hygiene (QC): 4 (SBA) Toilet Transfer (QC): 4 (SBA) Assessment/Plan Assessment and Plan Assess & Plan/Chief Complaint Assessment: Right humerus fracture affecting dominant arm and hand Obesity Advanced age Falls Suspicion for ESLD due to [place]/fatty liver obtaining USG and added labs to morning ones Plan: PT OT AD use Monitor pain 05/04/2023: Refuses AD Refuses splint 05/05/2023: Monitor pain Pursue dispo 05/06/2023: Add pain medication Add lozenges 05/07/2023: Pain medication as needed 05/08/2023: Supportive care Monitor closely 05/09/2023: USG tomorrow Pain control SNF (1) Right humeral fracture Status: Acute (2) Intractable pain (3) Fall on same level from tripping Status: Acute BERKLEY VEGA DO May 09, 2023 07:13
[2023-05-09] MEDS: DOCUSATE SODIUM 100 MG CAPSULE PO SCH ×2 (07:20→20:32)
[2023-05-09] MEDS: HYDROcodone/ACETAMINOPHEN 5 MG/325 MG TABLET PO PRN ×4 (07:21→22:06)
[2023-05-09] MEDS: NYSTATIN CREAM 30 GM TUBE TP SCH ×3 (07:21→20:33)
[2023-05-09] MEDS: SENNA W/DOCUSATE TABLET PO SCH ×2 (07:21→20:33)
[2023-05-09] MEDS: MICONAZOLE 2% POWDER 90 GM TOP SCH ×2 (07:21→20:33)
[2023-05-09 08:00] VITALS: BP 127/77
--- NOTE | 2023-05-09 12:51 | Occupational Ther Daily Note ---
OT Current Status-Daily Note Subjective Pt consented to OT session this A.M. Co-treat with PT to decrease fall risk, improve standing tolerance and overall strength to complete functional tasks to decrease burden of care. PT focusing on standing and B LE strengthening while OT focusing on ADLs, assisting with standing and strengthening B UE's. Mental Status/Objective Patient Orientation: Person, Place, Time, Situation ADL-Treatment Therapy Code Descriptions/Definitions Functional [place] Measure: 0=Not Assessed/NA 4=Minimal Assistance 1=Total Assistance 5=Supervision or Setup 2=Maximal Assistance 6=Modified [place] 3=Moderate Assistance 7=Complete IndependenceSCALE: Activities may be completed with or without assistive devices. 7-Yivxspvwdj-idsqbup completes the activity by him/herself with no assistance from a helper. 5-Set-up or Clean-up Assistance-helper sets up or cleans up; patient completes activity. [place] assists only prior to or following the activity. 4-Supervision or Touching Assistance-helper provides verbal cues and/or touching/steadying and/or contact guard assistance as patient completes activity. Assistance may be provided throughout the activity or intermittently. 3-Partial/Moderate Assistance-helper does LESS THAN HALF the effort. [place] lifts, holds or supports trunk or limbs, but provides less than half the effort. 2-Substantial/Maximal Assistance-helper does MORE THAN HALF the effort. [place] lifts or holds trunk or limbs and provides more than half the effort. 9-Hnaushnxr-sjopns does ALL the effort. Patient does none of the effort to complete the activity. Or, the assistance of 2 or more helpers is required for the patient to complete the activity. If activity was not attempted, code reason: 7-Patient Refused. 9-Not Applicable-not attempted and the patient did not perform the activity be fore the current illness, exacerbation or injury. 10-Not Attempted due to Environmental Limitations-(lack of equipment, weather restraints, etc.). 88-Not Attempted due to Medical Conditions or Safety Concerns. Eating (QC): 5 (Set-up A for feeding.) Oral Hygiene (QC): 5 (Set-up A for oral care to open packages) Bathing Location: L Arm, L Upper Leg, R Upper Leg, Chest, Buttocks, Perineal Area Shower/Bathe Self (QC): 3 (Pt required partial/mod A for bathing while seated on built in shower bench utilizing hand held shower head and long handled sponge . Pt required (A) to bathe abdominal pannus and B feet. ) Upper Body Dressing (QC): 3 (Pt required partial/mod A for donning/doffing t- shirt while seated in WC. Pt declined threading RUE into sleeve at this time secondary to brace. Pt required (A) to pull shirt down in the back and over abdomen.) Lower Body Dressing (QC): 3 (Partial/mod A to joe/doff pants and underwear. Pt required (A) to thread BLE's into pants legs and underwear while seated. Therapist tried to educate pt on utilizing vending machine technician, with pt declining. Pt performed sit<>stand to pull pants over hips with CGA.) On/Off Footwear: 3 (Partial/mod A to doff socks seated in chair with the use of vending machine technician. ) Toileting Hygiene (QC): 4 (SBA for toileting with pt able to manage clothing and clean zulema area.) Toilet Transfer (QC): 4 (SBA for toilet t/f with pt utilizing GB's for safety. ) Education OT Patient Education: Energy conservation, Modified ADL techniques, Progress toward Goal/Update tx plan, Purpose of tx/functional activities, Reviewed precautions, Rehab process, Safety issues, Transfer techniques, Use of adapted equipment Teaching Recipient: Patient Teaching Methods: Demonstration, Discussion Response to Teaching: Verbalize Understanding, Return Demonstration, Reinforcement Needed OT [facility] Goals Log Handling Equipment Operator Goals Time Frame: May 27, 2023 Acute change in mental status: 0 Inattention: 1 Disorganized thinkin Altered level of consciousness: 0 Eating (QC): 6 Oral Hygiene (QC): 6 Toileting Hygiene (QC): 6 Shower/Bathe Self (QC): 6 Upper Body Dressing (QC): 6 Lower Body Dressing (QC): 6 On/Off Footwear (QC): 6 Additional Goals: 1-Demonstrate ADL Tasks, 2-Verbalize Understanding, 3- ImproveStrength/Malika 1=Demonstrate adherence to instructed precautions during ADL tasks. 2=Patient will verbalize/demonstrate understanding of assistive devices/modifications for ADL. 3=Patient will improve strength/tolerance for activity to enable patient to perform ADL's. OT Education/Plan Problem List/Assessment Assessment: Decreased Activ Tolerance, Decreased Safety Aware, Decreased UE Strength, Edema, Impaired Funct Balance, Impaired I ADL's, Impaired Self-Care Skills, Restricted Funct UE ROM Discharge Recommendations Plan/Recommendations: Continue POC Treatment Plan/Plan of Care Treatment,Training & Education: Yes Patient would benefit from OT for education, treatment and training to promote independence in ADL's, mobility, safety and/or upper extremity function for ADL's. Plan of Care: ADL Retraining, Functional Mobility, Group Exercise/Act as Ind, UE Funct Exercise/Act, UE Neuromus Re-Ed/Coord Treatment Duration: May 27, 2023 Frequency: At least 5 of 7 days/Wk (IRF) Estimated Hrs Per Day: 1.5 hours per day Agreement: Yes Rehab Potential: Fair Ending session, pt remained seated in bedside recliner with needs/call light in reach. Time Start Time: 09:00 Stop Time: 11:00 DATE: May 09, 2023 Total Time Billed (hr/min): 120 Billed Treatment Time 120 minutes Co-treat with PT 60 minutes ADL 8 MARIBETH BRISCOE May 09, 2023 12:51
--- NOTE | 2023-05-09 15:03 | Physical Therapy Daily Note ---
PT Daily Note-Current Subjective Pt sitting in recliner upon arrival. Pt agrees to Co-treat with OT to decrease fall risk, improve standing tolerance and overall strength to complete functional tasks to decrease burden of care. PT focusing on standing and B LE strengthening while OT focusing on ADLs, assisting with standing and strengthening B UE's. Pain Location: Right Location Body Site: Arm Pain Description: Ache Comment: Reports pain in R arm w/movement but doesn't rate Section J - Health Conditions 1. Rarely or not at all 2. Occasionally 3. Frequently 4. Almost constantly 8. Unable to answer Pain Effect on Sleep: 3 Pain Interference with Therapy: 3 Pain Interference w/Day-to-Day: 3 Mental Status Patient Orientation: Person, Place, Situation Attachments: Other-See Comments (Sling for R UE) Transfers SCALE: Activities may be completed with or without assistive devices. 1-Nmlpknobvd-zfzhimz completes the activity by him/herself with no assistance from a helper. 5-Set-up or Clean-up Assistance-helper sets up or cleans up; patient completes activity. [place] assists only prior to or following the activity. 4-Supervision or Touching Assistance-helper provides verbal cues and/or touching/steadying and/or contact guard assistance as patient completes activity. Assistance may be provided throughout the activity or intermittently. 3-Partial/Moderate Assistance-helper does LESS THAN HALF the effort. [place] lifts, holds or supports trunk or limbs, but provides less than half the effort. 2-Substantial/Maximal Assistance-helper does MORE THAN HALF the effort. [place] lifts or holds trunk or limbs and provides more than half the effort. 3-Khjaogzfk-bxfzdv does ALL the effort. Patient does none of the effort to complete the activity. Or, the assistance of 2 or more helpers is required for the patient to complete the activity. If activity was not attempted, code reason: 7-Patient Refused. 9-Not Applicable-not attempted and the patient did not perform the activity before the current illness, exacerbation or injury. 10-Not Attempted due to Environmental Limitations-(lack of equipment, weather restraints, etc.). 88-Not Attempted due to Medical Conditions or Safety Concerns. Roll Left & Right (QC): 5 Sit to Lying (QC): 5 Lying to Sitting/Side of Bed(Q: 5 Sit to Stand (QC): 6 Chair/Mjx-mn-Alpqp Xfer(QC): 6 Toilet Transfer (QC): 6 Car Transfer (QC): 6 Weight Bearing Weight Bearing/Tolerated Weight Bearing/Tolerated Gait Training Does the Patient Walk?: Yes Distance: 150' Walk 10 feet (QC): 6 Walk 50 ft with 2 Turns(QC): 6 Walk 150 ft (QC): 5 Walking 10ft/uneven surface-QC: 5 Gait Assistive Device: Walker Robin Wheelchair Training Does the Pt Use a Wheelchair?: No Wheel 50 ft with 2 turns (QC): 9 Wheel 150 ft (QC): 9 Stair Training Stair Training: Handrails/: uses walker #of Steps: 1 1 Step (curb) (QC): 4 4 Steps (QC): 88 12 Steps (QC): 88 Balance Picking up an Object (QC): 88 Special Test Comments Pt reports dizziness with bending over and is unable to miner pick object from floor. Treatments Pt completes QC scoring items listed above before returning to room for shower & other ADLs w/OT. All needs met. PT departs and OT continues tx. Assessment Current Status: Good Progress Pt easily distracted and needs constantly VC to stay on task since pt likes to tell stories or why pt is unable to complete task as asked by therapist. Pt is noncompliant at times. PT Supply Chain Intern Goals Half-Way Goals PT Half-Way Goals Time Frame: May 17, 2023 Roll Left & Right (QC): 88 Sit to Lying (QC): 6 Lying-Sitting on Side/Bed(QC): 6 Sit to Stand (QC): 6 Chair/Enm-qe-Zenvy Xfer(QC): 6 Toilet Transfer (QC): 6 Car Transfer (QC): 5 Does the Patient Walk: Yes Walk 10 feet (QC): 6 Walk 50ft with 2 Turns (QC): 6 Walk 150 ft (QC): 6 Walking 10ft on Uneven Surface: 6 1 Step (curb) (QC): 4 4 Steps (QC): 4 12 Steps (QC): 4 Picking up an Object (QC): 5 Does the Pt use WC or Scooter?: No Wheel 50 feet with 2 turns (QC: 9 Type: N/A Wheel 150 feet: 9 Type: N/A PT Plan Problem List Problem List: Activity Tolerance, Safety Treatment/Plan Treatment Plan: Continue Plan of Care Treatment Plan: Bed Mobility, Education, Functional Activity Malika, Functional Strength, Group Therapy, Gait, Safety, Therapeutic Exercise, Transfers Treatment Duration: May 17, 2023 Frequency: 5 times per week Estimated Hrs Per Day: 1.5 hours per day Patient and/or Family Agrees t: Yes Safety Risks/Education Patient Education: Gait Training, Correct Positioning, Safety Issues Teaching Recipient: Patient Teaching Methods: Discussion Response to Teaching: Verbalize Understanding, Reinforcement Needed Time Time In: 0900 Time Out: 1000 DATE: May 09, 2023 Total Billed Treatment Time: 60 Total Billed Treatment Co-treat w/OT for 60m (900-1000) 1, GT x2 (30m) & FA x2 (30m) KATE CHRISTENSEN PTA May 09, 2023 15:03
[2023-05-09 19:46] LABS: HEPATITIS C ANTIBODY C Non-Reactive (Non-Reactive)
[2023-05-09 20:39] VITALS: BP 141/66
[2023-05-10] MEDS: ENOXAPARIN 40 MG/0.4 ML SYRINGE SC SCH ×2 (04:42→17:15)
--- NOTE | 2023-05-10 05:06 | PM&R Progress Note ---
Subjective HPI/CC On Admission Date Seen by Provider: May 10, 2023 Time Seen by Provider: 10:30 Subjective/Events-last exam 05/10/2023: Abdominal ultrasound did not show any evidence of fatty liver or masses Hepatitis B core IgM antibody noted to be positive I did update patient on this [facility] department will be in contact so I will send this to primary care provider Candida Britton 05/09/2023: Multiple issues Wants to soak feet in ice water to help swelling and I approved No report of liver disease but elevated LFT's prompting acute viral hepatitis panel added to labs and will obtain USG of liver due to suspicion she has ESLD due to fatty liver BRICE 05/08/2023: Patient doing really well Right hand is painful so we will initiate diclofenac gel Heating pad to lower back pain will be trialed 05/07/2023: Patient in a good mood Ready for nursing home facility discharge Moving around well 05/06/2023: Patient doing a lot better Pain medication is requested Lozenges will be ordered No other falls 05/05/2023: No major issues Pain is controlled No falls No pain when not moving 05/04/2023: Patient declined the splint ortho had provided her Not satisfied with the quad cane and refuses to use it Just wants to go to skilled nursing so she can be "taken care of Review of Systems General: Fatigue, Malaise Objective Exam Vital Signs Vital Signs Date Time Temp Pulse Resp B/P (MAP) Pulse Ox O2 Delivery O2 Flow Rate FiO2 05/10/23 09:01 Room Air 05/10/23 08:06 36.5 60 18 130/63 (85) 97 Capillary Refill : General Appearance: No Apparent Distress, WD/WN, Obese HEENT: PERRL/EOMI, Normal ENT Inspection, Pharynx Normal Neck: Full Range of Motion, Normal Inspection, Non Tender, Supple, Carotid Bruit Respiratory: Chest Non Tender, Lungs Clear, Normal Breath Sounds, No Accessory Muscle Use, No Respiratory Distress Cardiovascular: Regular Rate, Rhythm, No Edema, No Gallop, No JVD, No Murmur, Normal Peripheral Pulses Gastrointestinal: Normal Bowel Sounds, No Organomegaly, No Pulsatile Mass, Non Tender, Soft Back: Normal Inspection, No CVA Tenderness, No Vertebral Tenderness Extremity: Normal Capillary Refill, Normal Inspection, Normal Range of Motion (except right arm in sling), Non Tender, No Calf Tenderness, No Pedal Edema Neurologic/Psychiatric: Alert, Oriented x3, Normal Mood/Affect, train attendant II-XII Norm as Tested, Motor Weakness (right arm and hand due to pain of fracture) Skin: Normal Color, Warm/Dry Lymphatic: No Adenopathy Results/Procedures Lab Laboratory Tests 05/10/23 06:02 Patient resulted labs reviewed. FIM Transfers Therapy Code Descriptions/Definitions Functional [place] Measure: 0=Not Assessed/NA 4=Minimal Assistance 1=Total Assistance 5=Supervision or Setup 2=Maximal Assistance 6=Modified [place] 3=Moderate Assistance 7=Complete IndependenceSCALE: Activities may be completed with or without assistive devices. 0-Pwybbjwmom-joblcef completes the activity by him/herself with no assistance from a helper. 5-Set-up or Clean-up Assistance-helper sets up or cleans up; patient completes activity. [place] assists only prior to or following the activity. 4-Supervision or Touching Assistance-helper provides verbal cues and/or touching/steadying and/or contact guard assistance as patient completes activity. Assistance may be provided throughout the activity or intermittently. 3-Partial/Moderate Assistance-helper does LESS THAN HALF the effort. [place] lifts, holds or supports trunk or limbs, but provides less than half the effort. 2-Substantial/Maximal Assistance-helper does MORE THAN HALF the effort. [place] lifts or holds trunk or limbs and provides more than half the effort. 4-Oqoqtayap-uligdf does ALL the effort. Patient does none of the effort to complete the activity. Or, the assistance of 2 or more helpers is required for the patient to complete the activity. If activity was not attempted, code reason: 7-Patient Refused. 9-Not Applicable-not attempted and the patient did not perform the activity before the current illness, exacerbation or injury. 10-Not Attempted due to Environmental Limitations-(lack of equipment, weather restraints, etc.). 88-Not Attempted due to Medical Conditions or Safety Concerns. Roll Left to Right (QC): 5 Sit to Lying (QC): 5 Sit to Stand (QC): 6 Chair/Pvo-tl-Empqh Xfer(QC): 6 Car Transfer (QC): 6 Gait Training Does the Patient Walk?: Yes Distance: 150' Walk 10 feet (QC): 6 Walk 50 ft with 2 Turns(QC): 6 Walk 150 ft (QC): 5 Walking 10ft/uneven surface-QC: 5 Gait Persons Needed: 1 Gait Assistive Device: Walker Robin Wheelchair Training Does the Pt Use a Wheelchair?: No Wheel 50 ft with 2 turns (QC): 9 Wheel 150 ft (QC): 9 Type of Wheelchair: N/A Stair Training Stair Training: Handrails/: uses walker #of Steps: 1 1 Step (curb) (QC): 4 4 Steps (QC): 88 12 Steps (QC): 88 Balance Picking up an Object (QC): 88 ADL-Treatment Eating (QC): 5 (Set-up A for feeding.) Oral Hygiene (QC): 5 (Set-up A for oral care to open packages) Bathing Location: L Arm, L Upper Leg, R Upper Leg, Chest, Buttocks, Perineal Area Shower/Bathe Self (QC): 3 (Pt required partial/mod A for bathing while seated on built in shower bench utilizing hand held shower head and long handled sponge. Pt required (A) to bathe abdominal pannus and B feet. ) Upper Body Dressing (QC): 3 (Pt required partial/mod A for donning/doffing t- shirt while seated in WC. Pt declined threading RUE into sleeve at this time secondary to brace. Pt required (A) to pull shirt down in the back and over abdomen.) Lower Body Dressing (QC): 3 (Partial/mod A to joe/doff pants and underwear. Pt required (A) to thread BLE's into pants legs and underwear while seated. Therapist tried to educate pt on utilizing retail pharmacy technician, with pt declining. Pt performed sit<>stand to pull pants over hips with CGA.) On/Off Footwear (QC): 3 (Partial/mod A to doff socks seated in chair with the use of retail pharmacy technician. ) Toileting Hygiene (QC): 4 (SBA for toileting with pt able to manage clothing and clean zulema area.) Toilet Transfer (QC): 4 (SBA for toilet t/f with pt utilizing GB's for safety. ) Assessment/Plan Assessment and Plan Assess & Plan/Chief Complaint Assessment: Right humerus fracture affecting dominant arm and hand Obesity Advanced age Falls Suspicion for ESLD due to BR[place]/fatty liver obtaining USG and added labs to morning ones HBcAB IgM + Plan: PT OT AD use Monitor pain 05/04/2023: Refuses AD Refuses splint 05/05/2023: Monitor pain Pursue dispo 05/06/2023: Add pain medication Add lozenges 05/07/2023: Pain medication as needed 05/08/2023: Supportive care Monitor closely 05/09/2023: USG tomorrow Pain control SNF 05/10/2023: Supportive care Monitor blood pressure (1) Right humeral fracture Status: Acute (2) Intractable pain (3) Fall on same level from tripping Status: Acute BERKLEY VEGA DO May 10, 2023 05:06
[2023-05-10 06:19] LABS: HEMOGLOBIN 13.1 g/dL (11.5-16.0)
[2023-05-10 06:20] LABS: BASOPHILS % (AUTO) 1 % (0-10); EOSINOPHILS # (AUTO) 0.1 10^3/uL (0.0-0.3); EOSINOPHILS % (AUTO) 3 % (0-10); HEMATOCRIT 41 % (35-52); LYMPHOCYTES # (AUTO) 0.8 10^3/uL (1.0-4.0); LYMPHOCYTES % (AUTO) 38 % (12-44); MEAN CORPUSCULAR HEMOGLOBIN 30 pg (25-34); MEAN CORPUSCULAR HGB CONC 32 g/dL (32-36); MEAN CORPUSCULAR VOLUME 93 fL (80-99); MEAN PLATELET VOLUME 9.3 fL (9.0-12.2); MONOCYTES # (AUTO) 0.2 10^3/uL (0.0-1.0); MONOCYTES % (AUTO) 11 % (0-12); NEUTROPHILS % (AUTO) 48 % (42-75); PLATELET COUNT 102 10^3/uL (130-400)
[2023-05-10 06:34] LABS: ALBUMIN 3.2 GM/DL (3.2-4.5); BILIRUBIN,TOTAL 0.5 MG/DL (0.1-1.0); CALCIUM 8.4 MG/DL (8.5-10.1); CREATININE SERUM 0.82 MG/DL (0.60-1.30); POTASSIUM 4.5 MMOL/L (3.6-5.0); TOTAL PROTEIN 6.1 GM/DL (6.4-8.2)
[2023-05-10 06:38] LABS: INR 0.9 (0.8-1.4); PROTHROMBIN TIME PATIENT 12.5 SEC (12.2-14.7)
[2023-05-10 08:06] VITALS: BP 130/63
[2023-05-10] MEDS: HYDROcodone/ACETAMINOPHEN 5 MG/325 MG TABLET PO PRN ×4 (08:08→22:09)
[2023-05-10] MEDS: NYSTATIN CREAM 30 GM TUBE TP SCH ×3 (08:08→22:10)
[2023-05-10] MEDS: DOCUSATE SODIUM 100 MG CAPSULE PO SCH ×2 (08:08→22:09)
[2023-05-10] MEDS: SENNA W/DOCUSATE TABLET PO SCH ×2 (08:08→22:08)
[2023-05-10] MEDS: MICONAZOLE 2% POWDER 90 GM TOP SCH ×2 (08:09→22:09)
--- NOTE | 2023-05-10 09:23 | Physical Therapy Daily Note ---
PT Daily Note-Current Subjective Pt laying Supine in bed. Pt agrees to PT. Pain Numeric Pain Scale: 10-Worst Possible Pain Location: Right Location Body Site: Arm Pain Description: Ache, Burning Comment: Pain reported 10/10 but no grimace throughout tx. Section J - Health Conditions 1. Rarely or not at all 2. Occasionally 3. Frequently 4. Almost constantly 8. Unable to answer Pain Effect on Sleep: 3 Pain Interference with Therapy: 3 Pain Interference w/Day-to-Day: 3 Mental Status Patient Orientation: Person, Place, Situation Attachments: Other-See Comments (Sling for R UE) Transfers SCALE: Activities may be completed with or without assistive devices. 6-Ojzxadudbx-svwekai completes the activity by him/herself with no assistance from a helper. 5-Set-up or Clean-up Assistance-helper sets up or cleans up; patient completes activity. [place] assists only prior to or following the activity. 4-Supervision or Touching Assistance-helper provides verbal cues and/or touching/steadying and/or contact guard assistance as patient completes activity. Assistance may be provided throughout the activity or intermittently. 3-Partial/Moderate Assistance-helper does LESS THAN HALF the effort. [place] lifts, holds or supports trunk or limbs, but provides less than half the effort. 2-Substantial/Maximal Assistance-helper does MORE THAN HALF the effort. [place] lifts or holds trunk or limbs and provides more than half the effort. 8-Pmergfnqh-ujfmoj does ALL the effort. Patient does none of the effort to complete the activity. Or, the assistance of 2 or more helpers is required for the patient to complete the activity. If activity was not attempted, code reason: 7-Patient Refused. 9-Not Applicable-not attempted and the patient did not perform the activity before the current illness, exacerbation or injury. 10-Not Attempted due to Environmental Limitations-(lack of equipment, weather restraints, etc.). 88-Not Attempted due to Medical Conditions or Safety Concerns. Roll Left & Right (QC): 5 Lying to Sitting/Side of Bed(Q: 5 Sit to Stand (QC): 5 Chair/Lst-ye-Gjxom Xfer(QC): 5 Weight Bearing Weight Bearing/Tolerated Weight Bearing/Tolerated Gait Training Does the Patient Walk?: Yes Distance: 200' Walk 10 feet (QC): 5 Walk 50 ft with 2 Turns(QC): 5 Walk 150 ft (QC): 5 Gait Assistive Device: Walker Robin Wheelchair Training Does the Pt Use a Wheelchair?: No Treatments OT/PT co-treat due to skill of 2 clinicians required which a rehab technician could not perform in order to coordinate UE/LEs, decrease fall risk, focus on higher level balance tasks, and due to pain. OT focused on ADLs, UE placement, cues for sequencing and safety, PT focused on LE placement, gross overall movement, transfers and mobility. Pt transferred supine to sit EOB, SBA, multiple VCs required for pt to attempt task herself. Pt perceives and requests more assistance than is actually needed throughout tx with transfers and ADLs. Pt do nned shirt on EOB, then used hemiwalker to transfer to toilet. Pt completed toileting and LB dressing, then stood at sink to wash hands. Pt used Robin walker to perform functional mobility in hallways and back to her room, able to locate 5/5 cones and retrieve cones using LUE. Pt transferred to recliner, and breakfast tray set up for pt. Post tx, pt in bed, call light in reach and all needs met. Education provided throughout tx on safety with mobility and transfers including recommendation to continue using Robin walker, and pushing up from surface prior to standing. Pt requires VCs with all mobility/transfers. RN reports pt continue s to decline Robin walker with them, although education has been provided to pt and staff on importance of using HW. Assessment Current Status: Fair Progress Pt fatigues, needing RB. Pt needs extended time to complete tasks at her own pace. Pt is anxious during tx. PT Tutor Coordinator Goals Fdc Goals PT Fdc Goals Time Frame: May 17, 2023 Roll Left & Right (QC): 88 Sit to Lying (QC): 6 Lying-Sitting on Side/Bed(QC): 6 Sit to Stand (QC): 6 Chair/Kly-qx-Iiqre Xfer(QC): 6 Toilet Transfer (QC): 6 Car Transfer (QC): 5 Does the Patient Walk: Yes Walk 10 feet (QC): 6 Walk 50ft with 2 Turns (QC): 6 Walk 150 ft (QC): 6 Walking 10ft on Uneven Surface: 6 1 Step (curb) (QC): 4 4 Steps (QC): 4 12 Steps (QC): 4 Picking up an Object (QC): 5 Does the Pt use WC or Scooter?: No Wheel 50 feet with 2 turns (QC: 9 Type: N/A Wheel 150 feet: 9 Type: N/A PT Plan Problem List Problem List: Activity Tolerance, Safety Treatment/Plan Treatment Plan: Continue Plan of Care Treatment Plan: Bed Mobility, Education, Functional Activity Malika, Functional Strength, Group Therapy, Gait, Safety, Therapeutic Exercise, Transfers Treatment Duration: May 17, 2023 Frequency: 5 times per week Estimated Hrs Per Day: 1.5 hours per day Patient and/or Family Agrees t: Yes Safety Risks/Education Patient Education: Transfer Techniques, Correct Positioning, Safety Issues Teaching Recipient: Patient Teaching Methods: Discussion Response to Teaching: Reinforcement Needed Time Time In: 0800 Time Out: 929 DATE: May 10, 2023 Total Billed Treatment Time: 90 Total Billed Treatment Co-treat w/OT for 90m 1, GT x2 (30m) & FA x4 (60m) KATE CHRISTENSEN DEVELOPMENTAL SPECIALIST May 10, 2023 09:22
--- NOTE | 2023-05-10 09:28 | Occupational Ther Daily Note ---
OT Current Status-Daily Note Subjective Pt agreeable to therapy tx. Pt had received abdominal US prior to therapy, rates pain 10/10 upon OT arrival, although does not grimace or mention pain remainder of tx. RN aware of pt's pain level. Mental Status/Objective Patient Orientation: Person, Place, Time, Situation Attachments: Other-See Comments (CHIDI wilks) ADL-Treatment Therapy Code Descriptions/Definitions Functional [place] Measure: 0=Not Assessed/NA 4=Minimal Assistance 1=Total Assistance 5=Supervision or Setup 2=Maximal Assistance 6=Modified [place] 3=Moderate Assistance 7=Complete IndependenceSCALE: Activities may be completed with or without assistive devices. 6-Lhxeiycwtm-aapcowr completes the activity by him/herself with no assistance from a helper. 5-Set-up or Clean-up Assistance-helper sets up or cleans up; patient completes activity. Thelma assists only prior to or following the activity. 4-Supervision or Touching Assistance-helper provides verbal cues and/or touching/steadying and/or contact guard assistance as patient completes activity . Assistance may be provided throughout the activity or intermittently. 3-Partial/Moderate Assistance-helper does LESS THAN HALF the effort. Thelma lifts, holds or supports trunk or limbs, but provides less than half the effort. 2-Substantial/Maximal Assistance-helper does MORE THAN HALF the effort. Thelma lifts or holds trunk or limbs and provides more than half the effort. 6-Icuwkkqqq-vsvnhi does ALL the effort. Patient does none of the effort to complete the activity. Or, the assistance of 2 or more helpers is required for the patient to complete the activity. If activity was not attempted, code reason: 7-Patient Refused. 9-Not Applicable-not attempted and the patient did not perform the activity before the current illness, exacerbation or injury. 10-Not Attempted due to Environmental Limitations-(lack of equipment, weather restraints, etc.). 88-Not Attempted due to Medical Conditions or Safety Concerns. Eating (QC): 5 Upper Body Dressing (QC): 3 Lower Body Dressing (QC): 3 (min A ) Other Treatment OT/PT cotreat due to skill of 2 clinicians required which a tissue technician could not perform in order to coordinate UE/LEs, decrease fall risk, focus on higher level balance tasks, and due to pain. OT focused on ADLs, UE placement, cues for sequencing and safety, PT focused on LE placement, gross overall movement, transfers and mobility. Pt transferred supine to sit EOB, SBA, multiple VCs required for pt to attempt task herself. Pt perceives and requests more assistance than is actually needed throughout tx with transfers and ADLs. Pt donned shirt on EOB, then used hemiwalker to transfer to toilet. Pt completed toileting and LB dressing, then stood at sink to wash hands. Pt used hemiwalker to perform functional mobility in hallways and back to her room, able to locate 5/5 cones and retrieve cones using LUE. Pt transferred to recliner, and breakfast tray set up for pt. Post tx, pt in bed, call light in reach and all needs met. Education provided throughout tx on safety with mobility and transfers including recommendation to continue using Robin walker, and pushing up from surface prior to standing. Pt requires VCs with all mobility/transfers. RN reports pt continues to decline Robin walker with them, although education has been provided to pt and staff on importance of using HW. Education OT Patient Education: Correct positioning, Energy conservation, Modified ADL techniques, Progress toward Goal/Update tx plan, Purpose of tx/functional activities, Rehab process Teaching Recipient: Patient Teaching Methods: Discussion Response to Teaching: Verbalize Understanding BIMS CAM BIMS Expression of Ideas and Wants: Without Difficulty Understanding Verbal Content: Understands Brief Interview/Mental Status: Yes IRF DEBRA BIMS: IRF DEBRA BIMS Response (Comments) Value Repitition of Three Words Three 3 Recalls Socks Yes, After Cueing (Wear) 1 Recalls Blue Yes, No Cue Required 2 Recalls Bed Yes, No Cue Required 2 Year Correct 3 Month Accurate Within 5 Days 2 Day Correct 1 Total 14 CAM Mental Status Change/Baseline: 0 Inattention: 2 Disorganized thinkin Altered level of consciousness: 0 OT Nursing Home Goals Credit Collections Rep Goals Time Frame: May 27, 2023 Acute change in mental status: 0 Inattention: 1 Disorganized thinkin Altered level of consciousness: 0 Eating (QC): 6 Oral Hygiene (QC): 6 Toileting Hygiene (QC): 6 Shower/Bathe Self (QC): 6 Upper Body Dressing (QC): 6 Lower Body Dressing (QC): 6 On/Off Footwear (QC): 6 Additional Goals: 1-Demonstrate ADL Tasks, 2-Verbalize Understanding, 3- ImproveStrength/Malika 1=Demonstrate adherence to instructed precautions during ADL tasks. 2=Patient will verbalize/demonstrate understanding of assistive devices/modifications for ADL. 3=Patient will improve strength/tolerance for activity to enable patient to perform ADL's. OT Education/Plan Problem List/Assessment Assessment: Decreased Activ Tolerance, Decreased UE Strength, Impaired Funct Balance, Impaired I ADL's, Impaired Self-Care Skills Discharge Recommendations Plan/Recommendations: Continue POC Treatment Plan/Plan of Care Patient would benefit from OT for education, treatment and training to promote independence in ADL's, mobility, safety and/or upper extremity function for ADL's. Plan of Care: ADL Retraining, Functional Mobility, Group Exercise/Act as Ind, UE Funct Exercise/Act, UE Neuromus Re-Ed/Coord Treatment Duration: May 27, 2023 Frequency: At least 5 of 7 days/Wk (IRF) Estimated Hrs Per Day: 1.5 hours per day Agreement: Yes Rehab Potential: Fair Time Start Time: 08:00 Stop Time: 09:30 DATE: May 10, 2023 Total Time Billed (hr/min): 90 Billed Treatment Time cotreat x90' 1, ADL 4 (60'), FA 2 (30') PAUL BARBER OT May 10, 2023 09:28
[2023-05-10] MEDS: DICLOFENAC 1% GEL 50 GM TUBE TOP PRN ×2 (10:08→22:09)
--- NOTE | 2023-05-10 10:14 | Diagnostic Imaging Report ---
PROCEDURE: US Abdomen, limited. TECHNIQUE: Multiple realtime grayscale images were obtained over the abdomen in various projections. INDICATION: Cirrhosis COMPARISON: None available FINDINGS: The liver is unremarkable without focal hepatic mass. Normal direction of flow within the main portal vein. The gallbladder is not visualized, surgically absent per provided history. The common bile duct is within normal limits measuring 0.6 cm. Visualized portions of the pancreas, abdominal aorta, and inferior vena cava are unremarkable. The right kidney is unremarkable without hydronephrosis. No significant free fluid. Negative sonographic Gillespie sign. IMPRESSION: Cholecystectomy. Dictated by: Dictated on workstation # [id number]
[2023-05-10 20:30] VITALS: BP 119/56
[2023-05-11] MEDS: ENOXAPARIN 40 MG/0.4 ML SYRINGE SC SCH (03:02)
[2023-05-11] MEDS: HYDROcodone/ACETAMINOPHEN 5 MG/325 MG TABLET PO PRN ×3 (03:02→10:09)
[2023-05-11] MEDS ORDERED: DICL20GE TOP (05:16)
[2023-05-11] MEDS ORDERED: ACHD5005 PO (05:16)
[2023-05-11] MEDS ORDERED: ACET-2267 PO (05:16)
--- NOTE | 2023-05-11 05:18 | Discharge Summary ---
Diagnosis/Chief Complaint Date of Admission May 03, 2023 at 11:05 Date of Discharge Discharge Date: May 11, 2023 Discharge Diagnosis Assessment: Right humerus fracture affecting dominant arm and hand Obesity Advanced age Falls Suspicion for ESLD due to BRICE/fatty liver obtaining USG and added labs to morning ones HBcAB IgM + Plan: PT OT AD use Monitor pain 05/04/2023: Refuses AD Refuses splint 05/05/2023: Monitor pain Pursue dispo 05/06/2023: Add pain medication Add lozenges 05/07/2023: Pain medication as needed 05/08/2023: Supportive care Monitor closely 05/09/2023: USG tomorrow Pain control SNF 05/10/2023: Supportive care Monitor blood pressure (1) Right humeral fracture Status: Acute (2) Intractable pain (3) Fall on same level from tripping Status: Acute Discharge Summary Discharge Physical Examination Allergies: Coded Allergies: diphenhydramine HCl (Unverified Adverse Reaction, Mild, HYPERACTIVITY, 04/15/11) morphine (Verified Adverse Reaction, Unknown, HEADACHE, 03/08/23) Vitals & I&Os Vital Signs Date Time Temp Pulse Resp B/P (MAP) Pulse Ox O2 Delivery O2 Flow Rate FiO2 05/11/23 11:30 36.6 68 18 124/62 99 Room Air General Appearance: Alert, Oriented X3, Cooperative Respiratory: Clear to Auscultation Cardiovascular: Regular Rate Psych/Mental Status: Mental Status NL Hospital Course Was the Problem List Reviewed?: Yes Patient had an uneventful hospital course after she sustained a fall placed in observation after ER visit due to severe pain and unable to manage at home. She had difficulty tolerating any splint or sling and upon further work-up which showed elevated liver enzymes and hepatitis panel revealed hepatitis core an tibody IgM positive so [facility] will notify PCP and arrange for some sort of further testing. Overall she did very well she was able to tolerate hydrocodone and she was deemed stable for skilled. Labs (last 24 hrs) Laboratory Tests 05/04/23 05:40: Sodium Level 140, Potassium Level 3.8, Chloride Level 109H, Carbon Dioxide Level 21, Anion Gap 10, Blood Urea Nitrogen 18, Creatinine 0.81, Estimat Glomerular Filtration Rate 73, BUN/Creatinine Ratio 22, Glucose Level 97, Calcium Level 8.4L, Corrected Calcium 9.0, Total Bilirubin 1.0, Aspartate Amino Transf ( T/SGOT) 30, Alanine Aminotransferase (ALT/SGPT) 32, Alkaline Phosphatase 185H, Total Protein 5.6L, Albumin 3.2 05/04/23 05:43: White Blood Count 5.9, Red Blood Count 4.11, Hemoglobin 12.2, Hematocrit 38, Mean Corpuscular Volume 91, Mean Corpuscular Hemoglobin 30, Mean Corpuscular Hemoglobin Concent 33, Red Cell Distribution Width 14.6H, Platelet Count 152, Mean Platelet Volume 9.2, Immature Granulocyte % (Auto) 1, Neutrophils (%) (Auto) 71, Lymphocytes (%) (Auto) 19, Monocytes (%) (Auto) 8, Eosinophils (%) (Auto) 2, Basophils (%) (Auto) 1, Neutrophils # (Auto) 4.1, Lymphocytes # (Auto) 1.1, Monocytes # (Auto) 0.4, Eosinophils # (Auto) 0.1, Basophils # (Auto) 0.0, Immature Granulocyte # (Auto) 0.1 05/09/23 06:00: Sodium Level 137, Potassium Level 4.0, Chloride Level 105, Carbon Dioxide Level 24, Anion Gap 8, Blood Urea Nitrogen 14, Creatinine 0.84, Estimat Glomerular Filtration Rate 70, BUN/Creatinine Ratio 17, Glucose Level 79, Calcium Level 8.5, Corrected Calcium 9.0, Total Bilirubin 0.7, Aspartate Amino Transf (AST/SGOT) 142H, Alanine Aminotransferase (ALT/SGPT) 132H, Alkaline Phosphatase 258H, Total Protein 6.4, Albumin 3.4, White Blood Count 2.3L, Red Blood Count 4.64, Hemoglobin 13.6, Hematocrit 43, Mean Corpuscular Volume 93, Mean Corpuscular Hemoglobin 29, Mean Corpuscular Hemoglobin Concent 32, Red Cell Dist ribution Width 15.4H, Platelet Count 109L, Mean Platelet Volume 9.2, Immature Granulocyte % (Auto) 3, Neutrophils (%) (Auto) 56, Lymphocytes (%) (Auto) 29, Monocytes (%) (Auto) 10, Eosinophils (%) (Auto) 1, Basophils (%) (Auto) 1, Neutrophils # (Auto) 1.3L, Lymphocytes # (Auto) 0.7L, Monocytes # (Auto) 0.2, Eo sinophils # (Auto) 0.0, Basophils # (Auto) 0.0, Immature Granulocyte # (Auto) 0.1, Percent Immature Platelet Fraction 1.2, Gamma Glutamyl Transpeptidase 207H, Hepatitis A IgM Antibody Non-Reactive, Hepatitis B Surface Antigen Non-Reactive, Hepatitis B Core IgM Antibody ReactiveH, Hepatitis C Antibody Non-Reactive, Smear Scan YES 05/10/23 06:02: Sodium Level 139, Potassium Level 4.5, Chloride Level 105, Carbon Dioxide Level 27, Anion Gap 7, Blood Urea Nitrogen 18, Creatinine 0.82, Estimat Glomerular Filtration Rate 72, BUN/Creatinine Ratio 22, Glucose Level 81, Calcium Level 8.4L, Corrected Calcium 9.0, Total Bilirubin 0.5, Aspartate Amino Transf (AST/SGOT) 96H, Alanine Aminotransferase (ALT/SGPT) 117H, Alkaline Phosphatase 239H, Total Protein 6.1L, Albumin 3.2, White Blood Count 2.0L, Red Blood Count 4.40, Hemoglobin 13.1, Hematocrit 41, Mean Corpuscular Volume 93, Mean Corpuscular Hemoglobin 30, Mean Corpuscular Hemoglobin Concent 32, Red Cell Distribution Width 15.2H, Platelet Count 102L, Mean Platelet Volume 9.3, Immature Granulocyte % (Auto) 2, Neutrophils (%) (Auto) 48, Lymphocytes (%) (Auto) 38, Monocytes (%) (Auto) 11, Eosinophils (%) (Auto) 3, Basophils (%) (Auto) 1, Neutrophils # (Auto) 1.0L, Lymphocytes # (Auto) 0.8L, Monocytes # (Aut o) 0.2, Eosinophils # (Auto) 0.1, Basophils # (Auto) 0.0, Immature Granulocyte # (Auto) 0.0, Percent Immature Platelet Fraction 1.4, Prothrombin Time 12.5, INR Comment 0.9, Ammonia 35H Pending Labs Laboratory Tests 05/04/23 05:40: Sodium Level 140, Potassium Level 3.8, Chloride Level 109, Carbon Dioxide Level 21, Anion Gap 10, Blood Urea Nitrogen 18, Creatinine 0.81, Estimat Glomerular Filtration Rate 73, BUN/Creatinine Ratio 22, Glucose Level 97, Calcium Level 8.4, Corrected Calcium 9.0, Total Bilirubin 1.0, Aspartate Amino Transf (AST/SGOT) 30, Alanine Aminotransferase (ALT/SGPT) 32, Alkaline Phosphatase 185, Total Protein 5.6, Albumin 3.2 05/04/23 05:43: White Blood Count 5.9, Red Blood Count 4.11, Hemoglobin 12.2, Hematocrit 38, Mean Corpuscular Volume 91, Mean Corpuscular Hemoglobin 30, Mean Corpuscular Hemoglobin Concent 33, Red Cell Distribution Width 14.6, Platelet Count 152, Mean Platelet Volume 9.2, Immature Granulocyte % (Auto) 1, Neutrophils (%) (Auto) 71, Lymphocytes (%) (Auto) 19, Monocytes (%) (Auto) 8, Eosinophils (%) (Auto) 2, Basophils (%) (Auto) 1, Neutrophils # (Auto) 4.1, Lymphocytes # (Auto) 1.1, Monocytes # (Auto) 0.4, Eosinophils # (Auto) 0.1, Basophils # (Auto) 0.0, Immature Granulocyte # (Auto) 0.1 05/09/23 06:00: Sodium Level 137, Potassium Level 4.0, Chloride Level 105, Carbon Dioxide Level 24, Anion Gap 8, Blood Urea Nitrogen 14, Creatinine 0.84, Estimat Glomerular Filtration Rate 70, BUN/Creatinine Ratio 17, Glucose Level 79, Calcium Level 8.5, Corrected Calcium 9.0, Total Bilirubin 0.7, Aspartate Amino Transf (AST/SGOT) 142, Alanine Aminotransferase (ALT/SGPT) 132, Alkaline Phosphatase 258, Total Protein 6.4, Albumin 3.4, White Blood Count 2.3, Red Blood Count 4.64, Hemoglobin 13.6, Hematocrit 43, Mean Corpuscular Volume 93, Mean Corpuscular Hemoglobin 29, Mean Corpuscular Hemoglobin Concent 32, Red Cell Distribution Width 15.4, Platelet Count 109, Mean Platelet Volume 9.2, Immature Granulocyte % (Auto) 3, Neutrophils (%) (Auto) 56, Lymphocytes (%) (Auto) 29, Monocytes (%) (Auto) 10, Eosinophils (%) (Auto) 1, Basophils (%) (Auto) 1, Neutrophils # (Auto) 1.3, Lymphocytes # (Auto) 0.7, Monocytes # (Auto) 0.2, Eosinophils # (Auto) 0.0, Basophils # (Auto) 0.0, Immature Granulocyte # (Auto) 0.1, Percent Immature Platelet Fraction 1.2, Gamma Glutamyl Transpeptidase 207, Hepatitis A IgM Antibody Non-Reactive, Hepatitis B Surface Antigen Non-Reactive, Hepatitis B Core IgM Antibody Reactive, Hepatitis C Antibody Non-Reactive, Smear Scan YES 05/10/23 06:02: Sodium Level 139, Potassium Level 4.5, Chloride Level 105, Carbon Dioxide Level 27, Anion Gap 7, Blood Urea Nitrogen 18, Creatinine 0.82, Estimat Glomerular Filtration Rate 72, BUN/Creatinine Ratio 22, Glucose Level 81, Calcium Level 8.4, Corrected Calcium 9.0, Total Bilirubin 0.5, Aspartate Amino Transf (AST/SGOT) 96, Alanine Aminotransferase (ALT/SGPT) 117, Alkaline Phosphatase 239, Total Protein 6.1, Albumin 3.2, White Blood Count 2.0, Red Blood Count 4.40, Hemoglobin 13.1, Hematocrit 41, Mean Corpuscular Volume 93, Mean Corpuscular Hemoglobin 30, Mean Corpuscular Hemoglobin Concent 32, Red Cell Distribution Width 15.2, Platelet Count 102, Mean Platelet Volume 9.3, Immature Granulocyte % (Auto) 2, Neutrophils (%) (Auto) 48, Lymphocytes (%) (Auto) 38, Monocytes (%) (Auto) 11, Eosinophils (%) (Auto) 3, Basophils (%) (Auto) 1, Neutrophils # (Auto) 1.0, Lymphocytes # (Auto) 0.8, Monocytes # (Auto) 0.2, Eosinophils # (Auto) 0.1, Basophils # (Auto) 0.0, Immature Granulocyte # (Auto) 0.0, Percent Immature Platelet Fraction 1.4, Prothrombin Time 12.5, INR Comment 0.9, Ammonia 35 Discharge Home Medications: Active Scripts Active Voltaren Arthritis Pain (Diclofenac Sodium) 1 % Gel..gram. 0 Gm TOP QID PRN qid Hydrocodone-Acetamin 5-325 mg (Hydrocodone/Acetaminophen) 5 Mg-325 Mg Tablet 0.5-1 Ea PO Q4H PRN Tylenol Extra Strength (Acetaminophen) 500 Mg Tablet 1,000 Mg PO Q12H PRN Instructions to patient/family Please see electronic discharge instructions given to patient. Diagnosis/Problems Diagnosis/Problems (1) Right humeral fracture Status: Acute (2) Intractable pain (3) Fall on same level from tripping Status: Acute BERKLEY VEGA DO May 11, 2023 05:18
--- NOTE | 2023-05-11 05:18 | Discharge Inst-Skilled Nursing ---
Discharge Inst-Skilled NF Reconcile Patient Problems Problems Reviewed?: Yes Patient Instructions Patient Problems: Right humerus fracture Hepatitis B status Consult/Follow Up/Orders Follow Up Appt.: Candida Britton Skilled NF Admit to: Via [facility] Certification ([facility]) I certify that SNF services are required to be given on an inpatient basis b ecause of the above named patient's need for care home care on a continuing basis for the conditions(s) for which he/she was receiving inpatient hospital services prior to his/her transfer to the SNF. Longterm Facility Order: Nursing Services, Equalizing Saw Operator-Evaluate & Treat, Physical Therapy-Evaluate & Treat Oxygen Delivery Method: Room Air Resuscitation Status: Full Code New & Resume Previous Orders New Medications: Diclofenac Sodium (Voltaren Arthritis Pain) 1 % Gel..gram. 0 GM TOP QID PRN for PAIN-MILD (1-4), #1 TUBE qid Hydrocodone/Acetaminophen (Hydrocodone-Acetamin 5-325 mg) 5 Mg-325 Mg Tablet 0.5-1 EA PO Q4H PRN for PAIN-SEE DOSE INSTRUCTIONS, #20 TAB Changed Medications: Acetaminophen (Tylenol Extra Strength) 500 Mg Tablet 1000 MG PO Q12H PRN for PAIN-MILD (1-4), #30 TAB (Changed from: Q8H) Diane Javed May 11, 2023 05:17 DIANE JAVED DO May 11, 2023 05:18
[2023-05-11 07:22] VITALS: BP 124/62
[2023-05-11] MEDS: DICLOFENAC 1% GEL 50 GM TUBE TOP PRN (07:29)
[2023-05-11] MEDS: SENNA W/DOCUSATE TABLET PO SCH (07:30)
[2023-05-11] MEDS: DOCUSATE SODIUM 100 MG CAPSULE PO SCH (07:30)
[2023-05-11] MEDS: NYSTATIN CREAM 30 GM TUBE TP SCH (09:39)
[2023-05-11] MEDS: MICONAZOLE 2% POWDER 90 GM TOP SCH (09:39)
[2023-05-11 11:30] VITALS: BP 124/62
--- NOTE | 2023-05-11 14:43 | Therapy Team Discharge Summary ---
Therapy Discharge Summary Discharge Recommendations Date of Discharge May 11, 2023 at 11:30 Physical Therapy Roll Left to Right (QC): 5 Sit to Lying (QC): 5 Lying to Sitting/Side of Bed(Q: 5 Sit to Stand (QC): 5 Chair/Fws-ab-Pazaj Xfer(QC): 5 Toilet Transfer (QC): 4 Car Transfer (QC): 6 Does the Patient Walk: Yes Mode of Locomotion: Walk Anticipated Mode of Locomotion: Walk Walk 10 feet (QC): 5 Walk 50 ft with 2 Turns(QC): 5 Walk 150 ft (QC): 5 Walking 10ft on uneven surface: 5 Distance: 60'. States her (L) knee "gives out" sometimes. Gait Assistive Device: Walker Robin Does the Pt Use a Wheelchair: No Wheel 50 ft with 2 turns (QC): 9 Wheel 150 ft (QC): 9 Type of Wheelchair: N/A #of Steps: 1 1 Step (curb) (QC): 4 4 Steps (QC): 88 12 Steps (QC): 88 Balance Sitting Static: Normal Balance Sitting Dynamic: Fair Balance-Standing Static: Fair Picking up an Object (QC): 88 Occupational Therapy Pt admitted to ARU s/p humeral fx. At PLOF, pt was independent with ADLS and functional mobility. Upon initial evaluation, pt required set up with eating and oral care, partial/mod A with showering, UE dressing and footwear, and SBA with toileting and LE dressing. OT tx focused on increasing LUE strength and activity tolerance, increasing strength in R wrist/hand, increasing safety and independence with ADLS and functional mobility, and education on purpose/benefit of AD recommendations. Pt did not make significant progress towards goals, and did not attain any LTGs. Pt discharged to SNF, d/c from OT Decreased Activ Tolerance, Decreased UE Strength, Impaired Funct Balance, Impaired I ADL's, Impaired Self-Care Skills Eating (QC): 5 Oral Hygiene (QC): 5 (Set-up A for oral care to open packages) Shower/Bathe Self (QC): 3 (Pt required partial/mod A for bathing while seated on built in shower bench utilizing hand held shower head and long handled sponge. Pt required (A) to bathe abdominal pannus and B feet. ) Upper Body Dressing (QC): 3 Lower Body Dressing (QC): 3 (min A ) On/Off Footwear (QC): 3 (Partial/mod A to doff socks seated in chair with the use of brimming machine operator. ) Toileting Hygiene (QC): 4 (SBA for toileting with pt able to manage clothing and clean zulema area.) PT Financial Data Analyst Goals Financial Data Analyst Goals PT Intermediate Goals Time Frame: May 17, 2023 Roll Left to Right (QC): 88 Sit to Lying (QC): 6 Lying-Sitting on Side/Bed(QC): 6 Sit to Stand (QC): 6 Chair/Rfi-zk-Qjfth Xfer(QC): 6 Toilet/Commode Transfer (QC): 6 Car Transfer (QC): 5 Does the Patient Walk: Yes Walk 10 feet (QC): 6 Walk 10ft-Uneven Surface(QC): 6 Walk 50ft with 2 Turns (QC): 6 Walk 150 ft (QC): 6 Does the Pt use WC or Scooter?: No Wheel 50 feet with 2 turns (QC: 9 Type: N/A Wheel 150 feet: 9 Type: N/A 1 Step (curb) (QC): 4 4 Steps (QC): 4 12 Steps (QC): 4 Picking up an Object (QC): 5 OT Intermediate Goals Intermediate Goals Time Frame: May 27, 2023 Acute change in mental status: 0 Inattention: 2 Disorganized thinkin Altered level of consciousness: 0 Eating (QC): 6 (not met) Oral Hygiene (QC): 6 (not met) Toileting Hygiene (QC): 6 (not met) Shower/Bathe Self (QC): 6 (not met) Upper Body Dressing (QC): 6 (not met) Lower Body Dressing (QC): 6 (not met) On/Off Footwear (QC): 6 (not met) Additional Goals: 1-Demonstrate ADL Tasks, 2-Verbalize Understanding, 3- ImproveStrength/Malika 1=Demonstrate adherence to instructed precautions during ADL tasks. 2=Patient will verbalize/demonstrate understanding of assistive devices/modifications for ADL. 3=Patient will improve strength/tolerance for activity to enable patient to perform ADL's. PAUL BARBER OT May 11, 2023 14:43
--- NOTE | 2023-05-13 08:08 | Therapy Team Discharge Summary ---
Therapy Discharge Summary Discharge Recommendations Date of Discharge May 11, 2023 at 11:30 Physical Therapy Patient admitted 05/03/23 for (R) humerus fracture /p fall at home. Was having multiple falls at home but was not using an AD - was cruising on furniture. Patient initially was very receptive to hemiwalker use, stating it felt "much more secure", then in subsequent PT sessions, began refusing hemiwalker. Therapy continued to recommend hemiwalker vs cane, as patient was able to ascend/descend a curb step with hemiwalker, but not with SPC. Again, therapy does NOT recommend SPC use for this patient. She was noncompliant at times with therapy instruction. Patient continued to require cues for safety. Patient requested to be d/c'd to a SNF. Roll Left to Right (QC): 5 Sit to Lying (QC): 5 Lying to Sitting/Side of Bed(Q: 5 Sit to Stand (QC): 5 Chair/Smi-ov-Vawno Xfer(QC): 5 Toilet Transfer (QC): 5 Car Transfer (QC): 5 Does the Patient Walk: Yes Mode of Locomotion: Walk Anticipated Mode of Locomotion: Walk Walk 10 feet (QC): 5 Walk 50 ft with 2 Turns(QC): 5 Walk 150 ft (QC): 5 Walking 10ft on uneven surface: 5 Distance: 200' Gait Assistive Device: Walker Robin Does the Pt Use a Wheelchair: No Wheel 50 ft with 2 turns (QC): 9 Wheel 150 ft (QC): 9 Type of Wheelchair: N/A #of Steps: 1 1 Step (curb) (QC): 4 4 Steps (QC): 88 12 Steps (QC): 88 Balance Sitting Static: Normal Balance Sitting Dynamic: Fair Balance-Standing Static: Fair Picking up an Object (QC): 88 Occupational Therapy Decreased Activ Tolerance, Decreased UE Strength, Impaired Funct Balance, Impaired I ADL's, Impaired Self-Care Skills Eating (QC): 5 Oral Hygiene (QC): 5 (Set-up A for oral care to open packages) Shower/Bathe Self (QC): 3 (Pt required partial/mod A for bathing while seated on built in shower bench utilizing hand held shower head and long handled sponge. Pt required (A) to bathe abdominal pannus and B feet. ) Upper Body Dressing (QC): 3 Lower Body Dressing (QC): 3 (min A ) On/Off Footwear (QC): 3 (Partial/mod A to doff socks seated in chair with the use of p 3 armament/ordnance ima technician. ) Toileting Hygiene (QC): 4 (SBA for toileting with pt able to manage clothing and clean zulema area.) PT Care Home Goals Care Home Goals PT Quad Stayer Goals Time Frame: May 17, 2023 Roll Left to Right (QC): 88 Sit to Lying (QC): 6 Lying-Sitting on Side/Bed(QC): 6 Sit to Stand (QC): 6 Chair/Mop-wr-Tqxrm Xfer(QC): 6 Toilet/Commode Transfer (QC): 6 Car Transfer (QC): 5 Does the Patient Walk: Yes Walk 10 feet (QC): 6 Walk 10ft-Uneven Surface(QC): 6 Walk 50ft with 2 Turns (QC): 6 Walk 150 ft (QC): 6 Does the Pt use WC or Scooter?: No Wheel 50 feet with 2 turns (QC: 9 Type: N/A Wheel 150 feet: 9 Type: N/A 1 Step (curb) (QC): 4 4 Steps (QC): 4 12 Steps (QC): 4 Picking up an Object (QC): 5 OT Quad Stayer Goals Quad Stayer Goals Time Frame: May 27, 2023 Acute change in mental status: 0 Inattention: 2 Disorganized thinkin Altered level of consciousness: 0 Eating (QC): 6 (not met) Oral Hygiene (QC): 6 (not met) Toileting Hygiene (QC): 6 (not met) Shower/Bathe Self (QC): 6 (not met) Upper Body Dressing (QC): 6 (not met) Lower Body Dressing (QC): 6 (not met) On/Off Footwear (QC): 6 (not met) Additional Goals: 1-Demonstrate ADL Tasks, 2-Verbalize Understanding, 3- ImproveStrength/Malika 1=Demonstrate adherence to instructed precautions during ADL tasks. 2=Patient will verbalize/demonstrate understanding of assistive devices/modifications for ADL. 3=Patient will improve strength/tolerance for activity to enable patient to perform ADL's. Felicia Garcia PT May 13, 2023 08:07
== END 2023-05-11 11:30 | DRG 560 ==
PROVIDERS: ADMIT Internal Medicine; ATTEND Internal Medicine
DX: S49.1 Physeal fracture of lower end of humerus (principal); Z68.42 Body mass index [BMI] 45.0-49.9, adult; Z91.81 History of falling; K21.9 Gastro-esophageal reflux disease without esophagitis; E66.9 Obesity, unspecified; F41.9 Anxiety disorder, unspecified; F32.A Depression, unspecified; M10.9 Gout, unspecified; R74.8 Abnormal levels of other serum enzymes; Z79.899 Other long term (current) drug therapy; Z88.5 Allergy status to narcotic agent; Z91.09 Other allergy status, other than to drugs and biological substances; W01.0XXD Fall on same level from slipping, tripping and stumbling without subsequent striking against object, subsequent encounter
CPT/HCPCS: 36415; 76705; 80053; 80074; 82140; 82977; 85025; 85610

== ENCOUNTER 2023-07-01 11:15 | Outpatient (RCR) | payer MEDICARE, OTHER ==
[~2023-07-01 11:15] MED LIST changes: +DICL20GE TOP
== END 2023-07-05 | disposition home or self-care (01) ==
PROVIDERS: ATTEND Family Medicine Sports Medicine
DX: M62.81 Muscle weakness (generalized) (principal); Z91.81 History of falling

== ENCOUNTER 2023-08-01 15:00 | Outpatient (RCR) | payer MEDICARE, OTHER | END 2023-08-04 | disposition home or self-care (01) | PROVIDERS: ATTEND Family Medicine Sports Medicine | DX: M62.81 Muscle weakness (generalized) (principal); Z91.81 History of falling ==